=== PATIENT | female | born 1975 | race Caucasian/White ===

== ENCOUNTER → 2017-08-02 15:53 | Outpatient (REF) | payer OTHER, SELFPAY ==
[2017-08-02 17:47] LABS: Amphetamine/Metha Screen,Urine Negative ng/mL (<1000); Barbiturates Screen,Urine Negative ng/mL (<200); Benzodiazepines Screen,Urine Positive ng/mL (200); Cannabinoid Screen,Urine Negative ng/mL (<50); Cocaine Screen,Urine Negative ng/g (<300); Methadone Screen,Urine Negative ng/mL (<300); Opiate Screen,Urine Negative ng/mL (<300); Phencyclidine Screen,Urine Negative ng/mL (<25)
== END ==
LOC: LAB 15:53
PROVIDERS: Visit Provider Emergency Medicine
DX: F41.9 Anxiety disorder, unspecified (principal); R53.83 Other fatigue
CPT/HCPCS: 80305

== ENCOUNTER → 2017-10-27 12:47 | Outpatient (CLI) | payer OTHER, SELFPAY ==
--- NOTE | 2017-10-27 12:50 | MM_ITS ---
MM Dig mamm BI DX w/CAD, US breast RT complete INDICATION: Palpable area right breast ORDERING PHYSICIAN: [facility][1] PATIENT AGE: 42 years COMPARISON: 10/22/2016, 11/13/2016 TECHNIQUE: Standard images performed along with problem solving views of the right breast and right breast ultrasound FINDINGS: There is dense fibroglandular tissue which decreases the sensitivity of mammography. A marker is placed in the area of clinical concern in the upper outer aspect of the right breast. No malignant appearing mass or malignant appearing microcalcifications evident. A loop recorder is present along the medial aspect of the left breast. Areas of asymmetric density are once again noted consistent with asymmetric fibroglandular tissue not significant changed Right breast ultrasound: No suspicious solid or cystic lesion evident. An island of fibroglandular tissue once again noted 9:00 region of the right breast not significant change. IMPRESSION: Negative mammogram and ultrasound. No evidence of malignancy. Scattered areas of asymmetric density consistent with fibroglandular tissue. BI-RADS Category: 2 Benign Finding(s) RECOMMENDED FOLLOW-UP: 1YR - 1 YEAR FOLLOW-UP Negative mammogram and negative ultrasound does not exclude the possibility of malignancy especially in this patient with dense fibroglandular tissue. Any palpable nodule should be managed on a clinical basis. (A letter has been sent to the patient regarding results of the study.)
== END ==
PROVIDERS: Family Provider Emergency Medicine; PCP Emergency Medicine; Visit Provider Nurse Practitioner Obstetrics & Gynecology
DX: R92.8 Other abnormal and inconclusive findings on diagnostic imaging of breast (principal)
CPT/HCPCS: 76641; 77066

== ENCOUNTER → 2017-10-29 14:53 | Outpatient (CLI) | payer OTHER, SELFPAY ==
[2017-10-29 19:37] LABS: Amphetamine/Metha Screen,Urine Negative ng/mL (<1000); Barbiturates Screen,Urine Negative ng/mL (<200); Benzodiazepines Screen,Urine Positive ng/mL (200); Cannabinoid Screen,Urine Negative ng/mL (<50); Cocaine Screen,Urine Negative ng/g (<300); Methadone Screen,Urine Negative ng/mL (<300); Opiate Screen,Urine Negative ng/mL (<300); Phencyclidine Screen,Urine Negative ng/mL (<25)
== END ==
PROVIDERS: Visit Provider Emergency Medicine
DX: Z79.899 Other long term (current) drug therapy (principal)
CPT/HCPCS: 80305

== ENCOUNTER → 2018-02-25 14:10 | Outpatient (REF) | payer OTHER, SELFPAY ==
[2018-02-25 18:33] LABS: Amphetamine/Metha Screen,Urine Negative ng/mL (<1000); Barbiturates Screen,Urine Negative ng/mL (<200); Benzodiazepines Screen,Urine Positive ng/mL (<200); Cannabinoid Screen,Urine Negative ng/mL (<50); Cocaine Screen,Urine Negative ng/mL (<300); Methadone Screen,Urine Negative ng/mL (<300); Opiate Screen,Urine Negative ng/mL (<300); Phencyclidine Screen,Urine Negative ng/mL (<25)
== END ==
LOC: LAB 14:10
PROVIDERS: Visit Provider Emergency Medicine
DX: Z79.899 Other long term (current) drug therapy (principal)
CPT/HCPCS: 80305

== ENCOUNTER → 2018-04-11 08:18 | Outpatient (CLI) | payer OTHER, SELFPAY ==
--- NOTE | 2018-04-11 08:20 | XR_ITS ---
XR foot wt bearing LT 3V, XR foot wt bearing RT 3V Ordering Physician: Farrah Carrillo DPM Patient Age: 43 years: Female HISTORY: ITS.REASON: pain [Left foot- pain at fourth digit.. Right foot-quadrant between third and fourth toe right foot. Pain. TECHNIQUE: Left foot 3 views Weightbearing Right foot 3 views, weightbearing COMPARISON :No previous LEFT FOOT 3 view Osseous structures with no acute findings. No fracture. The fourth metatarsal is relatively short compared to other metatarsals-particularly the adjacent third metatarsal. This yields some foreshortening at the fourth ray & also slight lateral, valgus tilt of the fourth toe on this weightbearing frontal projection view. There is abnormal distance between the first & second metatarsal. Likely Normal variant and seen bilaterally. Bones well mineralized. No erosions. Modest plantar arch bilateral IMPRESSION: -Left foot Relatively foreshortened fourth left metatarsal-yields a relatively short fourth ray , & slight lateral tilt of fourth toe RIGHT FOOT 3 view The right foot appears intact bones well mineralized. No erosions. Joint spaces well-maintained. The fourth ray at the right foot is slightly longer than the left. & Overall normal length.... There is fusion of the IP joint fourth toe & fifth toe. Question minor soft tissue prominence is seen along the lateral aspect fourth toe on the frontal projection.. Modest but adequate plantar arch .: On final review also The note that the proximal phalanx of great toe bilaterally is modest length bilaterally reflecting minor subtle anatomical variation at this level as well. IMPRESSION-right foot Osseous structures right foot intact. Very Minor observations above in text . Fusion of the IP joint of fourth and fifth toe noted.
== END ==
PROVIDERS: PCP Emergency Medicine; Visit Provider Podiatrist
DX: M79.673 Pain in unspecified foot (principal)
CPT/HCPCS: 73630

== ENCOUNTER → 2018-06-10 13:55 | Outpatient (CLI) | payer OTHER, SELFPAY ==
[2018-06-10 14:56] LABS: Amphetamine/Metha Screen,Urine Negative ng/mL (<1000); Barbiturates Screen,Urine Negative ng/mL (<200); Benzodiazepines Screen,Urine Positive ng/mL (<200); Cannabinoid Screen,Urine Negative ng/mL (<50); Cocaine Screen,Urine Negative ng/mL (<300); Methadone Screen,Urine Negative ng/mL (<300); Opiate Screen,Urine Negative ng/mL (<300); Phencyclidine Screen,Urine Negative ng/mL (<25)
[2018-06-17 15:23] LABS: Alprazolam Positive (.); Benzodiazepines Positive ng/mL (Cutoff=100); Clonazepam Negative (Cutoff=100); Flurazepam Negative (Cutoff=100); Lorazepam Negative (Cutoff=100); Midazolam Negative (Cutoff=100); Temazepam Negative (Cutoff=100); Triazolam Negative (Cutoff=100)
== END ==
PROVIDERS: Visit Provider Nurse Practitioner Family
DX: Z79.899 Other long term (current) drug therapy (principal)
CPT/HCPCS: 80305; 80346

== ENCOUNTER → 2018-09-06 17:59 | Outpatient (CLI) | payer SELFPAY ==
[2018-09-06 22:30] LABS: Amphetamine/Metha Screen,Urine Negative ng/mL (<1000); Barbiturates Screen,Urine Negative ng/mL (<200); Benzodiazepines Screen,Urine Positive ng/mL (<200); Cannabinoid Screen,Urine Negative ng/mL (<50); Cocaine Screen,Urine Negative ng/mL (<300); Methadone Screen,Urine Negative ng/mL (<300); Opiate Screen,Urine Negative ng/mL (<300); Phencyclidine Screen,Urine Negative ng/mL (<25)
[2018-09-17 05:10] LABS: Alprazolam Positive (.); Benzodiazepines Positive ng/mL (Cutoff=100); Clonazepam Negative (Cutoff=100); Flurazepam Negative (Cutoff=100); Lorazepam Negative (Cutoff=100); Midazolam Negative (Cutoff=100); Temazepam Negative (Cutoff=100); Triazolam Negative (Cutoff=100)
== END ==
PROVIDERS: Visit Provider Nurse Practitioner Family
DX: Z79.899 Other long term (current) drug therapy (principal)
CPT/HCPCS: 80305; 80346

== ENCOUNTER → 2018-09-08 09:38 | Outpatient (CLI) | payer SELFPAY ==
--- NOTE | 2018-09-08 09:40 | CI_ITS ---
Cerebrovascular Exam Indications: 780.4 Dizziness and giddiness. IMPRESSIONS 1. The bilateral vertebral arteries are patent with normal antegrade flow. 2. Study suggests less than 20% stenosis involving the right internal carotid artery. 3. Study suggests 20-49% stenosis involving the left internal carotid artery, lower end of scale. Carotid duplex study. Complete study and Doppler flow study including spectral analysis, color and coronado scale imaging. Height: Height: 139.7cm. Height: 55in. Weight: Weight: 50.3kg. Weight: 110.8lb. Body mass index: BMI: 25.8kg/m^2. Body surface area: BSA: 1.41m^2. Location: Vascular laboratory. Patient status: Outpatient. Tables: Arterial flow: + +--------+--------+ Location V sys V ed + +--------+--------+ Right CCA - proximal 115cm/s 32.2cm/s + +--------+--------+ Right CCA - distal 101cm/s 36.9cm/s + +--------+--------+ Right ECA 63.6cm/s -------- + +--------+--------+ Right ICA - proximal 81.6cm/s 36.9cm/s + +--------+--------+ Right ICA - mid 95.4cm/s 44.1cm/s + +--------+--------+ Right ICA - distal 84.3cm/s 36.4cm/s + +--------+--------+ Right vertebral 64.4cm/s -------- + +--------+--------+ Left CCA - proximal 110cm/s 34.2cm/s + +--------+--------+ Left CCA - distal 114cm/s 35.3cm/s + +--------+--------+ Left ECA 92.2cm/s -------- + +--------+--------+ Left ICA - proximal 82.3cm/s 39cm/s + +--------+--------+ Left ICA - mid 96.2cm/s 45.3cm/s + +--------+--------+ Left ICA - distal 88.6cm/s 38.3cm/s + +--------+--------+ Left vertebral 57.9cm/s -------- + +--------+--------+ Velocity ratios: + + + + + + Right, V sys Right, V ed Left, V sys Left, V ed + + + + + + Max ICA/dist CCA 0.94 1.2 0.84 1.28 + + + + + + (Report amended ) Electronically signed by: Gabriele aPrikh [id number]
== END ==
PROVIDERS: PCP Emergency Medicine; Visit Provider Urology
DX: I65.23 Occlusion and stenosis of bilateral carotid arteries (principal)
CPT/HCPCS: 93880

== ENCOUNTER → 2018-12-13 13:34 | Outpatient (CLI) | payer SELFPAY ==
[2018-12-13 17:46] LABS: Amphetamine/Metha Screen,Urine Negative ng/mL (<1000); Barbiturates Screen,Urine Negative ng/mL (<200); Benzodiazepines Screen,Urine Positive ng/mL (<200); Cannabinoid Screen,Urine Negative ng/mL (<50); Cocaine Screen,Urine Negative ng/mL (<300); Methadone Screen,Urine Negative ng/mL (<300); Opiate Screen,Urine Negative ng/mL (<300); Phencyclidine Screen,Urine Negative ng/mL (<25)
== END ==
PROVIDERS: Visit Provider Nurse Practitioner Family
DX: Z79.899 Other long term (current) drug therapy (principal)
CPT/HCPCS: 80305

== ENCOUNTER → 2019-03-15 17:05 | Outpatient (CLI) | payer SELFPAY ==
--- NOTE | 2019-03-15 17:08 | MM_ITS ---
PROCEDURE: MM DIG SCREENING MAMM BI W/CAD Patient Age:44Y CLINICAL INDICATION: ROUTINE SCREENING COMPARISON: DMSB DIG MAMM-SCREEN MARTHA W/CAD from 10/22/2016 DMDXUWAR DIG MAMM-DX UNI RT W/AV W/CAD from 11/13/2016 DXBI MM Dig mamm BI DX w/CAD from 10/27/2017 TECHNIQUE: Standard CC and MLO images were obtained. R2 CAD reviewed. Additional axillary CC view bilateral FINDINGS: Mild asymmetry breast tissue most notable at retroareolar region and extending into the upper-outer quadrant bilaterally. Moderately dense breast tissue is most notable right retroareolar region but appears similar to previous studies. The Right breast areas of moderately dense breast tissue right retroareolar region appear unchanged. Overall no new areas of concern right breast Left breast: Stable architecture and appearance. Loop recorder again seen projected over the medial left breast similar to previous study noted 2017 IMPRESSION: Stable bilateral mammogram. No new findings of significant concern Areas of moderately dense breast tissue most notable right retroareolar region appears stable since prior studies. Bilateral follow-up 1 year recommended BI-RAD Category: 2 Benign Finding(s) FOLLOW-UP: 1YR 1 Year Follow-up (A letter has been sent to the patient regarding results of the study.) Dictated by: Manjit Whitehead MD 03/18/2019 10:07 Electronically signed by Manjit Whitehead MD in [place] 03/18/2019 10:07
== END ==
PROVIDERS: PCP Emergency Medicine; Visit Provider Nurse Practitioner Obstetrics & Gynecology
DX: Z12.31 Encounter for screening mammogram for malignant neoplasm of breast (principal)
CPT/HCPCS: 77067

== ENCOUNTER → 2019-10-11 14:58 | Outpatient (CLI) | payer OTHER, SELFPAY ==
--- NOTE | 2019-10-11 15:00 | CA_ITS ---
APPROVED REPORT Medical Editor: CT Laterality: Bilateral Study Quality: Good Indications: stenosis Doppler Spectral Velocity Analysis ECA (R) 81.40/16.30 cm/s ECA (L) 104.00/27.00 cm/s dICA (R) 94.30/43.20 cm/s dICA (L) 105.90/53.00 cm/s Ge (R) 109.70/48.00 cm/s pICA (L) 107.90/44.30 cm/s pICA (R) 108.80/46.30 cm/s dCCA (L) 124.20/47.20 cm/s pCCA (L) 107.90/31.80 cm/s dCCA (R) 111.40/42.00 cm/s pCCA (R) 101.10/32.60 cm/s Vert (L) 65.50/22.20 cm/s Vert (R) 79.70/38.60 cm/s ICA/CCA 0.90 ICA/CCA 1.00 Conclusion Duplex evaluation demonstrates stenosis of the right proximal internal carotid artery <20% with PSV <140 cm/sec, EDV <100 cm/sec, and IC/CC Ratio <4.0. Duplex evaluation demonstrates stenosis of the left proximal internal carotid artery in the range of 20-49% with PSV <140 cm/sec, EDV <100 cm/sec, and IC/CC Ratio <4.0, lower end of the scale. Duplex evaluation demonstrates antegrade flow of the bilateral Vertebral Arteries. Bilateral thyroid cysts noted. Electronically signed by : Gabriele Parikh MD 10/11/2019 17:42:37
== END ==
PROVIDERS: PCP Emergency Medicine; Visit Provider Nurse Practitioner Family
DX: F41.9 Anxiety disorder, unspecified (principal); I65.23 Occlusion and stenosis of bilateral carotid arteries; R55 Syncope and collapse
CPT/HCPCS: 93880

== ENCOUNTER 2019-10-18 06:25 | Day surgery (SDC) | payer OTHER, SELFPAY ==
[2019-10-18] VITALS (7 sets, daily range): BP systolic 92–110; BP diastolic 54–75; PULSE 75–91; RESP 18; TEMP 36.2–36.4; O2SAT 95–100; BMI 61.4; BMI 27.8
[2019-10-18 06:46] LABS: Urine Pregnancy, HCG Qual. Negative (Negative)
[2019-10-18 07:38] LABS: Coronavirus 19 IgG Antibody Negative (Negative); Coronavirus 19 IgM Antibody Negative (Negative)
--- NOTE | 2019-10-18 07:55 | HMH.ANESCL ---
[facility] Anesthesia Checklist - Structural Data Admitted From: Home Planned Operative Procedure/s: colonoscoy Consent for Planned Operative Procedure(s) Verified: Yes - Airway Assessment C-Spine Mobility Assessed: Yes TMJ Mobility Assessed: Yes Dentition: Good Dentition - Neurological Assessment Level of Consciousness: Awake, Alert, Appropriate - Anesthesia Plan Anesthesia Risk discussed: Yes Anesthesia Plan: Verified ASA Class: II Anesthesia Type: MAC [facility] History I have reviewed the patient's past medical history: Yes Medical History: Reports:: Anxiety, Depression Denies:: Cancer, Diabetes Mellitus Type 1, Diabetes Mellitus Type 2, Internal Pacemaker, MRSA, Seizures *Have you ever received a pneumonia vaccine?: No *Have you received a flu vaccine this season?: No Anesthesia experience/problems:: none Other Surgeries: Yes: No Previous Surgery, Cholecystectomy, , Other. No: Pacemaker Amputation: No Fractures: No - *Social History Educational Level: Completed High School Smoking Status: Never smoker Alcohol Intake: never Alcohol Intake Frequency:: other Substance Use Type: denies use *Occupational Status:: employed Housing: house Household Members: family *Travel in the last 8 weeks: None - Psychiatric History Pschychiatric History:: Reports:: Anxiety, Depression Family Hx:: Cancer, Heart Attack, Hypertension
--- NOTE | 2019-10-18 08:50 | HMH.SCOPE ---
- Procedure: Date: 10/18/19 Procedure Performed:: Total colonoscopy to terminal ileum with biopsies of rectal mass Indications:: Patient is a 44-year-old female referred by Dr. Lee's office for colonoscopy for rectal bleeding. She was seen in the office as initial consultation 5 days ago. Patient wonders if the etiology of the bleeding was due to being placed on Depo-Provera. She had started this about 2 years ago. However, she developed a bleeding about 4 months ago. She describes this as dark red blood. It occurs when she is having a bowel movement or even when she is voiding. She has to wear pads. She has no severe pain but does have some minor discomfort. She describes this as being dark and malodorous. She does state that she underwent gynecologic examination and there was no gynecologic etiology. She denies family history of colon cancer. Never had prior colonoscopy. She does request this being done on Wednesday due to her work schedule. Performing Provider:: Sesar Patel MD Referring Provider:: Saul Lee MD Sedation:: Propofol Procedure:: Patient was taken to endoscopy procedure room. She was positioned in a lateral decubitus position. Adequate intravenous sedation was achieved with anesthesia titration of propofol. Variable stiffness Olympus colonoscope was inserted via the anus. In the proximal rectum there was noted to be a friable fungating mass consistent with rectal carcinoma. The colonoscope was able to be advanced beyond this although this was quite large occupying a large portion of the lumen. Colonoscope was advanced to the cecum with some minor difficulty due to floppiness of the sigmoid colon. Ileocecal valve and appendiceal orifice were clearly identified. Colonoscope was advanced a short distance into the terminal ileum which appeared grossly normal. Colonoscope was slowly withdrawn through the colon with careful surveillance. There were no other lesions other than this rectal carcinoma. This was nearly circumferential occupying a large portion of the lumen of the rectum between 8 and 12 cm from the anal verge. Several cold biopsies were obtained. Mass was friable and bled easily. There appeared to be good hemostasis. Colonoscope was withdrawn. Findings:: Proximal/mid rectal carcinoma Specimens:: Biopsies of rectal mass Recommendations:: Will need colorectal surgical referral for definitive management and treatment Complications:: None immediately apparent Estimated blood obtained (mL): 10
== END 2019-10-18 09:25 | disposition home or self-care (01) ==
LOC: OUTP 06:26
PROVIDERS: PCP Emergency Medicine; Visit Provider Surgery
PROC: 0DJD8ZZ Inspection of Lower Intestinal Tract, Via Natural or Artificial Opening Endoscopic (ICD-10-PCS; CPT 45380; principal; 2019-10-18 07:30)
DX: C20 Malignant neoplasm of rectum; K63.89 Other specified diseases of intestine; F41.9 Anxiety disorder, unspecified; F32.9 Major depressive disorder, single episode, unspecified; Z90.49 Acquired absence of other specified parts of digestive tract; Z82.49 Family history of ischemic heart disease and other diseases of the circulatory system; Z79.82 Long term (current) use of aspirin; Z79.899 Other long term (current) drug therapy
CPT/HCPCS: 45380; 36415; 81025; 86328

== ENCOUNTER → 2019-11-30 11:09 | Outpatient (CLI) | payer OTHER, SELFPAY ==
[2019-11-30 12:04] LABS: Basophils # 0.1 K/mm3 (0-0.2); Eosinophils # 0.3 K/mm3 (0.0-0.4); Eosinophils % 3.8 % (0.1-12.0); Hematocrit 34.6 % (37.0-47.0); Hemoglobin 11.4 g/dL (12.2-16.2); Lymphocytes # 1.4 K/mm3 (0.7-4.5); Lymphocytes % 18.6 % (10-50); Mean Corpuscular Hemoglobin 27.5 pg (27.0-31.2); Mean Corpuscular Volume 83.4 fl (81-99); Mean Platelet Volume 7.8 fl (7.4-10.4); Monocytes # 0.3 K/mm3 (0.1-1.0); Monocytes % 4.4 % (1.7-9.3); Neutrophils # 5.3 K/mm3 (1.8-7.8); Neutrophils % 72.1 % (37.0-80.0); Platelet Count 373 K/mm3 (142-424); Red Blood Count 4.15 M/mm3 (4.20-5.40); Red Cell Distribution Width 14.7 % (11.5-17.5); White Blood Count 7.3 K/mm3 (4.8-10.8)
[2019-11-30 12:44] LABS: Chloride 106 mmol/L (98-107)
[2019-11-30 12:45] LABS: Sodium 139 mmol/L (136-145)
[2019-11-30 12:47] LABS: Alanine Aminotransferase 13 U/L (12-78); Aspartate Amino Transferase 21 U/L (14-36); Blood Urea Nitrogen 11 mg/dl (7-17); Estimated Glomerular Filt Rate 79 ml/min (>60); GFR (African American) 95 ML/MIN (>60)
[2019-11-30 12:48] LABS: Albumin Level 3.7 g/dl (3.5-5.0); Albumin/Globulin Ratio 1.4 (1.1-1.8); Alkaline Phosphatase 79 U/L (38-126); Bilirubin,Total 0.3 mg/dl (0.2-1.3); Calcium 8.8 mg/dl (8.4-10.2); Carbon Dioxide 26 mmol/L (22.0-30.0); Globulin 2.7 g/dL (1.3-3.2); Glucose 87 mg/dl (74-100); Iron 22 ug/dL (37-170); Total Protein,Serum 6.4 g/dl (6.3-8.2)
[2019-11-30 12:57] LABS: Total Iron Binding Capacity 396 ug/dL (265-497)
[2019-11-30 13:23] LABS: Ferritin 7.86 ng/ml (6.24-137)
[2019-12-14 14:11] VITALS: BMI 26.2
== END ==
PROVIDERS: Visit Provider Internal Medicine Medical Oncology
DX: C18.9 Malignant neoplasm of colon, unspecified (principal)
CPT/HCPCS: 36415; 80053; 82728; 83540; 83550; 85025

== ENCOUNTER → 2019-12-14 14:22 | Outpatient (CLI) | payer OTHER, SELFPAY ==
[2019-12-14 14:41] LABS: Basophils % 0.3 % (0.1-2.0); Eosinophils # 0.2 K/mm3 (0.0-0.4); Eosinophils % 7.3 % (0.1-12.0); Hematocrit 27.5 % (37.0-47.0); Hemoglobin 9.1 g/dL (12.2-16.2); Lymphocytes # 0.6 K/mm3 (0.7-4.5); Lymphocytes % 18.3 % (10-50); Mean Corpuscular HGB Conc 33.1 g/dL (31.8-35.4); Mean Corpuscular Hemoglobin 27.4 pg (27.0-31.2); Mean Corpuscular Volume 82.8 fl (81-99); Mean Platelet Volume 8.8 fl (7.4-10.4); Monocytes # 0.2 K/mm3 (0.1-1.0); Monocytes % 6.4 % (1.7-9.3); Neutrophils # 2.2 K/mm3 (1.8-7.8); Neutrophils % 67.7 % (37.0-80.0); Platelet Count 280 K/mm3 (142-424); Red Blood Count 3.32 M/mm3 (4.20-5.40); Red Cell Distribution Width 17.3 % (11.5-17.5); White Blood Count 3.2 K/mm3 (4.8-10.8)
[2019-12-14 14:46] LABS: Chloride 103 mmol/L (98-107); Potassium 3.9 mmoL/L (3.5-5.1); Sodium 138 mmol/L (136-145)
[2019-12-14 14:49] LABS: Alanine Aminotransferase 29 U/L (12-78); Albumin Level 3.6 g/dl (3.5-5.0); Albumin/Globulin Ratio 1.4 (1.1-1.8); Alkaline Phosphatase 61 U/L (38-126); Anion Gap 10.9 mEq/L (5-15); Aspartate Amino Transferase 25 U/L (14-36); Bilirubin,Total 0.3 mg/dl (0.2-1.3); Blood Urea Nitrogen 13 mg/dl (7-17); Calcium 8.7 mg/dl (8.4-10.2); Carbon Dioxide 28 mmol/L (22.0-30.0); Estimated Glomerular Filt Rate 92 ml/min (>60); GFR (African American) 111 ML/MIN (>60); Globulin 2.6 g/dL (1.3-3.2); Glucose 119 mg/dl (74-100); Total Protein,Serum 6.2 g/dl (6.3-8.2)
== END ==
PROVIDERS: Visit Provider Internal Medicine Medical Oncology
DX: C20 Malignant neoplasm of rectum (principal)
CPT/HCPCS: 36415; 80053; 85025

== ENCOUNTER → 2019-12-27 11:51 | Outpatient (CLI) | payer OTHER, SELFPAY ==
[2019-12-27 13:58] LABS: Coronavirus 19 IgG Antibody Negative (Negative); Coronavirus 19 IgM Antibody Negative (Negative)
== END ==
PROVIDERS: Visit Provider Surgery
DX: Z01.818 Encounter for other preprocedural examination (principal); Z12.11 Encounter for screening for malignant neoplasm of colon
CPT/HCPCS: 36415; 86328

== ENCOUNTER 2019-12-28 11:10 | Outpatient (CLI) | payer OTHER, SELFPAY ==
[2019-12-28 11:49] VITALS: BMI 25.8
[2019-12-28 11:59] LABS: Basophils % 0.3 % (0.1-2.0); Eosinophils # 0.3 K/mm3 (0.0-0.4); Eosinophils % 8.6 % (0.1-12.0); Hemoglobin 10.4 g/dL (12.2-16.2); Lymphocytes # 0.5 K/mm3 (0.7-4.5); Lymphocytes % 15.3 % (10-50); Mean Corpuscular HGB Conc 30.5 g/dL (31.8-35.4); Mean Corpuscular Hemoglobin 28.8 pg (27.0-31.2); Mean Corpuscular Volume 94.5 fl (81-99); Mean Platelet Volume 9.1 fl (7.4-10.4); Monocytes # 0.3 K/mm3 (0.1-1.0); Monocytes % 9.1 % (1.7-9.3); Neutrophils % 66.7 % (37.0-80.0); Platelet Count 221 K/mm3 (142-424); Red Cell Distribution Width 23.3 % (11.5-17.5)
[2019-12-28 12:00] VITALS: BP 108/63; PULSE 77; RESP 16; TEMP 37.1
[2019-12-28 12:00] LABS: Chloride 107 mmol/L (98-107)
[2019-12-28 12:01] LABS: Sodium 139 mmol/L (136-145)
[2019-12-28 12:03] LABS: Alanine Aminotransferase 13 U/L (12-78); Alkaline Phosphatase 56 U/L (38-126); Aspartate Amino Transferase 22 U/L (14-36); Bilirubin,Total 0.4 mg/dl (0.2-1.3); Blood Urea Nitrogen 15 mg/dl (7-17); Creatinine Clearance Estimated 83 mL/min (50-200); Estimated Glomerular Filt Rate 92 ml/min (>60); GFR (African American) 111 ML/MIN (>60)
[2019-12-28 12:04] LABS: Albumin Level 3.8 g/dl (3.5-5.0); Albumin/Globulin Ratio 1.4 (1.1-1.8); Carbon Dioxide 24 mmol/L (22.0-30.0); Globulin 2.7 g/dL (1.3-3.2); Glucose 102 mg/dl (74-100); Total Protein,Serum 6.5 g/dl (6.3-8.2)
[2019-12-28 12:30] VITALS: BP 113/67; PULSE 76; RESP 18
[2019-12-28 13:00] VITALS: BP 113/66; PULSE 72; RESP 18; TEMP 36.9
== END 2019-12-28 13:05 | disposition home or self-care (01) ==
LOC: INF 11:34
PROVIDERS: PCP Emergency Medicine; Visit Provider Internal Medicine Medical Oncology
DX: C20 Malignant neoplasm of rectum (principal)
CPT/HCPCS: 80053; 85025; 96360; 96375; J2405

== ENCOUNTER 2019-12-29 10:25 | Outpatient (CLI) | payer OTHER, SELFPAY ==
[2019-12-29 10:45] VITALS: BP 94/58; PULSE 72; RESP 20; TEMP 37.1; O2SAT 100
[2019-12-29 11:45] VITALS: BP 102/58; PULSE 68; RESP 20; TEMP 36.9; O2SAT 95
== END 2019-12-29 11:45 | disposition home or self-care (01) ==
LOC: INF 10:27
PROVIDERS: Visit Provider Internal Medicine Medical Oncology
DX: C20 Malignant neoplasm of rectum (principal)
CPT/HCPCS: 96360; 96375; J2405

== ENCOUNTER → 2020-01-10 10:20 | Outpatient (CLI) | payer OTHER, SELFPAY ==
[2020-01-10 10:37] LABS: Basophils % 0.2 % (0.1-2.0); Eosinophils # 0.2 K/mm3 (0.0-0.4); Hematocrit 34.5 % (37.0-47.0); Hemoglobin 11.4 g/dL (12.2-16.2); Lymphocytes # 0.3 K/mm3 (0.7-4.5); Lymphocytes % 6.2 % (10-50); Mean Corpuscular Hemoglobin 30.4 pg (27.0-31.2); Mean Corpuscular Volume 92.1 fl (81-99); Mean Platelet Volume 7.9 fl (7.4-10.4); Monocytes # 0.3 K/mm3 (0.1-1.0); Monocytes % 6.1 % (1.7-9.3); Neutrophils # 4.6 K/mm3 (1.8-7.8); Neutrophils % 83.5 % (37.0-80.0); Platelet Count 211 K/mm3 (142-424); Red Blood Count 3.74 M/mm3 (4.20-5.40); White Blood Count 5.5 K/mm3 (4.8-10.8)
[2020-01-10 11:49] LABS: Chloride 107 mmol/L (98-107); Potassium 4.3 mmoL/L (3.5-5.1); Sodium 140 mmol/L (136-145)
[2020-01-10 11:52] LABS: Alanine Aminotransferase 25 U/L (12-78); Albumin/Globulin Ratio 1.6 (1.1-1.8); Alkaline Phosphatase 62 U/L (38-126); Anion Gap 13.3 mEq/L (5-15); Aspartate Amino Transferase 29 U/L (14-36); Bilirubin,Total 0.5 mg/dl (0.2-1.3); Blood Urea Nitrogen 11 mg/dl (7-17); Carbon Dioxide 24 mmol/L (22.0-30.0); Estimated Glomerular Filt Rate 79 ml/min (>60); GFR (African American) 95 ML/MIN (>60); Globulin 2.5 g/dL (1.3-3.2); Total Protein,Serum 6.5 g/dl (6.3-8.2)
[2020-01-10 11:53] LABS: Calcium 9.2 mg/dl (8.4-10.2); Glucose 95 mg/dl (74-100)
== END ==
PROVIDERS: Visit Provider Internal Medicine Medical Oncology
DX: C20 Malignant neoplasm of rectum (principal)
CPT/HCPCS: 36415; 80053; 85025

== ENCOUNTER → 2020-03-01 09:36 | Outpatient (CLI) | payer OTHER, SELFPAY | PROVIDERS: PCP Emergency Medicine; Visit Provider Surgery | DX: Z03.818 Encounter for observation for suspected exposure to other biological agents ruled out (principal) | CPT/HCPCS: U0003 ==

== ENCOUNTER → 2020-03-21 12:30 | Outpatient (CLI) | payer OTHER, SELFPAY | PROVIDERS: PCP Emergency Medicine; Visit Provider Nurse Practitioner Family | DX: Z03.818 Encounter for observation for suspected exposure to other biological agents ruled out (principal) | CPT/HCPCS: U0003 ==

== ENCOUNTER → 2020-03-29 10:39 | Outpatient (CLI) | payer OTHER, SELFPAY ==
[2020-03-30 16:18] LABS: Covid-19 Nasal PCR Sendout Lex Not Detected
== END ==
PROVIDERS: Visit Provider Surgery
DX: Z03.818 Encounter for observation for suspected exposure to other biological agents ruled out (principal)
CPT/HCPCS: U0004

== ENCOUNTER 2020-05-28 18:16 | Emergency (ER) | payer OTHER, SELFPAY ==
[2020-05-28 18:27] VITALS: BP 120/72; PULSE 86; RESP 18; TEMP 36.6; O2SAT 100; BMI 26.9
[2020-05-28 18:50] VITALS: BP 120/72; PULSE 86; RESP 18; TEMP 36.6; O2SAT 100; BMI 26.8
--- NOTE | 2020-05-28 19:31 | HMH.EDUTC ---
[facility] Disposition Clinical Impression: Tendonitis Disposition: Home, Self-Care Condition on Discharge: Good Instructions: Tendonitis (Alternative Therapy), DI for Tendinitis, How To Perform RICE (Rest, Ice, Compress, Elevate) Additional Instructions: * Rest the extremity, Ice 15-20 minutes 3-4 times daily, , Elevate the extremity when at rest *Elevate when resting *Ibuprofen 600-800mg every 6-8 hours as needed for pain an inflammation. if your doctor has told you that you can take it If need something more can take Tylenol in between doses of Ibuprofen to help Immediately follow up with your family doctor for new or worsening of symptoms, or no noticeable improvement over the next 3-5 days Make sure to follow up with your Family Doctor if no improvement Straight to the ER if any life threatening symptoms, chest pain or trouble breathing Prescriptions: predniSONE [Deltasone 10mg tablet] 10 mg PO BID 5 Days #10 tab Transmission Status[facility] Referrals: Manuel Lee MD [Primary Care Provider] - As needed Time of Disposition: 19:55 Medical Decision Making - Jason Inquiry Pt receiving controlled substance: No Jason was queried for this patient: No Vital Signs: 05/28/20 18:27 05/28/20 18:50 Temperature 97.8 F 97.8 F Temperature Source Skin Oral Pulse Rate [Right Radial] 86 86 Respiratory Rate 18 18 Blood Pressure [Right Arm] 120/72 120/72 Blood Pressure Mean [Right Arm] 88 88 Blood Pressure Source [Right Arm] Automatic Cuff Automatic Cuff Blood Pressure Position [Right Arm] Sitting Sitting 02 Sat by Pulse Oximetry 100 100 Oxygen Delivery Method Room Air Room Air Medical Decision Narrative: Patient denies chest pain or radiation of pain, States that pain started in her left upper arm/shoulder area one month ago after having flu shot and worsens when she lays on it or raises it States that she has used muscle rubs but not helped Patient states that she has taken Prednisone before without complications or reactions [facility] HPI - General Stated complaint: left arm pain Time Seen by Provider: 05/28/20 19:32 Mode of Arrival: Ambulatory Source of Information: Patient Limitations: No Limitations Description of Symptoms (Recalled from Triage Doc. by RN): PATIENT C/O LEFT ARM PAIN SINCE SHE GOT A FLU SHOT 1 MONTH AGO. DENIES INJURY HEENT Symptoms (Recalled from RN notes): No Resp Symptoms (Recalled from RN notes): No Skin Symptoms (Recalled from RN notes): No MS Symptoms (Recalled from RN notes): Yes Functional Status (Recalled from RN notes): WNL - History of Present Illness Provider Complaint: Patient states that she had a flu shot in her left upper arm about a month ago and states that ever since she has been feeling sore in her upper arm and hurts when she lays on it Denies chest pain and denies pain in face or jaw area States that she has taken over the counter Advil for it but it still hurt after she laid on it so she come in - Related Data Home Medications Medication Instructions Recorded Confirmed Aspirin [Low Dose Aspirin EC] 81 mg PO DAILY 10/18/19 04/30/20 atorvastatin 10 mg tablet PO 01/30/20 04/30/20 medroxyprogesterone 150 mg/mL ml IM 04/30/20 04/30/20 intramuscular suspension Previous Rx's Medication Instructions Recorded alprazolam 0.5 mg tablet 0.5 mg PO BID PRN #60 tab 03/08/20 bupropion HCl 150 mg 24 hr tablet, 150 mg PO DAILY #90 tab 03/22/20 extended release predniSONE [Deltasone 10mg tablet] 10 mg PO BID 5 Days #10 tab 05/28/20 Allergies Allergy/AdvReac Type Severity Reaction Status Date / Time No Known Allergies Allergy Verified 04/30/20 15:26 - Worker's Comp Is this a Worker's Comp case?: No [facility] History - Hepatitis A Screen Drug use history?: No High risk sexual behaviors?: No History of sexually transmitted infection?: No Currently employed?: No Childcare worker?: No Do you have indoor plumbing?: Yes Do you have jose
[2020-05-28 19:56] VITALS: BP 120/72; PULSE 86; RESP 18; TEMP 36.6; O2SAT 100
== END 2020-05-28 20:01 | disposition home or self-care (01) ==
PROVIDERS: Emergency Provider Nurse Practitioner; PCP Emergency Medicine
DX: M75.22 Bicipital tendinitis, left shoulder (principal); F41.8 Other specified anxiety disorders; E78.5 Hyperlipidemia, unspecified
CPT/HCPCS: 99202; G0463

== ENCOUNTER → 2020-06-20 12:23 | Outpatient (CLI) | payer OTHER, SELFPAY | LOC: LAB 12:24 → COVID.OUT 12:32 | PROVIDERS: PCP Emergency Medicine; Visit Provider Surgery | DX: Z20.822 Contact with and (suspected) exposure to COVID-19 (principal); Z01.818 Encounter for other preprocedural examination | CPT/HCPCS: U0003 ==

== ENCOUNTER → 2020-07-11 11:42 | Outpatient (CLI) | payer OTHER, SELFPAY | PROVIDERS: PCP Emergency Medicine; Visit Provider Surgery | DX: Z01.818 Encounter for other preprocedural examination (principal); Z20.822 Contact with and (suspected) exposure to COVID-19 | CPT/HCPCS: U0003 ==

== ENCOUNTER → 2020-09-18 12:05 | Outpatient (CLI) | payer OTHER, SELFPAY ==
--- NOTE | 2020-09-18 12:09 | XR_ITS ---
PROCEDURE: XR CERVICAL SPINE 2V CLINICAL INDICATION: bilateral hand numbness COMPARISON: No exams were available for comparison FINDINGS: No fracture or dislocation. No lytic or blastic change. There is normal mineralization. Degenerative disc disease is present at C6-C7. Minimal posterior endplate hypertrophy is present at C4. Other findings:None. IMPRESSION: Mild degenerative changes as described above. Dictated by: Gabriele Parikh MD 09/18/2020 13:35 Gabriele Parikh MD in [place] 09/18/2020 13:35
== END ==
PROVIDERS: PCP Emergency Medicine; Visit Provider Physician Assistant
DX: I65.23 Occlusion and stenosis of bilateral carotid arteries (principal); R07.89 Other chest pain; R20.0 Anesthesia of skin
CPT/HCPCS: 72040

== ENCOUNTER → 2020-09-18 13:44 | Outpatient (CLI) | payer OTHER, SELFPAY ==
[2020-09-18 19:09] LABS: Amphetamine/Metha Screen,Urine Negative ng/ml (<1000)
[2020-09-18 19:10] LABS: Barbiturates Screen,Urine Negative ng/ml (<200)
[2020-09-18 19:11] LABS: Benzodiazepines Screen,Urine Positive ng/ml (<200)
[2020-09-18 19:12] LABS: Cannabinoid Screen,Urine Negative ng/ml (<50); Cocaine Screen,Urine Negative ng/ml (<300)
[2020-09-18 19:13] LABS: Methadone Screen,Urine Negative ng/ml (<300)
[2020-09-18 19:14] LABS: Opiate Screen,Urine Negative ng/ml (<300); Phencyclidine Screen,Urine Negative ng/ml (<25)
== END ==
PROVIDERS: Visit Provider Emergency Medicine
DX: Z79.899 Other long term (current) drug therapy (principal)
CPT/HCPCS: 80305

== ENCOUNTER 2020-09-26 08:01 | Day surgery (SDC) | payer OTHER, SELFPAY ==
[2020-09-26 08:12] VITALS: BMI 27.1
[2020-09-26 08:39] VITALS: BP 105/94; PULSE 85; RESP 16; TEMP 36.9; O2SAT 100
[2020-09-26 08:43] VITALS: PULSE 86
[2020-09-26 09:15] VITALS: BP 113/71; PULSE 88; RESP 17; O2SAT 97
--- NOTE | 2020-09-26 09:25 | HMH.PROC ---
[facility] Procedure Note Procedure Note:: Patient brought to the cardiac Rn Oncology as an outpatient. After informed consent obtained, 1% lidocaine was used to anesthetize the area over the loop recorder and a scalpel was used to dissect down to the loop recorder. Hemostats were used to remove the device without complications. Wound edges were approximated with surgical glue and Steri-Strips applied along with pressure dressing and Tegaderm. Patient tolerated the procedure without complications. She will follow-up in our office in 1 week.
== END 2020-09-26 09:33 | disposition home or self-care (01) ==
LOC: CATHLAB 08:02
PROVIDERS: PCP Emergency Medicine; Visit Provider Internal Medicine
DX: Z45.09 Encounter for adjustment and management of other cardiac device (principal); Z79.899 Other long term (current) drug therapy
CPT/HCPCS: 33286

== ENCOUNTER → 2020-09-30 08:57 | Outpatient (CLI) | payer OTHER, SELFPAY | PROVIDERS: PCP Emergency Medicine; Visit Provider Emergency Medicine | DX: Z12.31 Encounter for screening mammogram for malignant neoplasm of breast (principal) ==

== ENCOUNTER 2020-11-25 14:00 | Outpatient (RCR) | payer OTHER, SELFPAY ==
--- NOTE | 2020-10-23 18:01 | HMH.PTOPEV ---
PT Outpatient Evaluation Rehab PT Outpatient Evaluation Start: 10/23/20 17:08 Freq: Status: Active Protocol: Document 10/23/20 17:40 ELVIS (Rec: 10/23/20 18:00 ELVIS [id number]) Electronically Signed By Tom Snyder, PT 10/23/20 17:40 Outpatient Therapy Subjective History Subjective History Patient is a 45 year old female presenting to outpatient PT with reports of B wrist/hand paresthesia starting approximately 1 year ago of insidious onset. Patient reports that she has previously had a NCS confirming CTS bilaterally. No reports of cervical spine issues. Symptoms worse at night with sleep. Corbidities include hx of anxiety and carotid blockage. Chief Complaint Pain,Paresthesia Symptom Type Ache,Numbness,Tingling Symptoms Relieved By Activity Prior Functional Limitations None Current Functional Limitations Lifting,Housework Symptom Description Intermittent Level of pain today (0-10) 7 Pain scale - at its best (0-10) 0 Pain scale - at its worst (0-10) 8 Wrist/Hand Eval Palpation Tenderness/Visual Exam Wrist pain bilateral Wrist/Hand Palpation Findings Tenderness Flexibility Deficits Wrist Extensors Muscle Length (L) Mild Tightness,(R) Moderate Tightness,(L) Moderate Tightness Wrist Flexors Muscle Length (L) Mild Tightness,(R) Moderate Tightness Wrist Range of Motion Left Wrist Extension Active Range of Motion ( 52 degrees) Wrist Flexion Active Range of Motion ( 75 degrees) Wrist Radial Deviation Active Range of 21 Motion (degrees) Wrist Ulnar Deviation Active Range of 20 Motion (degrees) Right Wrist Extension Active Range of Motion ( 45 degrees) Wrist Flexion Active Range of Motion ( 52 degrees) Wrist Radial Deviation Active Range of 20 Motion (degrees) Wrist Ulnar Deviation Active Range of 17 Motion (degrees) Wrist Manual Muscle Testing Right Wrist Extension Strength Grade 4 Good Wrist Flexion Strength Grade 4 Good Wrist Radial Deviation Strength Grade 4- Good- Wrist Ulnar Deviation Strength Grade 4- Good- Left Wrist Extension Strength Grade 4 Good Wrist Flexion Strength Grade 4 Good Wrist Radial Deviation Strength Grade
== END 2020-11-25 14:05 | disposition home or self-care (01) ==
LOC: PT 14:00
PROVIDERS: PCP Emergency Medicine; Visit Provider Specialist
DX: R20.0 Anesthesia of skin; R20.2 Paresthesia of skin
CPT/HCPCS: 97010; 97018; 97033; 97035; 97110; 97140; 97163

== ENCOUNTER → 2021-02-06 11:45 | Outpatient (CLI) | payer OTHER, SELFPAY | PROVIDERS: Visit Provider Surgery | DX: Z11.52 Encounter for screening for COVID-19 (principal); U07.1 COVID-19 | CPT/HCPCS: C9803; U0003; U0005 ==

== ENCOUNTER → 2021-02-07 10:11 | Outpatient (CLI) | payer OTHER, SELFPAY | PROVIDERS: PCP Surgery; Visit Provider Nurse Practitioner | DX: Z20.822 Contact with and (suspected) exposure to COVID-19 (principal) | CPT/HCPCS: C9803; U0003; U0005 ==

== ENCOUNTER → 2021-02-26 08:00 | Outpatient (CLI) | payer OTHER, SELFPAY ==
[2021-02-27 10:09] LABS: Amphetamine/Metha Screen,Urine Negative ng/ml (<1000); Barbiturates Screen,Urine Negative ng/ml (<200)
[2021-02-27 10:10] LABS: Benzodiazepines Screen,Urine Positive ng/ml (<200)
[2021-02-27 10:11] LABS: Cocaine Screen,Urine Negative ng/ml (<300); Methadone Screen,Urine Negative ng/ml (<300)
[2021-02-27 10:12] LABS: Cannabinoid Screen,Urine Negative ng/ml (<50); Phencyclidine Screen,Urine Negative ng/ml (<25)
[2021-02-27 10:13] LABS: Opiate Screen,Urine Negative ng/ml (<300)
== END ==
PROVIDERS: Visit Provider Emergency Medicine
DX: Z79.899 Other long term (current) drug therapy (principal)
CPT/HCPCS: 80305

== ENCOUNTER 2021-07-24 13:41 | Emergency (ER) | payer OTHER, SELFPAY ==
--- NOTE | 2021-07-24 14:58 | HMH.EDUTC ---
[facility] Disposition Clinical Impression: Viral syndrome Disposition: Home, Self-Care Condition on Discharge: Good Instructions: DI for COVID-19 (Suspected or Confirmed ), Preventing the Spread of Coronavirus Discharge Instructions Additional Instructions: Drink plenty of fluids. Take tylenol or ibuprofen for pain or fever. Follow up with your regular doctor. GO TO THE ER FOR ANY WORSENING SYMPTOMS Quarantine until you know the results of your covid-19 test. Notify your school or workplace of your results and follow their instructions regarding return to work/school. Referrals: Manuel Lee MD [Primary Care Provider] - Forms: Work/School Release Time of Disposition: 15:17 Medical Decision Making - Medical Records Medical records reviewed: No: I reviewed the patient's medical records. - Jason Inquiry Pt receiving controlled substance: No Vital Signs: 07/24/21 15:01 07/24/21 15:30 Temperature 98.2 F 98.2 F Temperature Source Oral Pulse Rate 91 H Pulse Rate [Left] 91 H Respiratory Rate 19 19 Blood Pressure 112/71 Blood Pressure [Right Arm] 112/71 Blood Pressure Mean [Right Arm] 84 02 Sat by Pulse Oximetry 100 - Lab Data Lab results reviewed: Yes: I reviewed the patient's lab results. Lab Results 07/24/21 15:01: Influenza Type A Ag Negative, Influenza Type B Ag Negative 07/24/21 15:01: Strep Scn Rapid Clinic Negative Orders (Tests/Meds): ORDERS Category Date Time Status Covid-19 Nasal PCR ([facility]) Routine Lab 07/24/21 14:56 Received Strep Screen Confirmation Stat Micro 07/24/21 15:01 [facility] - General Stated complaint: covid test Time Seen by Provider: 07/24/21 14:58 - History of Present Illness Provider Complaint: She has been having chillling and body aches for the past 2 days. She has been vaccinated against covid-19. - Related Data Home Medications Medication Instructions Recorded Confirmed Medroxyprogesterone Acetate 150 mg IM [id number] //06/23/21 [Depo-Provera] Previous Rx's Medication Instructions Recorded alprazolam 0.5 mg tablet 0.5 mg PO BID PRN #60 tab 06/23/21 aspirin 81 mg tablet,delayed 81 mg PO DAILY #90 tab 06/23/21 release atorvastatin 10 mg tablet See Rx Instructions .ROUTE 06/23/21 .COMPLEX #90 tab bupropion HCl 150 mg 24 hr tablet, See Rx Instructions .ROUTE 06/23/21 extended release .COMPLEX #90 tab Allergies Allergy/AdvReac Type Severity Reaction Status Date / Time No Known Allergies Allergy Verified 06/23/21 16:27 [facility] History - Hepatitis A Screen Attestation statement:: This patient has been screened for Hepatitis A risk factors. I have reviewed the patient's past medical history: Yes Medical History: Reports:: Anxiety, Cancer, Carotid Stenosis, Depression, Hyperlipidemia Denies:: Diabetes Mellitus Type 1, Diabetes Mellitus Type 2, Internal Pacemaker, MRSA, Seizures Other Medical History: Reports: Chemotherapy, Radiation Therapy Other Surgeries: Yes: No Previous Surgery, Cardiac Catheterization, Cholecystectomy, Colonoscopy, , Other. No: Pacemaker Amputation: No Fractures: No Comment: Loop recorder - Social History Smoking Status: Never smoker Alcohol Intake: never Alcohol Intake Frequency:: other Substance Use Type: denies use Occupational Status: employed Housing: house Household Members: none - Psychiatric History Pschychiatric History:: Reports:: Anxiety, Depression Family Hx:: Cancer, Heart Attack, Hypertension ROS Obtained: Yes All systems reviewed & no additional complaints - Constitutional Constitutional: Reports system reviewed and no additional complaints, except as docu - Eyes Eyes: Reports system reviewed and no additional complaints, except as docu - ENT Ears, Nose, Mouth, and Throat: Reports system reviewed and no additional complaints, except as docu - Cardiovascular Cardiovascular: Reports system reviewed and no additional com
[2021-07-24 15:01] VITALS: BP 112/71; PULSE 91; RESP 19; TEMP 36.8; O2SAT 100; BMI 28.1
[2021-07-24 15:13] LABS: UTC Influenza A Antigen Negative (Negative)
[2021-07-24 15:14] LABS: UTC Influenza B Antigen Negative (Negative); UTC Strep Screen (Rapid) Negative (Negative)
[2021-07-24 15:30] VITALS: BP 112/71; PULSE 91; RESP 19; TEMP 36.8
== END 2021-07-24 15:31 | disposition home or self-care (01) ==
PROVIDERS: Emergency Provider Nurse Practitioner Family; PCP Emergency Medicine
DX: B34.9 Viral infection, unspecified (principal); I65.29 Occlusion and stenosis of unspecified carotid artery; E78.5 Hyperlipidemia, unspecified; F32.A Depression, unspecified; F41.9 Anxiety disorder, unspecified; Z20.822 Contact with and (suspected) exposure to COVID-19; Z86.16 Personal history of COVID-19; Z79.82 Long term (current) use of aspirin; Z79.899 Other long term (current) drug therapy; Z79.3 Long term (current) use of hormonal contraceptives; Z92.21 Personal history of antineoplastic chemotherapy; Z92.3 Personal history of irradiation; Z82.49 Family history of ischemic heart disease and other diseases of the circulatory system; Z80.9 Family history of malignant neoplasm, unspecified
CPT/HCPCS: 87804; 87880; 99213; C9803; G0463; U0003; U0005

== ENCOUNTER 2021-08-15 13:44 | Outpatient (RCR) | payer OTHER, SELFPAY | END 2021-08-15 14:29 | disposition home or self-care (01) | LOC: OT 13:44 | PROVIDERS: Visit Provider Nurse Practitioner Family | DX: M25.532 Pain in left wrist (principal); M25.531 Pain in right wrist | CPT/HCPCS: 97763 ==

== ENCOUNTER 2021-12-23 08:54 | Emergency (ER) | payer OTHER, SELFPAY ==
[2021-12-23 08:55] VITALS: BP 125/89; PULSE 99; RESP 16; TEMP 37.2; O2SAT 98; BMI 28.5
[2021-12-23 09:15] VITALS: BP 125/89; PULSE 99; RESP 16; TEMP 37.2; O2SAT 98; BMI 28.4
--- NOTE | 2021-12-23 09:28 | HMH.EDUTC ---
[facility] [place] Clinical Impression: Shingles Qualifiers: Herpes zoster complications: without complications Qualified Code(s): B02.9 - Zoster without complications Disposition: Home, Self-Care Condition on Discharge: Good Instructions: Shingles, DI for Shingles, Valacyclovir Additional Instructions: Antiviral medicine fights the virus causing your shingles. Start this medicine within 3 days after you notice the first symptoms. This may help prevent nerve pain. A shingles outbreak can cause nerve pain called post-herpetic neuralgia (PHN). PHN can last a long time after you heal from shingle Antihistamines may help decrease itching. Acetaminophen decreases pain and fever. NSAIDs , such as ibuprofen, help decrease swelling, pain, and fever. Self-care: Apply a cool, wet compress or take a cool bath. This may help decrease itching and pain. Keep your rash clean and dry. Cover your rash with a bandage. Do not use bandages with adhesive. Clothes may irritate your skin. Wash your hands often. You will need to be off typically your work place may have a policy but you need to be careful not to spread the rash and return after the lesions are drying and crusting over Prescriptions: Valacyclovir HCl [Valacyclovir] 1,000 mg PO Q8H 7 Days #21 tab Transmission Status: Pending to [facility] Referrals: Manuel Lee MD [Primary Care Provider] - As needed Forms: Work/School Release Medical Decision Making - Jason Inquiry Pt receiving controlled substance: No Jason was queried for this patient: No Vital Signs: 12/23/21 08:55 12/23/21 09:15 Temperature 99 F 99.0 F Temperature Source Oral Oral Pulse Rate [Radial] 99 H 99 H Respiratory Rate 16 16 Blood Pressure [Right Arm] 125/89 125/89 Blood Pressure Mean [Right Arm] 101 101 Blood Pressure Source [Right Arm] Automatic Cuff Blood Pressure Position [Right Arm] Sitting Sitting 02 Sat by Pulse Oximetry 98 98 Oxygen Delivery Method Room Air Room Air [facility] [place] - General Stated complaint: possible shingles Time Seen by Provider: 12/23/21 09:29 Mode of Arrival: Ambulatory Source of Information: Patient Limitations: No Limitations Description of Symptoms (Recalled from Triage Doc. by RN): PATIENT C/O RASH TO RIGHT SIDE THAT SHE BELIEVES IS SHINGLES HEENT Symptoms (Recalled from RN notes): No Resp Symptoms (Recalled from RN notes): No Skin Symptoms (Recalled from RN notes): Yes MS Symptoms (Recalled from RN notes): No Functional Status (Recalled from RN notes): WNL - History of Present Illness Provider Complaint: Patient states that she noticed rash last night on her right side that came around her side and under her breast area States that the rash is itchy and julian States that she was at work and showed it to someone and they told her that she needed to get it looked at so she came in to get it checked out - Related Data Previous Rx's Medication Instructions Recorded alprazolam 0.5 mg tablet 0.5 mg PO BID #60 tab 12/12/21 aspirin 81 mg tablet,delayed 81 mg PO DAILY #90 tab 12/12/21 release atorvastatin 10 mg tablet See Rx Instructions .ROUTE 12/12/21 .COMPLEX #90 tab benzonatate 100 mg capsule 100 mg PO TID PRN #30 cap 12/12/21 bupropion HCl 150 mg 24 hr tablet, See Rx Instructions .ROUTE 12/12/21 extended release .COMPLEX #90 tab Valacyclovir HCl [Valacyclovir] 1,000 mg PO Q8H 7 Days #21 tab 12/23/21 Allergies Allergy/AdvReac Type Severity Reaction Status Date / Time No Known Allergies Allergy Verified 12/12/21 15:39 - Worker's Comp Is this a Worker's Comp case?: No [facility] History - Hepatitis A Screen Attestation statement:: This patient has been screened for Hepatitis A risk factors. I have reviewed the patient's past medical history: Yes Medical History: Reports:: Anxiety, Cancer, Carotid Stenosis, Depression, Hyperlipidemia Denies:: Diabetes Mellitus Type 1, Diabetes Mellitus Type 2, Internal Pacemaker, MRSA
[2021-12-23 09:40] VITALS: BP 125/89; PULSE 99; RESP 16; TEMP 37.2; O2SAT 98
== END 2021-12-23 09:43 | disposition home or self-care (01) ==
PROVIDERS: Emergency Provider Nurse Practitioner; PCP Emergency Medicine
DX: B02.9 Zoster without complications (principal)
CPT/HCPCS: 99212; G0463

== ENCOUNTER 2021-12-25 13:20 | Emergency (ER) | payer OTHER, SELFPAY ==
[2021-12-25 13:38] VITALS: BP 140/81; PULSE 105; RESP 16; TEMP 36.6; O2SAT 98; BMI 28.5
--- NOTE | 2021-12-25 13:44 | HMH.EDUTC ---
[facility] [place] [facility] [place] Clinical Impression: Shingles Qualifiers: Herpes zoster complications: without complications Qualified Code(s): B02.9 - Zoster without complications Disposition: Home, Self-Care Condition on Discharge: Good Instructions: Shingles, DI for Shingles Additional Instructions: Drink plenty of fluids. Take the medications as directed. Follow up with your regular doctor. GO TO THE ER FOR ANY WORSENING SYMPTOMS Finish the medications that were prescribed here at your previous visit. Prescriptions: Ibuprofen [Ibuprofen 600mg Tablet] 600 mg PO Q6HP PRN #30 tab PRN Reason: Mild Pain Transmission Status: Received by [facility] predniSONE [Deltasone 10mg tablet] 10 mg PO DAILY 9 Days #21 tab Transmission Status: Received by [facility] Lidocaine [Lidoderm 5% transdermal patch] 1 each TP DAILYP PRN #5 patch PRN Reason: Moderate Pain Transmission Status: Received by [facility] Referrals: Manuel Lee MD [Primary Care Provider] - Time of Disposition: 13:59 Medical Decision Making - Medical Records Medical records reviewed: No: I reviewed the patient's medical records. - Jason Inquiry Pt receiving controlled substance: No Vital Signs: 12/25/21 13:38 12/25/21 14:00 Temperature 97.9 F 97.9 F Temperature Source Oral Pulse Rate 105 H Pulse Rate [Left] 105 H Respiratory Rate 16 16 Blood Pressure 140/81 Blood Pressure [Right Arm] 140/81 Blood Pressure Mean [Right Arm] 100 02 Sat by Pulse Oximetry 98 [facility] [facility] [place] - General Stated complaint: Possible shingles Time Seen by Provider: 12/25/21 13:44 Mode of Arrival: Ambulatory Source of Information: Patient Limitations: No Limitations Description of Symptoms (Recalled from Triage Doc. by RN): patient comes in with complaints of shingles. patient was seen in [facility] on 12/23 and diagnosed with shingles and given medication. patient is back today due to feeling worse, and now has burning in her stomach HEENT Symptoms (Recalled from RN notes): No Resp Symptoms (Recalled from RN notes): No Skin Symptoms (Recalled from RN notes): Yes MS Symptoms (Recalled from RN notes): No Functional Status (Recalled from RN notes): n/a - History of Present Illness Provider Complaint: She has had a rash beneath her right breast for the past 1 week. She was disagnosed with shingles 2 days ago. She is taking the antiviral medication as prescribed, but she states that she is hurting and feeling worse and needs another medication to help with that. - Related Data Previous Rx's Medication Instructions Recorded alprazolam 0.5 mg tablet 0.5 mg PO BID #60 tab 12/12/21 aspirin 81 mg tablet,delayed 81 mg PO DAILY #90 tab 12/12/21 release atorvastatin 10 mg tablet See Rx Instructions .ROUTE 12/12/21 .COMPLEX #90 tab benzonatate 100 mg capsule 100 mg PO TID PRN #30 cap 12/12/21 bupropion HCl 150 mg 24 hr tablet, See Rx Instructions .ROUTE 12/12/21 extended release .COMPLEX #90 tab Valacyclovir HCl [Valacyclovir] 1,000 mg PO Q8H 7 Days #21 tab 12/23/21 Ibuprofen [Ibuprofen 600mg 600 mg PO Q6HP PRN #30 tab 12/25/21 Tablet] Lidocaine [Lidoderm 5% transdermal 1 each TP DAILYP PRN #5 patch 12/25/21 patch] predniSONE [Deltasone 10mg tablet] 10 mg PO DAILY 9 Days #21 tab 12/25/21 Allergies Allergy/AdvReac Type Severity Reaction Status Date / Time No Known Allergies Allergy Verified 12/12/21 15:39 - Worker's Comp Is this a Worker's Comp case?: No [facility] History - Hepatitis A Screen Attestation statement:: This patient has been screened for Hepatitis A risk factors. I have reviewed the patient's past medical history: Yes Medical History: Reports:: Anxiety, Cancer, Carotid Stenosis, Depression, Hyperlipidemia Denies:: Diabetes Mellitus Type 1, Diabetes Mellitus Type 2, Internal Pacemaker, MRSA, Seizures Other Medical History: Reports: Chemotherapy, Radiation Therapy Other Surg
[2021-12-25 14:00] VITALS: BP 140/81; PULSE 105; RESP 16; TEMP 36.6
== END 2021-12-25 14:01 | disposition home or self-care (01) ==
PROVIDERS: Emergency Provider Nurse Practitioner Family; PCP Emergency Medicine
DX: B02.9 Zoster without complications (principal)
CPT/HCPCS: 99212; G0463

== ENCOUNTER 2022-01-16 17:16 | Emergency (ER) | payer OTHER, SELFPAY ==
--- NOTE | 2022-01-16 18:41 | EXP.UTC ---
Discharge Plan Disposition Patient Disposition: Home, Self-Care Condition: Good Prescriptions Prescriptions: New lidocaine [Lidoderm] 5 % adhesive patch,medicated 1 patch topical Q24H Qty: 15 0RF Rx Instructions: leave on most painful area for up to 12 hrs No Action aspirin 81 mg tablet,delayed release (DR/EC) 81 mg PO DAILY Qty: 90 3RF atorvastatin 10 mg tablet See Rx Instructions .Route .COMPLEX Qty: 90 3RF Rx Instructions: TAKE ONE TABLET BY MOUTH ONCE A DAY benzonatate 100 mg capsule 100 mg PO TID PRN (Reason: cough) Qty: 30 0RF bupropion HCl 150 mg tablet extended release 24 hr See Rx Instructions .ROUTE .COMPLEX Qty: 90 3RF Dose Instruction: TAKE ONE TABLET BY MOUTH ONCE A DAY FOR DEPRESSION Rx Instructions: TAKE ONE TABLET BY MOUTH ONCE A DAY FOR DEPRESSION alprazolam 0.5 mg tablet 0.5 mg PO BID Qty: 60 2RF valacyclovir 1,000 MG tablet 1,000 mg PO Q8H 7 Days Qty: 21 0RF prednisone 10 MG tablet 10 mg PO DAILY 9 Days Qty: 21 0RF Rx Instructions: Take 40 mg for 3 days, then take 20 mg for 3 days, then take 10 mg for 3 days, then stop. ibuprofen 600 MG tablet 600 mg PO Q6HP PRN (Reason: Mild Pain) Qty: 30 0RF lidocaine 1 EACH adhesive patch,medicated 1 each TP DAILYP PRN (Reason: Moderate Pain) Qty: 5 0RF Referrals Referrals: Manuel Lee MD [Primary Care Provider] - Enter time for follow up Clinical Impressions Clinical Impression: Shingles Discharge ED Provider: David Augustine [facility] General Stated complaint: itchy rash under right breast Time Seen by Provider: 01/16/22 18:41 History of Present Illness Provider Complaint: She is having pain and itching of shingles that she was diagnosed with 3 weeks ago. She states that they are getting better, but the itching is about to drive her crazy. Her bra rubs the area and causes worse symptoms. She is still taking oral steroids from when she was diagnosed before. Related Data Previous Rx's Medication Instructions Recorded alprazolam 0.5 mg tablet 0.5 mg PO BID anxiety #60 tabs 12/12/21 aspirin 81 mg tablet,delayed 81 mg PO DAILY [facility] #90 12/12/21 release tabs atorvastatin 10 mg tablet See Rx Instructions .Route 12/12/21 .COMPLEX Cholesterol #90 tabs benzonatate 100 mg capsule 100 mg PO TID PRN cough #30 caps 12/12/21 bupropion HCl 150 mg 24 hr tablet, See Rx Instructions .Route 12/12/21 extended release .COMPLEX #90 tabs valacyclovir 1 gram tablet 1,000 mg PO Q8H 7 days #21 tabs 12/23/21 ibuprofen 600 mg tablet 600 mg PO Q6HP PRN Mild Pain #30 12/25/21 tabs lidocaine 5 % topical patch 1 each topical DAILYP PRN Moderate 12/25/21 Pain #5 patches prednisone 10 mg tablet 10 mg PO DAILY 9 days #21 tabs 12/25/21 lidocaine 5 % topical patch 1 patch topical Q24H #15 ea 01/16/22 (Lidoderm) Allergies Allergy/AdvReac Type Severity Reaction Status Date / Time No Known Allergies Allergy Verified 01/12/22 13:12 PFSH PFSH Medical History TAM (dyspnea on exertion) HLD (hyperlipidemia) Social History Smoking Status: Never smoker second hand exposure: No alcohol intake: never counseling provided: none substance use type: denies use current occupational status: other household members: none housing: house current occupation: [employer] current occupational exposures/hazards: No caffeine: No ROS Obtained: Yes All systems reviewed & no additional complaints except as documented Constitutional Constitutional: Reports system reviewed and no additional complaints, except as documented Eyes Eyes: Reports system reviewed and no additional complaints, except as documented Cardiovascular Cardiovascular: Reports system reviewed and no additional complaints, except as documented Respiratory Respiratory: Reports system reviewed
[2022-01-16 18:54] VITALS: BP 133/81; PULSE 87; RESP 16; TEMP 36.8; O2SAT 100; BMI 28.8
[2022-01-16 19:10] VITALS: BP 133/81; PULSE 87; RESP 16; TEMP 36.8
== END 2022-01-16 19:10 | disposition home or self-care (01) ==
PROVIDERS: Emergency Provider Nurse Practitioner Family; PCP Emergency Medicine
DX: R21 Rash and other nonspecific skin eruption; R06.00 Dyspnea, unspecified; Z79.1 Long term (current) use of non-steroidal anti-inflammatories (NSAID); Z79.52 Long term (current) use of systemic steroids; Z79.82 Long term (current) use of aspirin; Z79.899 Other long term (current) drug therapy
CPT/HCPCS: 99213; G0463

== ENCOUNTER → 2022-01-28 12:15 | Outpatient (CLI) | payer OTHER, SELFPAY | PROVIDERS: PCP Emergency Medicine; Visit Provider Surgery | DX: Z01.812 Encounter for preprocedural laboratory examination (principal); Z20.822 Contact with and (suspected) exposure to COVID-19; Z12.11 Encounter for screening for malignant neoplasm of colon | CPT/HCPCS: C9803; U0003; U0005 ==

== ENCOUNTER 2022-04-03 17:28 | Emergency (ER) | payer OTHER, SELFPAY ==
[2022-04-03 18:25] VITALS: BP 129/81; PULSE 90; RESP 20; TEMP 36.9; O2SAT 100; BMI 28.5
[2022-04-03 18:56] LABS: UTC Strep Screen (Rapid) Negative (Negative)
[2022-04-03 18:57] LABS: UTC Influenza A Antigen Negative (Negative); UTC Influenza B Antigen Negative (Negative)
[2022-04-03 19:01] VITALS: BP 129/81; PULSE 90; RESP 20; TEMP 36.9; O2SAT 100
--- NOTE | 2022-04-03 19:19 | EXP.UTC ---
Discharge Plan Disposition Patient Disposition: Home, Self-Care Condition: Good Prescriptions Prescriptions: No Action aspirin 81 mg tablet,delayed release (DR/EC) 81 mg PO DAILY Qty: 90 3RF atorvastatin 10 mg tablet See Rx Instructions .Route .COMPLEX Qty: 90 3RF Rx Instructions: TAKE ONE TABLET BY MOUTH ONCE A DAY benzonatate 100 mg capsule 100 mg PO TID PRN (Reason: cough) Qty: 30 0RF bupropion HCl 150 mg tablet extended release 24 hr See Rx Instructions .ROUTE .COMPLEX Qty: 90 3RF Dose Instruction: TAKE ONE TABLET BY MOUTH ONCE A DAY FOR DEPRESSION Rx Instructions: TAKE ONE TABLET BY MOUTH ONCE A DAY FOR DEPRESSION alprazolam 0.5 mg tablet 0.5 mg PO BID Qty: 60 2RF Paxlovid (EUA) 300 mg (150 mg x 2)-100 mg tablets,dose pack See Rx Instructions PO .COMPLEX Qty: 30 0RF Rx Instructions: take TWO 150 mg tablets of nirmatrelvir with ONE 100 mg tablet of ritonavir twice daily for 5 days PO valacyclovir 1,000 MG tablet 1,000 mg PO Q8H 7 Days Qty: 21 0RF prednisone 10 MG tablet 10 mg PO DAILY 9 Days Qty: 21 0RF Rx Instructions: Take 40 mg for 3 days, then take 20 mg for 3 days, then take 10 mg for 3 days, then stop. ibuprofen 600 MG tablet 600 mg PO Q6HP PRN (Reason: Mild Pain) Qty: 30 0RF lidocaine 1 EACH adhesive patch,medicated 1 each TP DAILYP PRN (Reason: Moderate Pain) Qty: 5 0RF lidocaine [Lidoderm] 5 % adhesive patch,medicated 1 patch topical Q24H Qty: 15 0RF Rx Instructions: leave on most painful area for up to 12 hrs Referrals Follow up/Referrals: Manuel Lee MD [Primary Care Provider] - See instructions Activity Restrictions/Add. Instructions Additional Instructions/Restrictions: *Monitor Temp, Over the counter Motrin or Tylenol as directed/as needed Tylenol every 4 hours and Motrin every 6 hours (as long as your family doctor has told you that you can take it) for fever or pain. and straight to ER if unable to lower temp less than 101.0 after medication given *Warm salt water gargles may help to soothe the throat *Throat Lozenges? *Warm fluids like tea with honey may help to soothe the throat? *Sleep elevated *Humidifier/Vaporizer Your throat swab was sent for culture. Those results are typically sent to your primary care. Be sure to follow up in 2-3 days with your family doctor/primary care physician if no improvement so they can review those result and treat if necessary. If you don?t have a primary care doctor, I recommend you get one but in the mean time, you will have to return to a walk in clinic Follow up IMMEDIATELY for new or worsening symptoms or no Noticeable improvement over the next 48-72 hours. 911 for difficulty breathing or swallowing You were tested for today for COVID19 your test result should be back in the next 24-48 hours, you may check your results on the [facility] [employer] [facility] Portal Clinical Impressions Clinical Impression: Viral upper respiratory infection Instructions Patient Instructions: DI for Viral Upper Respiratory Infection -- Adult, Common Cold, DI for Fever (Symptom) -- Adult Discharge ED Provider: Emmanuelle Riggs [facility] [place] HPI General Stated complaint: sore throat cough THOMASON Mode of Arrival: Ambulatory Source of Information: Patient Limitations: No Limitations Time Seen by Provider: 04/03/22 19:19 Description of Symptoms (Recalled from Triage Doc. by RN): PATIENT C/O SORE THROAT, COUGH AND CONGESTION SINCE LAST NIGHT HEENT Symptoms (Recalled from RN notes): Yes Resp Symptoms (Recalled from RN notes): Yes Skin Symptoms (Recalled from RN notes): No MS Symptoms (Recalled from RN notes): No Functional Status (Recalled from RN notes): WNL History of Present Illness Provider Complaint: Patient states that she started feeling bad last night States she has been having nasal congestion sore scratchy throat and cough State that she feels like she may have the flu
[2022-04-03 19:41] LABS: Adenovirus,PCR Not Detected (NotDetected); Bordetella Pertussis Not Detected (NotDetected); Chlamydophila Pneumoniae, PCR Not Detected (NotDetected); Coronavirus 19, PCR Not Detected (NotDetected); Coronavirus 229E Not Detected (NotDetected); Coronavirus NL63 Not Detected (NotDetected); Coronavirus OC43 Not Detected (NotDetected); Coronovirus HKU1,PCR Not Detected (NotDetected); Human Metapneumovirus Not Detected (NotDetected); Influenza A, PCR Not Detected (NotDetected); Influenza AH1, 2009 Not Detected (NotDetected); Influenza AH1, PCR Not Detected (NotDetected); Influenza AH3,PCR Not Detected (NotDetected); Influenza B, PCR Not Detected (NotDetected); Mycoplasma Pneumoniae, PCR Not Detected (NotDetected); Parainfluenza 1, PCR Not Detected (NotDetected); Parainfluenza 2, PCR Not Detected (NotDetected); Parainfluenza 3, PCR Not Detected (NotDetected); Parainfluenza 4, PCR Not Detected (NotDetected); Respiratory Syncytial Virus Not Detected (NotDetected); Rhinovirus/Enterovirus Not Detected (NotDetected)
== END 2022-04-03 19:37 | disposition home or self-care (01) ==
PROVIDERS: Emergency Provider Nurse Practitioner; PCP Emergency Medicine
DX: J06.9 Acute upper respiratory infection, unspecified (principal)
CPT/HCPCS: 87581; 87632; 87798; 87804; 87880; 99212; C9803; G0463; U0003; U0005

== ENCOUNTER → 2022-04-27 06:57 | Outpatient (CLI) | payer OTHER, SELFPAY ==
--- NOTE | 2022-04-27 06:58 | CA_ITS ---
FINAL REPORT TECHNIQUE: Color Doppler, duplex Doppler and coronado scale sonography of the bilateral neck arterial vasculature was performed. Velocities were measured in the carotid arteries. Stenosis evaluation based on the validated velocity criteria. CLINICAL HISTORY: QUE FINDINGS: The peak systolic velocity of the right common carotid artery is 78 cm/s. The peak systolic velocity of the right internal carotid artery is 105 cm/s and end diastolic velocity 39 cm/s. The ICA/CCA ratio is 1.2. A small amount of plaque is present. The right external carotid artery is patent. The right vertebral artery is patent with antegrade flow. The peak systolic velocity of the left common carotid artery is 92 cm/s. The peak systolic velocity of the left internal carotid artery is 103 cm/s and end diastolic velocity 37 cm/s. The ICA/CCA ratio is 1.2. A small amount of plaque is present. The left external carotid artery is patent.The left vertebral artery is patent with antegrade flow. IMPRESSION: Less than 50% bilateral carotid stenoses. Bilateral patent vertebral arteries with antegrade flow. If indicated, CTA or MRA could further evaluate. Reviewed, Interpreted and Dictated by Sesar Sloan III, MD Transcribed by Karen Sanabria Authenticated and [facility]
--- NOTE | 2022-04-27 09:07 | HMH.ITSHM ---
Current Home Medications as stated by this patient Lizbeth Delarosa or small business representative. []BUPROPION ATORVASTATIN ALPRAZOLAM
== END ==
PROVIDERS: PCP Emergency Medicine; Visit Provider Nurse Practitioner
DX: R07.89 Other chest pain (principal); I65.23 Occlusion and stenosis of bilateral carotid arteries; E78.2 Mixed hyperlipidemia
CPT/HCPCS: 78452; 93017; 93880; A9502; J2785

== ENCOUNTER → 2022-05-11 14:19 | Outpatient (CLI) | payer OTHER, SELFPAY ==
[2022-05-11 16:50] LABS: Alanine Aminotransferase 27 U/L (12-78); Albumin Level 4.7 g/dl (3.5-5.0); Alkaline Phosphatase 85 U/L (38-126); Aspartate Amino Transferase 29 U/L (14-36); Bilirubin,Indirect 0.5 mg/dL (0.0-0.9); Bilirubin,Total 0.5 mg/dl (0.2-1.3); Bilirubin,Unconjugated 0.5 mg/dL (0.0-1.1); Total Protein,Serum 7.4 g/dl (6.3-8.2)
== END ==
PROVIDERS: PCP Emergency Medicine; Visit Provider Nurse Practitioner
DX: R07.89 Other chest pain (principal); E78.2 Mixed hyperlipidemia; I65.23 Occlusion and stenosis of bilateral carotid arteries
CPT/HCPCS: 36415; 80076

== ENCOUNTER → 2022-06-02 14:50 | Outpatient (CLI) | payer OTHER, SELFPAY ==
[2022-06-02 18:02] LABS: Coronavirus 19, PCR Not Detected (NotDetected); Influenza A, PCR Not Detected (NotDetected); Influenza B, PCR Not Detected (NotDetected)
== END ==
PROVIDERS: PCP Emergency Medicine; Visit Provider Emergency Medicine
DX: R69 Illness, unspecified (principal)
CPT/HCPCS: C9803; U0003; U0005

== ENCOUNTER → 2022-09-30 16:35 | Outpatient (CLI) | payer OTHER, SELFPAY ==
[2022-09-30 17:48] LABS: Coronavirus 19, PCR Not Detected (NotDetected); Influenza A, PCR Not Detected (NotDetected); Influenza B, PCR Not Detected (NotDetected)
== END ==
PROVIDERS: PCP Emergency Medicine; Visit Provider Emergency Medicine
DX: R05.9 Cough, unspecified (principal)
CPT/HCPCS: C9803; U0003; U0005

== ENCOUNTER 2022-10-20 09:56 | Emergency (ER) | payer OTHER, SELFPAY ==
[2022-10-20 09:56] VITALS: BP 179/88; PULSE 108; RESP 17; TEMP 36.8; O2SAT 100; BMI 19.3
--- NOTE | 2022-10-20 09:58 | PC.NURSE ---
DR LEAL AT BEDSIDE
--- NOTE | 2022-10-20 09:59 | PC.NURSE ---
Dr. Palacios at bedside assessing pt. took off pt C-Collar at this time.
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
[2022-10-20 10:20] VITALS: BMI 28.5
[2022-10-20 10:29] VITALS: BP 140/88; PULSE 107; O2SAT 98
[2022-10-20 10:38] LABS: Urine Pregnancy, HCG Qual. Negative (Negative)
--- NOTE | 2022-10-20 10:43 | PC.NURSE ---
pt to ct
--- NOTE | 2022-10-20 10:48 | PC.NURSE ---
Checked in nothing needed at this time
--- NOTE | 2022-10-20 10:57 | PC.WOUNDNOTE ---
Pt back from CT
--- NOTE | 2022-10-20 10:57 | PC.NURSE ---
patient back from CT
[2022-10-20 11:00] VITALS: BP 128/105; PULSE 94; O2SAT 99
--- NOTE | 2022-10-20 11:05 | PC.NURSE ---
XR AT BEDSIDE
--- NOTE | 2022-10-20 11:06 | PC.NURSE ---
patient given pillow for lower back for comfort, brar within reach
[2022-10-20 13:17] VITALS: BP 136/89; PULSE 88; RESP 18; TEMP 36.6; O2SAT 98
== END 2022-10-20 13:20 | disposition home or self-care (01) ==
PROVIDERS: Emergency Provider Emergency Medicine
DX: S32.020A Wedge compression fracture of second lumbar vertebra, initial encounter for closed fracture (principal); S00.93XA Contusion of unspecified part of head, initial encounter; V43.52XA Car driver injured in collision with other type car in traffic accident, initial encounter
CPT/HCPCS: 70450; 71260; 72125; 74177; 81025; 96374; 96375; 99285; J2405; Q9967

== ENCOUNTER → 2022-11-03 09:41 | Outpatient (CLI) | payer OTHER, SELFPAY ==
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
== END ==
PROVIDERS: PCP Emergency Medicine; Visit Provider Nurse Practitioner Family
DX: M54.9 Dorsalgia, unspecified (principal); S32.020A Wedge compression fracture of second lumbar vertebra, initial encounter for closed fracture; V89.2XXA Person injured in unspecified motor-vehicle accident, traffic, initial encounter
CPT/HCPCS: 72158; 76376; A9576

== ENCOUNTER → 2022-11-05 11:24 | Outpatient (POV) | payer OTHER, SELFPAY ==
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
[2022-11-05 12:01] VITALS: BP 128/81; PULSE 95; RESP 17; TEMP 36.6; O2SAT 99; BMI 28.1
== END | disposition home or self-care (01) ==
PROVIDERS: PCP Emergency Medicine; Visit Provider Nurse Practitioner Family
DX: S32.020A Wedge compression fracture of second lumbar vertebra, initial encounter for closed fracture (principal); M54.9 Dorsalgia, unspecified; M51.36 Other intervertebral disc degeneration, lumbar region; M47.816 Spondylosis without myelopathy or radiculopathy, lumbar region
CPT/HCPCS: 99202; G0463

== ENCOUNTER → 2022-11-06 13:27 | Outpatient (CLI) | payer OTHER, SELFPAY ==
--- NOTE | 2022-11-06 13:50 | XR_ITS ---
FINAL REPORT TECHNIQUE: Bone mineral density was calculated of the lumbar spine and hip. CLINICAL HISTORY: compression fx l2 FINDINGS: Using L1-4, the bone mineral density of the spine is 0.829 g/cm2, corresponding to T-score of -2.0. Using the left hip, the bone mineral density of the femoral neck is 0.658 g/cm2, corresponding to a T-score of -1.7. Using the right hip, the bone mineral density of the femoral neck is 0.681 g/cm2, corresponding to a T-score of -1.5. NOTE: T-score: Standard deviation compared with peak bone mass of young adult mean. *Following the recommendations of the International Society of Bone densitometry, classification of hip BMD is based on the lower of two T-scores; total hip or femoral neck. IMPRESSION: Diminished bone mineral density consistent with low bone density. FRAX data shows major osteoporotic fracture of 3.5% and hip fracture of 0.4%. Reviewed, Interpreted and Dictated by Sesar Sloan III, MD Transcribed by Nemo Lozano Authenticated and [facility]
== END ==
PROVIDERS: PCP Emergency Medicine; Visit Provider Anesthesiology
DX: S32.020A Wedge compression fracture of second lumbar vertebra, initial encounter for closed fracture (principal)
CPT/HCPCS: 77080

== ENCOUNTER → 2022-12-09 13:45 | Outpatient (CLI) | payer OTHER, SELFPAY ==
[2022-12-09 14:48] LABS: Basophils % 0.4 % (0.1-2.0); Eosinophils # 0.1 K/mm3 (0.0-0.4); Hematocrit 41.1 % (37.0-47.0); Hemoglobin 13.5 g/dL (12.2-16.2); Lymphocytes # 1.3 K/mm3 (0.7-4.5); Lymphocytes % 24.1 % (10-50); Mean Corpuscular HGB Conc 32.8 g/dL (31.8-35.4); Mean Corpuscular Hemoglobin 31.7 pg (27.0-31.2); Mean Corpuscular Volume 96.6 fl (81-99); Mean Platelet Volume 7.2 fl (7.4-10.4); Monocytes # 0.3 K/mm3 (0.1-1.0); Neutrophils # 3.7 K/mm3 (1.8-7.8); Neutrophils % 67.4 % (37.0-80.0); Platelet Count 268 K/mm3 (142-424); Red Blood Count 4.26 M/mm3 (4.20-5.40); Red Cell Distribution Width 12.7 % (11.5-17.5); White Blood Count 5.5 K/mm3 (4.8-10.8)
[2022-12-09 15:10] LABS: Anion Gap 12.1 mEq/L (5-15); Blood Urea Nitrogen 12 mg/dl (7-17); Calcium 9.5 mg/dl (8.4-10.2); Carbon Dioxide 28 mmol/L (22.0-30.0); Chloride 106 mmol/L (98-107); Estimated Glomerular Filt Rate 78 ml/min (>60); GFR (African American) 94 ML/MIN (>60); Glucose 99 mg/dl (74-100); Potassium 4.1 mmoL/L (3.5-5.1); Sodium 142 mmol/L (136-145)
== END ==
PROVIDERS: PCP Emergency Medicine; Visit Provider Anesthesiology
DX: Z01.812 Encounter for preprocedural laboratory examination (principal); S32.020A Wedge compression fracture of second lumbar vertebra, initial encounter for closed fracture
CPT/HCPCS: 36415; 80048; 85025

== ENCOUNTER 2022-12-11 06:46 | Day surgery (SDC) | payer OTHER, SELFPAY ==
[2022-12-09 10:12] VITALS: BMI 28.5
[2022-12-11] VITALS (17 sets, daily range): BP systolic 103–132; BP diastolic 58–80; PULSE 83–118; RESP 14–18; TEMP 36.4–37.2; O2SAT 97–100
[2022-12-11 07:33] LABS: Urine Pregnancy, HCG Qual. Negative (Negative)
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
--- NOTE | 2022-12-11 09:48 | SUR.PHASEII ---
0945 - Anesthesia made aware of pt's tachycardia, otherwise vitals are stable and pt is asymptomatic. No new orders at this time, will continue to monitor pt.
--- NOTE | 2022-12-11 10:33 | SUR.PHASEII ---
1000 - MD notified of pt c/o pain 11/30 in lower back. Orders received for 4 mg Morphine IV x 1. RB+V. Med given per JUL. 1024 -Reassessed pt's pain, stating it to be a 8 w/ no improvement. MD notified of this, awaiting call back at this time. 1039 - Telephone order received to given 0.5 mg Dilaudid IV x1 now. RB+V. Med given per JUL. 1048 -Pt resting at this time w/ family at bedside. Repositioned pt to aid w/ pain. 1056 - MD at bedside speaking to pt and family.
== END 2022-12-11 12:20 | disposition home or self-care (01) ==
PROVIDERS: PCP Emergency Medicine; Visit Provider Anesthesiology
PROC: (CPT 22514; principal; 2022-12-11 07:30)
DX: S32.029A Unspecified fracture of second lumbar vertebra, initial encounter for closed fracture (principal)
CPT/HCPCS: 22514; 81025; 96374; J2405; J3370

== ENCOUNTER → 2022-12-24 10:26 | Outpatient (POV) | payer OTHER, SELFPAY ==
--- NOTE | 2022-12-24 11:06 | EXP.PAIN.SOA ---
[facility] Pain Management SOAP Note Subjective:: Patient is a pleasant 47-year-old female who presents today for follow-up of kyphoplasty at L2 on 12/11/2022. We are currently treating the patient for degenerative disc disease of lumbar spine with lumbar radiculopathy symptoms, status post L2 kyphoplasty. Today she rates her pain a 4 out of 10. Patient states that she has had improvement following this procedure of her low back pain. She does states she still continues to have some at her low back and on her sides however it is tolerable. Patient is asking if she can return to work now. Patient was previously prescribed Argyle 5 mg twice a day. Patient states that medication did help some of her pain symptoms. She does state that she will occasionally have some muscle spasms. Her Jason is [id number]. It has been reviewed and appropriate. Review of Systems: General: No recent weight changes, no fever, no sleep disturbances Respiratory: No cough, no shortness of air, no recurring pulmonary infections Cardiovascular/peripheral vascular: No chest pain, no palpitations, no edema, no shortness of breath Gastrointestinal: No new onset incontinence, normal bowel movements reported Genitourinary: No new onset incontinence Musculoskeletal: Low back pain Psychiatric: [Normal mood/affect] Neurological: [Denies weakness in extremities], [denies balance issues] Objective:: Physical Exam: General: Alert and oriented x3, no acute distress, pleasant and cooperative Lungs: Respirations even and unlabored, symmetrical chest expansion Eyes: PERRL Musculoskeletal: Flexion and extension of lumbar [spine] somewhat guarded secondary to pain, [antalgic gait noted] Neurological: Speech clear, no gross sensory deficit Assessment:: Degenerative disc disease of lumbar spine with lumbar radiculopathy symptoms, status post L2 kyphoplasty Plan:: I have counseled the patient that she can return to work. I will order the patient methocarbamol 500 mg twice daily and provide a 2-week supply of this medication. Patient's 2 trocar sites are doing well with no erythema noted and skin glue still in place. I have counseled her to start this medication at night to see how she denies and to contact our office if she would like additional refills. Patient will return to clinic in 1 month for reevaluation of symptoms and plan of care. Patient has been instructed to contact the clinic with any concerns before the next appointment. Dr. Flood has reviewed this note and agrees with this plan of care. This note was dictated using voice recognition software and make contain errors or omissions. [facility] Disclaimer: The information contained in this section may have been updated after the patient was seen, as this information can be updated by other users. Medical History Anxiety Cancer Colon cancer TAM (dyspnea on exertion) HLD (hyperlipidemia) Surgical History History of section History of cholecystectomy Family History Other No significant family history Social History Smoking Status: Never smoker second hand exposure: No alcohol intake: never counseling provided: none substance use type: denies use current occupational status: employed Travel in the last 8 weeks: None household members: none housing: house current occupation: [employer] current occupational exposures/hazards: No caffeine: No
[2022-12-24 13:28] VITALS: BP 120/82; PULSE 112; RESP 20; O2SAT 97; BMI 28.5
== END | disposition home or self-care (01) ==
PROVIDERS: Visit Provider Nurse Practitioner Family
DX: M51.16 Intervertebral disc disorders with radiculopathy, lumbar region (principal); Z98.1 Arthrodesis status
CPT/HCPCS: 99212; G0463

== ENCOUNTER 2023-01-25 15:14 | Emergency (ER) | payer OTHER, SELFPAY ==
[2023-01-25 15:47] VITALS: BP 131/83; PULSE 102; RESP 16; TEMP 36.7; O2SAT 99; BMI 25.7
--- NOTE | 2023-01-25 15:49 | EXP.UTC ---
Discharge Plan Disposition Patient Disposition: Home, Self-Care Condition: Good Prescriptions Prescriptions: New benzonatate 200 mg capsule 200 mg PO BID PRN (Reason: cough) Qty: 30 0RF prednisone 10 mg tablet 10 mg PO BID 5 Days Qty: 10 0RF azithromycin [Zithromax] 250 mg tablet 250 mg PO UD DOSE PK Qty: 6 0RF Rx Instructions: Take two (2) tablets today, then one (1) tablet days #2 thru #5 No Action alprazolam 0.5 mg tablet 0.5 mg PO BID Qty: 60 2RF atorvastatin 10 mg tablet See Rx Instructions .Route .COMPLEX Qty: 90 3RF Rx Instructions: TAKE ONE TABLET BY MOUTH ONCE A DAY bupropion HCl 150 mg tablet extended release 24 hr See Rx Instructions .ROUTE .COMPLEX Qty: 90 0RF Rx Instructions: TAKE ONE TABLET BY MOUTH ONCE A DAY FOR DEPRESSION medroxyprogesterone 150 mg/mL suspension See Rx Instructions .ROUTE .COMPLEX Rx Instructions: INJECT 1ML INTRAMUSCULARLY ONCE EVERY 3 MONTHS DIRECTED methocarbamol 500 mg tablet 500 mg PO BID Qty: 28 0RF Referrals Follow up/Referrals: Manuel Lee MD [Primary Care Provider] - See instructions Activity Restrictions/Add. Instructions Additional Instructions/Restrictions: Drink plenty of fluids. Take tylenol or ibuprofen for pain or fever. Take the medications as directed. Follow up with your regular doctor. GO TO THE ER FOR ANY WORSENING SYMPTOMS Clinical Impressions Clinical Impression: Pharyngitis, Acute viral syndrome Stand Alone Forms Stand Alone Forms: Work/School Release Instructions Patient Instructions: Sore Throat, DI for Pharyngitis/Tonsillopharyngitis -- Adult Discharge ED Provider: David Augustine [facility] General Stated complaint: sore throat,cough Time Seen by Provider: 01/25/23 15:49 History of Present Illness Provider Complaint: She states that for the past 4 days she has had a sore throat, chills, and malaise. Related Data Home Medications Medication Instructions Recorded Confirmed medroxyprogesterone 150 mg/mL See Rx Instructions .Route 11/05/22 12/25/22 intramuscular suspension .COMPLEX BC Previous Rx's Medication Instructions Recorded atorvastatin 10 mg tablet See Rx Instructions .Route 11/10/22 .COMPLEX Cholesterol #90 tabs bupropion HCl 150 mg 24 hr tablet, See Rx Instructions .Route 12/14/22 extended release .COMPLEX MOOD #90 tabs methocarbamol 500 mg tablet 500 mg PO BID #28 tabs 12/24/22 alprazolam 0.5 mg tablet 0.5 mg PO BID anxiety #60 tabs 12/25/22 azithromycin 250 mg tablet 250 mg PO UD DOSE PK #6 tabs 01/25/23 (Zithromax) benzonatate 200 mg capsule 200 mg PO BID PRN cough #30 caps 01/25/23 prednisone 10 mg tablet 10 mg PO BID 5 days #10 tabs 01/25/23 Allergies Allergy/AdvReac Type Severity Reaction Status Date / Time No Known Allergies Allergy Verified 01/25/23 15:46 [facility] Disclaimer: The information contained in this section may have been updated after the patient was seen, as this information can be updated by other users. Medical History Anxiety Cancer Colon cancer TAM (dyspnea on exertion) HLD (hyperlipidemia) Surgical History History of section History of cholecystectomy Family History Other No significant family history Social History Smoking Status: Never smoker second hand exposure: No alcohol intake: never counseling provided: none substance use type: denies use current occupational status: other Travel in the last 8 weeks: None household members: none housing: house current occupation: [employer] current occupational exposures/hazards: No caffeine: No ROS Obtained: Yes All systems reviewed & no additional complaints exc
[2023-01-25 16:12] VITALS: BP 131/83; PULSE 102; RESP 16; TEMP 36.7; O2SAT 99
== END 2023-01-25 16:13 | disposition home or self-care (01) ==
PROVIDERS: Emergency Provider Nurse Practitioner Family; PCP Emergency Medicine
DX: J02.9 Acute pharyngitis, unspecified (principal); R53.81 Other malaise; B34.9 Viral infection, unspecified; E78.5 Hyperlipidemia, unspecified; F41.9 Anxiety disorder, unspecified
CPT/HCPCS: 99212; 99214; G0463

== ENCOUNTER → 2023-01-29 14:12 | Outpatient (POV) | payer OTHER, SELFPAY ==
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
[2023-01-29 15:37] VITALS: BP 123/81; PULSE 95; RESP 18; O2SAT 97; BMI 28.5
== END ==
PROVIDERS: PCP Emergency Medicine; Visit Provider Nurse Practitioner Family
DX: M51.16 Intervertebral disc disorders with radiculopathy, lumbar region (principal); M47.26 Other spondylosis with radiculopathy, lumbar region; Z98.890 Other specified postprocedural states
CPT/HCPCS: 99212; G0463

== ENCOUNTER 2023-02-09 13:57 | Day surgery (SDC) | payer OTHER, SELFPAY ==
[2023-02-09 14:01] VITALS: BP 128/71; PULSE 102; RESP 16; TEMP 36.8; O2SAT 93; BMI 27.8
[2023-02-09 14:09] VITALS: BP 103/70; PULSE 100; RESP 18; O2SAT 98
[2023-02-09 14:11] VITALS: BP 103/70; PULSE 100; RESP 18; O2SAT 97
[2023-02-09 14:14] VITALS: BP 117/77; PULSE 98; RESP 16; O2SAT 94
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
== END 2023-02-09 14:14 | disposition home or self-care (01) ==
PROVIDERS: PCP Emergency Medicine; Visit Provider Nurse Anesthetist, Certified Registered
DX: M47.896 Other spondylosis, lumbar region (principal); M51.16 Intervertebral disc disorders with radiculopathy, lumbar region
CPT/HCPCS: 64493; 64494; J1030

== ENCOUNTER → 2023-03-01 14:07 | Outpatient (POV) | payer OTHER, SELFPAY ==
[2023-03-01 14:32] VITALS: BP 123/73; PULSE 97; RESP 20; O2SAT 99; BMI 28.1
--- NOTE | 2023-03-01 14:47 | EXP.PAIN.SOA ---
[facility] [place] Pain Management SOAP Note Subjective:: This patient is a very pleasant 48-year-old female returns our clinic today for follow-up visit after receiving lumbar L4-5, L5-S1 bilateral medial branch block on 02/09/2023. Patient reports 50 to 75% improvement terms of her overall low back pain as well as bilateral hip radicular symptoms. Patient continues taking NSAIDs as well as Tyleno for any residual pain in this area. She describes her low back on the left side is intermittent, dull, aching. Minimal to no pain on the right side. The patient was prescribed Xanax 0.5 mg 1 p.o. 3 times daily from her PCP. Patient states this gives her a headache with nausea and vomiting. She reports discontinuing this medication. Patient's Jason #[id number] has been reviewed and appropriate. Objective:: Patient is awake alert [place] x3. In no acute distress. Flexion-extension lumbar spine somewhat guarded secondary to pain. Deep tendon reflexes upper and lower extremities normal. Motor strength upper and lower extremities normal. There is no gross sensory deficit. Gait is normal. Assessment:: Degenerative disc lumbar spine multilevels. Lumbar radiculopathy. Lumbar spondylosis. Multilevel lumbar facet arthropathy. Plan:: Patient will be rescheduled for a second round of medial branch block bilaterally L4-5, L5-S1 in March. [facility] Disclaimer: The information contained in this section may have been updated after the patient was seen, as this information can be updated by other users. Medical History Anxiety Cancer Colon cancer TAM (dyspnea on exertion) HLD (hyperlipidemia) Surgical History History of section History of cholecystectomy Family History Other No significant family history Social History Smoking Status: Never smoker second hand exposure: No alcohol intake: never counseling provided: none substance use type: denies use current occupational status: other Travel in the last 8 weeks: None household members: none housing: house current occupation: [employer] current occupational exposures/hazards: No caffeine: No
== END ==
PROVIDERS: PCP Emergency Medicine; Visit Provider Nurse Anesthetist, Certified Registered
DX: M51.16 Intervertebral disc disorders with radiculopathy, lumbar region (principal); M47.26 Other spondylosis with radiculopathy, lumbar region
CPT/HCPCS: 99212; G0463

== ENCOUNTER → 2023-04-29 14:58 | Outpatient (POV) | payer OTHER, SELFPAY ==
--- NOTE | 2023-04-29 15:10 | EXP.PAIN.SOA ---
[facility] Pain Management SOAP Note Subjective:: Patient is a pleasant 47-year-old female who presents today for follow-up of insurance denial of lumbar medial branch block #2. We are currently treating the patient for degenerative disc disease of lumbar spine with lumbar radiculopathy symptoms, status post L2 kyphoplasty. Today she rates her pain a 6 out of 10. She was denied the second lumbar medial branch block due to not having at least 80% improvement. Patient states that she did have around 75 on 1 side more than the other. She does state today her pain is in her low back with radiating symptoms down into her legs. She does describe this as an aching, dull sensation that is worse with increased activity or ambulation. She states when she has been on her feet for long periods or working that the symptoms radiate down her legs and make it difficult. She does state the pain interferes with her ability perform activities of daily living. She states in the past where she did have the compression fracture that Dr. Lee's office did prescribe her a osteoporosis medication however she was unable to continue it due to her work schedule. She is requesting if we are able to prescribe anything for that. She also states she frequently experiences muscle spasms. Patient denies any previous muscle relaxers. Her Jason has been reviewed and appropriate. Review of Systems: General: No recent weight changes, no fever, no sleep disturbances Respiratory: No cough, no shortness of air, no recurring pulmonary infections Cardiovascular/peripheral vascular: No chest pain, no palpitations, no edema, no shortness of breath Gastrointestinal: No new onset incontinence, normal bowel movements reported Genitourinary: No new onset incontinence Musculoskeletal: Low back pain, bilateral leg pain Psychiatric: [Normal mood/affect] Neurological: [Denies weakness in extremities], [denies balance issues] Objective:: Physical Exam: General: Alert and oriented x3, no acute distress, pleasant and cooperative Lungs: Respirations even and unlabored, symmetrical chest expansion Eyes: PERRL Musculoskeletal: Flexion and extension of lumbar [spine] somewhat guarded secondary to pain, [antalgic gait noted] Neurological: Speech clear, no gross sensory deficit Assessment:: degenerative disc disease of lumbar spine with lumbar radiculopathy symptoms, status post L2 kyphoplasty Plan:: Patient is experiencing significant pain in her low back and legs with limited range of motion. I have discussed with patient that she may benefit from a lumbar epidural steroid injection. Risk and benefits were discussed with the patient and she would like to proceed forward with this plan of care. Patient is not on any blood thinners. We will schedule her for an LESI L3-L4. I will also send in methocarbamol 500 mg twice daily and provide a 2-week supply of this medication. I have recommended that the patient talk to her primary care provider regarding starting her on a different osteoporosis medication as our office is not as experienced with the different type medications and taking into consideration her overall health history. Patient has been instructed to contact the clinic with any concerns before the next appointment. Dr. Flood has reviewed this note and agrees with this plan of care. This note was dictated using voice recognition software and make contain errors or omissions. [facility] Disclaimer: The information contained in this section may have been updated after the patient was seen, as this information can be updated by other users. Medical History Anxiety Cancer Colon cancer TAM (dyspnea on exertion) HLD (hyperlipidemia) Surgical History History of section History of cholecystectomy Family History Other No si
[2023-04-29 15:15] VITALS: BP 120/78; PULSE 99; RESP 18; O2SAT 98; BMI 28.5
== END | disposition home or self-care (01) ==
PROVIDERS: PCP Nurse Practitioner Family; Visit Provider Nurse Practitioner Family
DX: M51.16 Intervertebral disc disorders with radiculopathy, lumbar region (principal)
CPT/HCPCS: 99212; G0463

== ENCOUNTER → 2023-05-21 11:32 | Day surgery (SDC) | payer OTHER, SELFPAY ==
[2023-05-21 11:43] VITALS: BP 116/80; PULSE 93; RESP 16; TEMP 36.4; O2SAT 100; BMI 28.5
[2023-05-21 12:18] VITALS: BP 129/77; PULSE 99; RESP 18; O2SAT 100
[2023-05-21] MEDS: methylPREDNISolone ACETATE 80MG/ML VIAL 80 MG (12:18)
[2023-05-21 12:19] VITALS: BP 129/77; PULSE 100; RESP 18; O2SAT 100
[2023-05-21 12:20] VITALS: BP 130/75; PULSE 89; RESP 16; O2SAT 100
--- NOTE | 2023-05-21 12:24 | EXP.PAIN.PRO ---
Procedure Date: 05/21/23 Time: 12:10 Anesthesiologist:: Bryan Borrego CRNA Complications:: None Pre-procedure Diagnosis:: Degenerative disc lumbar spine multilevels. Lumbar radiculopathy. Post-procedure Diagnosis:: Same. Indications for Procedure:: Patient is a very pleasant 48-year-old female comes our clinic today for lumbar epidural steroid injection at L3-4 level. Patient complains of low back pain as well as bilateral hip and leg radicular symptoms. She rates her pain 7/10. Procedure Details:: Procedure: Lumbar epidural steroid injection under fluoroscopy Informed consent was obtained and the risks and benefits of the procedure were explained to the patient. The patient was taken to the procedure room and noninvasive monitors placed, including noninvasive blood pressure cuff and pulse oximeter. The back was viewed using C-arm Fluoroscopy and prepped using Chloraprep as a cleansing solution and the L4-L5 interspace was palpated. Skin and subcutaneous tissues were anesthetized using lidocaine 1.5% and a 25-gauge needle. After this, an 18-gauge Touhy epidural needle was placed into the L4-L5 interspace and advanced using fluoroscopic guidance and loss of resistance to air until the epidural space was encountered. After confirmation of needle placement in the epidural space, with dye, a solution containing normal saline, 3 mL and Depo-Medrol 80 mg were incrementally injected into the lumbar epidural space. The patient tolerated the procedure well with no complications. The patient was observed in the Pain Clinic and then discharged home neurologically intact. Plan and Disposition:: Patient was discharged without incident.
== END | disposition home or self-care (01) ==
PROVIDERS: PCP Nurse Practitioner Family; Visit Provider Nurse Anesthetist, Certified Registered
DX: M51.16 Intervertebral disc disorders with radiculopathy, lumbar region (principal)
CPT/HCPCS: 62323; J1040

== ENCOUNTER → 2023-06-02 14:41 | Outpatient (POV) | payer OTHER, SELFPAY ==
--- NOTE | 2023-06-02 15:06 | A.OFFVIS_ITS ---
[facility] Pain Management SOAP Note Subjective:: Patient is a pleasant 48-year-old female who presents today for follow-up of lumbar epidural steroid injection L4-L5 on 05/21/2023. We are currently treating the patient for degenerative disc disease of lumbar spine with lumbar radiculopathy symptoms, status post L2 kyphoplasty. Today she rates her pain a 6 out of 10. Patient denies any new trauma or injury. She denies any change to location or type of pain she experiences. Patient does state that she has had approximately 90% improvement following this injection and feels like it is still continuing to provide additional relief. Patient does state that when she works long hours she does have an occasional flareup however when she sits and rest she does have improvement. Patient does state that she feels like she has been able to increase her activity with decreased pain symptoms following this injection. Patient was previously started on Alendronate 70 mg weekly from her primary care provider who is Dr. Lee however she states she could not tolerate this medication due to having to remember to take it at the same time every week. Patient states from our last visit where we did recommend that she make a follow-up appointment with her PCP and try a different osteoporosis medication however she states she has not made this appointment and that Dr. Lee is no longer there. Patient is requesting if we can prescribe something for her osteoporosis. Her Jason has been reviewed and is appropriate. Review of Systems: General: No recent weight changes, no fever, no sleep disturbances Respiratory: No cough, no shortness of air, no recurring pulmonary infections Cardiovascular/peripheral vascular: No chest pain, no palpitations, no edema, no shortness of breath Gastrointestinal: No new onset incontinence, normal bowel movements reported Genitourinary: No new onset incontinence Musculoskeletal: Low back pain Psychiatric: [Normal mood/affect] Neurological: [Denies weakness in extremities], [denies balance issues] Objective:: Physical Exam: General: Alert and oriented x3, no acute distress, pleasant and cooperative Lungs: Respirations even and unlabored, symmetrical chest expansion Eyes: PERRL Musculoskeletal: Flexion and extension of lumbar [spine] somewhat guarded secondary to pain, [antalgic gait noted] Neurological: Speech clear, no gross sensory deficit Assessment:: Degenerative disc disease of lumbar spine with lumbar radiculopathy symptoms, status post L2 kyphoplasty Plan:: Patient has had significant improvement in her low back and leg symptoms following her lumbar epidural and does not require any additional injection therapy. I have discussed with the patient that I still do recommend she talk to her primary care provider regarding osteoporosis medication however I will send in a 1 month supply of Raloxifene 60 mg daily for osteoporosis. We will follow-up with the patient in 1 month regarding plan of care and how she is doing with the new medication. Patient has been instructed to contact the clinic with any concerns before the next appointment. Dr. Flood has reviewed this note and agrees with this plan of care. This note was dictated using voice recognition software and make contain errors or omissions. [facility] Disclaimer: The information contained in this section may have been updated after the patient was seen, as this information can be updated by other users. Medical History Anxiety Cancer Colon cancer TAM (dyspnea on exertion) HLD (hyperlipidemia) Surgical History History of section History of cholecystectomy Family History Other No significant family history Social History Smoking Status: Never smoker second hand exposure: No alcohol intake: never counseling provided: none substance use type: denies use current occupational status: other Travel in the last 8 weeks: Inside the [place] household members: none housing: house current occupation: [employer] current occupational exposures/hazards: No caffeine: No
[2023-06-02 15:12] VITALS: BP 120/76; PULSE 92; RESP 18; O2SAT 97; BMI 28.5
== END | disposition home or self-care (01) ==
PROVIDERS: PCP Nurse Practitioner Family; Visit Provider Nurse Practitioner Family
DX: M51.16 Intervertebral disc disorders with radiculopathy, lumbar region (principal); M81.0 Age-related osteoporosis without current pathological fracture
CPT/HCPCS: 99212; G0463

== ENCOUNTER 2023-06-04 13:38 | Outpatient (CLI) | payer OTHER, SELFPAY ==
--- NOTE | 2023-06-04 13:42 | MM_ITS ---
PROCEDURE INFORMATION: Exam: MG Bilateral Screening 3D Mammography Exam date and time: 06/04/2023 1:29 PM Age: 48 years old Clinical indication: Screening examination TECHNIQUE: Imaging protocol: Bilateral Screening tomosynthesis and 2D mammography including computer-aided detection (CAD) when performed. COMPARISON: 1. MG MM DIG SCREENING MAMM BI W/CAD 03/15/2019 5:14 PM 2. MG DXBI MM Dig mamm BI DX w/CAD 10/27/2017 1:18 PM FINDINGS: MAMMOGRAPHY: Breast composition: There are scattered areas of fibroglandular density. Mass: None. Architectural distortion: None. Calcifications: No suspicious calcifications. Asymmetric density: None. Skin thickening: None. Axillary adenopathy: None. IMPRESSION: No mammographic evidence of malignancy. Annual screening is recommended unless otherwise clinically indicated. ASSESSMENT: BI-RADS Category 1: Negative
== END 2023-06-04 23:59 ==
LOC: RAD 13:38
PROVIDERS: PCP Nurse Practitioner Family; Visit Provider Nurse Practitioner Obstetrics & Gynecology
DX: Z12.31 Encounter for screening mammogram for malignant neoplasm of breast (principal)
CPT/HCPCS: 77063; 77067

== ENCOUNTER 2023-07-14 14:59 | Outpatient (POV) | payer OTHER, SELFPAY ==
[2023-07-14 15:50] VITALS: BP 107/70; PULSE 96; RESP 18; O2SAT 100; BMI 28.8
--- NOTE | 2023-07-14 16:09 | EXP.PAIN.SOA ---
[facility] Pain Management SOAP Note Subjective:: Patient is a pleasant 48-year-old female who presents today for follow-up. We are currently treating the patient for degenerative disc disease of lumbar spine with lumbar radiculopathy symptoms, L2 kyphoplasty status post. Today she rates her pain a 4 out of 10. Patient states she still continues to get good relief from her previous lumbar epidural that was done in April. Patient states she continues to be able to move around easier with decreased overall pain. Patient is currently prescribed raloxifene 60 mg daily for her osteoporosis. Patient states that this has worked well and does not need refills at this time. Her Jason has been reviewed and is appropriate. Review of Systems: General: No recent weight changes, no fever, no sleep disturbances Respiratory: No cough, no shortness of air, no recurring pulmonary infections Cardiovascular/peripheral vascular: No chest pain, no palpitations, no edema, no shortness of breath Gastrointestinal: No new onset incontinence, normal bowel movements reported Genitourinary: No new onset incontinence Musculoskeletal: Low back pain Psychiatric: [Normal mood/affect] Neurological: [Denies weakness in extremities], [denies balance issues] Objective:: Physical Exam: General: Alert and oriented x3, no acute distress, pleasant and cooperative Lungs: Respirations even and unlabored, symmetrical chest expansion Eyes: PERRL Musculoskeletal: Flexion and extension of lumbar [spine] somewhat guarded secondary to pain, [antalgic gait noted] Neurological: Speech clear, no gross sensory deficit Assessment:: Degenerative disc disease of lumbar spine with lumbar radiculopathy symptoms, L2 kyphoplasty, osteoporosis Plan:: Patient is doing well currently and does not need any additional refills or injections. Patient will return to clinic in 3 months for reevaluation of symptoms and plan of care. Patient has been instructed to contact the clinic with any concerns before the next appointment. Dr. Flood has reviewed this note and agrees with this plan of care. This note was dictated using voice recognition software and make contain errors or omissions. [facility] Disclaimer: The information contained in this section may have been updated after the patient was seen, as this information can be updated by other users. Medical History Anxiety Cancer Colon cancer TAM (dyspnea on exertion) HLD (hyperlipidemia) Surgical History History of section History of cholecystectomy Family History Other No significant family history Social History Smoking Status: Never smoker second hand exposure: No alcohol intake: never counseling provided: none substance use type: denies use current occupational status: employed Travel in the last 8 weeks: None household members: none housing: house current occupation: [employer] current occupational exposures/hazards: No caffeine: No
== END 2023-07-14 23:59 ==
LOC: SC.PAIN 15:00
PROVIDERS: Visit Provider Nurse Practitioner Family
DX: M51.16 Intervertebral disc disorders with radiculopathy, lumbar region (principal); M81.0 Age-related osteoporosis without current pathological fracture
CPT/HCPCS: 99212; G0463

== ENCOUNTER 2023-08-05 20:58 | Emergency (ER) | payer OTHER, SELFPAY ==
--- NOTE | 2023-08-05 21:06 | ED_ITS ---
<Statement entered by Sean Cunningham MD - 08/05/23 23:00> I was consulted by the NORMAN, and we discussed the complexity of the problems being addressed. I approved the treatment and management plan for this patient's care in the emergency department, thus performing a substantive portion of the medical decision making. Sean Cunningham MD, JOSE, FACEP Discharge Plan Disposition Patient Disposition: Home, Self-Care Condition: Good Chief Complaint: Abdominal Pain Prescriptions Prescriptions: No Action alendronate [Fosamax] 70 mg tablet 70 mg PO WEEKLY Qty: 13 3RF alprazolam 0.5 mg tablet 0.5 mg PO BID Qty: 60 2RF atorvastatin 10 mg tablet See Rx Instructions .Route .COMPLEX Qty: 90 3RF Rx Instructions: TAKE ONE TABLET BY MOUTH ONCE A DAY bupropion HCl 150 mg tablet extended release 24 hr See Rx Instructions .ROUTE .COMPLEX Qty: 90 0RF Dose Instruction: TAKE ONE TABLET BY MOUTH ONCE A DAY FOR DEPRESSION Rx Instructions: TAKE ONE TABLET BY MOUTH ONCE A DAY FOR DEPRESSION methocarbamol 500 mg tablet 500 mg PO BID Qty: 28 0RF medroxyprogesterone 150 mg/mL suspension See Rx Instructions .ROUTE .COMPLEX Rx Instructions: INJECT 1ML INTRAMUSCULARLY ONCE EVERY 3 MONTHS DIRECTED raloxifene 60 mg tablet 60 mg PO DAILY Qty: 30 3RF Referrals Follow up/Referrals: Iban Hawk DO [Primary Care Provider] - See instructions Activity Restrictions/Add. Instructions Additional Instructions/Restrictions: Follow-up with PCP for any return or persistence of current symptoms or any change in condition or return to ER as needed Clinical Impressions Clinical Impression: Abdominal pain, epigastric Instructions Patient Instructions: DI for Acute Abdominal Pain Discharge ED Provider: Sean Cunningham General Adult HPI <VALDEMAR Goode - Last Filed: 08/05/23 22:24> General Chief complaint: Abdominal Pain Stated complaint: nausea, body aches , THOMASON chills, Time Seen by Provider: 08/05/23 21:01 History of Present Illness HPI narrative: Patient presents for epigastric abdominal pain with nausea body aches headache chills. Patient gives kind of a nebulous history of onset but reports that today she began having epigastric abdominal discomfort that did not radiate initially but states it is moved around. Patient states has been present all day with waxing and waning intensity. Patient denies fever chills hemoptysis hematochezia melena vomiting or diarrhea. Related Data Home Medications Medication Instructions Recorded Confirmed medroxyprogesterone 150 mg/mL See Rx Instructions .Route 11/05/22 07/14/23 intramuscular suspension .COMPLEX BC Previous Rx's Medication Instructions Recorded atorvastatin 10 mg tablet See Rx Instructions .Route 11/10/22 .COMPLEX Cholesterol #90 tabs alendronate 70 mg tablet (Fosamax) 70 mg PO WEEKLY osteoperosis #13 02/01/23 tabs alprazolam 0.5 mg tablet 0.5 mg PO BID anxiety #60 tabs 02/01/23 methocarbamol 500 mg tablet 500 mg PO BID #28 tabs 04/29/23 bupropion HCl 150 mg 24 hr tablet, See Rx Instructions .Route 06/28/23 extended release .COMPLEX #90 tabs raloxifene 60 mg tablet 60 mg PO DAILY #30 tabs 07/08/23 Allergies Allergy/AdvReac Type Severity Reaction Status Date / Time No Known Allergies Allergy Verified 06/08/23 14:23 PFS <VALDEMAR Goode - Last Filed: 08/05/23 22:24> [facility] Disclaimer: The information contained in this section may have been updated after the patient was seen, as this information can be updated by other users. Medical History Anxiety Cancer Colon cancer TAM (dyspnea on exertion) HLD (hyperlipidemia) Surgical History History of section History of cholecystectomy Family History Other No significant family history Social History Smoking Status: Never smoker second hand exposure: No alcohol intake: never counseling provided: none substance use type: denies use current occupational status: employed Travel in the last 8 weeks: None household members: none housing: house current occupation: [employer] current occupational exposures/hazards: No caffeine: No <VALDEMAR Goode - Last Filed: 08/05/23 22:24> ROS Obtained: Yes Systems reviewed as appropriate & no additional complaints except as documented Physical Exam <VALDEMAR Goode - Last Filed: 08/05/23 22:24> General General appearance: alert and in no apparent distress Head Head exam: atraumatic and normal inspection Eye Eye exam: Present normal appearance, PERRL and EOMI ENT ENT exam: Present normal exam, normal oropharynx and mucous membranes moist Neck Neck exam: Present normal inspection, full ROM and trachea midline; Absent lymphadenopathy Chest Chest inspection: Present normal inspection and symmetric chest wall rise Respiratory Respiratory exam: Present normal lung sounds bilaterally; Absent accessory muscle use Cardiovascular Cardiovascular exam: Present regular rate, normal rhythm, normal heart sounds, +S1 and +S2 Abdominal Exam Abdominal exam: Present soft, tenderness and normal bowel sounds Extremities Exam Extremities exam: Present normal inspection and full ROM Neurological Exam Neurological exam: Present alert and oriented X3 Psychiatric Psychiatric exam: Present normal affect and normal mood Skin Skin exam: Present warm, dry and normal color Medical Decision Making <VALDEMAR Goode - Last Filed: 08/05/23 22:24> Medical Records Medical records reviewed: Yes I reviewed the patient's medical records. Jason Inquiry Pt receiving controlled substance: No Vital Signs: 08/05/23 21:14 Temperature 98.2 F Temperature Source Oral Pulse Rate [Right Brachial] 93 H Respiratory Rate 18 Blood Pressure [Right Arm] 140/89 Blood Pressure Mean [Right Arm] 106 Blood Pressure Source [Right Arm] Automatic Cuff Blood Pressure Position [Right Arm] Supine 02 Sat by Pulse Oximetry 99 Oxygen Delivery Method Room Air Lab Data Lab results reviewed: Yes I reviewed the patient's lab results. Lab Results 08/05/23 21:30: WBC 8.8, RBC 4.69, Hgb 15.6, Hct 47.3 H, MCV 100.8 H, MCH 33.2 H , MCHC 32.9, RDW 12.9, Plt Count 242, MPV 7.7, Neut % (Auto) 87.1 H, Lymph % (Auto) 7.2 L, Henry % (Auto) 3.3, Eos % (Auto) 2.0, Baso % (Auto) 0.4, Neut # (Auto) 7.6, Lymph # (Auto) 0.6 L, Henry # (Auto) 0.3, Eos # (Auto) 0.2, Baso # (Auto) 0.0, Total Counted 100, Neutrophils % (Manual) 88 H, Lymphocytes % (Manual) 5 L, Monocytes % (Manual) 3, Eosinophils % (Manual) 4 H, Platelet Estimate Normal, Macrocytosis 2+, PT 10.4, INR 0.96, D-Dimer 0.29, Sodium 138, Potassium 3.6, Chloride 107, Carbon Dioxide 24, Anion Gap 10.6, BUN 16, Creatinine 0.80, Estimated Creat Clear 94, Estimated GFR 77, Est GFR ( Amer) 93, Glucose 107 H, Calcium 8.8, Magnesium 1.9, Total Bilirubin 0.8, AST 38 H, ALT 32, Alkaline Phosphatase 93, Troponin I < 0.01, Total Protein 7.2, Albumin 4.3, Globulin 2.9, Albumin/Globulin Ratio 1.5, Lipase 46 08/05/23 21:30 08/05/23 21:30 Orders (Tests/Meds): ED MEDICATIONS Discontinued Medications Generic Name Dose Route Start Last Admin Trade Name Freq PRN Reason Stop Dose Admin Acetaminophen 1,000 mg 08/05/23 21:22 08/05/23 21:36 Acetaminophen 1,000mg/100ml Vial IV 08/05/23 21:23 1,000 mg ONCE ONE Administration Belladonna Alkaloids 60 ml 08/05/23 21:22 08/05/23 21:36 Belladonna Alkaloids 60 Ml Ml PO 08/05/23 21:23 60 ml ONCE ONE Administration Ketorolac Tromethamine 15 mg 08/05/23 21:22 08/05/23 21:36 Ketorolac 30mg/Ml Vial IV 08/05/23 21:23 15 mg ONCE ONE Administration ORDERS Category Date Time Status CBC w/Auto Diff [Complete Blood Count Auto Diff] Stat Lab 08/05/23 21:30 Completed CMP [Comprehensive Metabolic Panel] Stat Lab 08/05/23 21:30 Completed D-Dimer Stat Lab 08/05/23 21:30 Completed INR [Prothrombin Time INR] Stat Lab 08/05/23 21:30 Completed Lactic Acid Stat Lab 08/05/23 22:08 Received Lipase Stat Lab 08/05/23 21:30 Completed Magnesium Stat Lab 08/05/23 21:30 Completed Trop I [Troponin I] Stat Lab 08/05/23 21:30 Completed Troponin I Q3H Lab 08/06/23 00:30 Ordered Troponin I Q3H Lab 08/06/23 03:30 Ordered Medical Decision Narrative: In summary patient is a 48-year-old female who presents to the emergency department for evaluation of multiple complaints. Ultimately is epigastric abdominal pain. Patient is hemodynamically stable upon arrival, afebrile. Physical exam is remarkable for epigastric abdominal pain that is moderate in intensity with no radiation. Bowel sounds are normal. Remainder of her exam is nonfocal and unremarkable including no neurologic infectious findings. Differential diagnosis includes GERD versus ulcer versus gastroenteritis versus ACS versus PE versus viral bacterial infection etc. Initial workup will be conducted with hematologic labs. Initial interventions include Tylenol Toradol GI cocktail. Initial workup reviewed by me shows that her hematologic labs are nonactionable including undetectable troponin and normal D-dimer no white count no shift. Upon repeat evaluation she reports improvement in her epigastric abdominal pain after administration of GI cocktail. Given this appropriate discharge with instructions to follow-up with PCP for any change or worsening persistence of symptoms. Patient verbalized understanding and agreement. <Sean Cunningham MD - Last Filed: 08/05/23 22:23> Vital Signs: 08/05/23 21:14 Temperature 98.2 F Temperature Source Oral Pulse Rate [Right Brachial] 93 H Respiratory Rate 18 Blood Pressure [Right Arm] 140/89 Blood Pressure Mean [Right Arm] 106 Blood Pressure Source [Right Arm] Automatic Cuff Blood Pressure Position [Right Arm] Supine 02 Sat by Pulse Oximetry 99 Oxygen Delivery Method Room Air Lab Data Lab Results 08/05/23 21:30: WBC 8.8, RBC 4.69, Hgb 15.6, Hct 47.3 H, MCV 100.8 H, MCH 33.2 H , MCHC 32.9, RDW 12.9, Plt Count 242, MPV 7.7, Neut % (Auto) 87.1 H, Lymph % (Auto) 7.2 L, Henry % (Auto) 3.3, Eos % (Auto) 2.0, Baso % (Auto) 0.4, Neut # (Auto) 7.6, Lymph # (Auto) 0.6 L, Henry # (Auto) 0.3, Eos # (Auto) 0.2, Baso # (Auto) 0.0, Total Counted 100, Neutrophils % (Manual) 88 H, Lymphocytes % (Manual) 5 L, Monocytes % (Manual) 3, Eosinophils % (Manual) 4 H, Platelet Estimate Normal, Macrocytosis 2+, PT 10.4, INR 0.96, D-Dimer 0.29, Sodium 138, Potassium 3.6, Chloride 107, Carbon Dioxide 24, Anion Gap 10.6, BUN 16, Creatinine 0.80, Estimated Creat Clear 94, Estimated GFR 77, Est GFR ( Amer) 93, Glucose 107 H, Calcium 8.8, Magnesium 1.9, Total Bilirubin 0.8, AST 38 H, ALT 32, Alkaline Phosphatase 93, Troponin I < 0.01, Total Protein 7.2, Albumin 4.3, Globulin 2.9, Albumin/Globulin Ratio 1.5, Lipase 46 Orders (Tests/Meds): ED MEDICATIONS Discontinued Medications Generic Name Dose Route Start Last Admin Trade Name Freq PRN Reason Stop Dose Admin Acetaminophen 1,000 mg 08/05/23 21:22 08/05/23 21:36 Acetaminophen 1,000mg/100ml Vial IV 08/05/23 21:23 1,000 mg ONCE ONE Administration Belladonna Alkaloids 60 ml 08/05/23 21:22 08/05/23 21:36 Belladonna Alkaloids 60 Ml Ml PO 08/05/23 21:23 60 ml ONCE ONE Administration Ketorolac Tromethamine 15 mg 08/05/23 21:22 08/05/23 21:36 Ketorolac 30mg/Ml Vial IV 08/05/23 21:23 15 mg ONCE ONE Administration ORDERS Category Date Time Status CBC w/Auto Diff [Complete Blood Count Auto Diff] Stat Lab 08/05/23 21:30 Completed CMP [Comprehensive Metabolic Panel] Stat Lab 08/05/23 21:30 Completed D-Dimer Stat Lab 08/05/23 21:30 Completed INR [Prothrombin Time INR] Stat Lab 08/05/23 21:30 Completed Lactic Acid Stat Lab 08/05/23 22:08 Received Lipase Stat Lab 08/05/23 21:30 Completed Magnesium Stat Lab 08/05/23 21:30 Completed Trop I [Troponin I] Stat Lab 08/05/23 21:30 Completed Troponin I Q3H Lab 08/06/23 00:30 Ordered Troponin I Q3H Lab 08/06/23 03:30 Ordered ECG Data Tracing #1: I reviewed this ECG and interpreted as documented below: Ventricular rate 96 normal sinus rhythm no acute ischemic changes noted normal axis no conduction abnormalities. Critical Care <VALDEMAR Goode - Last Filed: 08/05/23 22:24> Critical Care Time Critical Care Time: No
[2023-08-05 21:14] VITALS: BP 140/89; PULSE 93; RESP 18; TEMP 36.8; O2SAT 99; BMI 25.7
--- NOTE | 2023-08-05 21:24 | PC.NURSE ---
rounded on pt, provided call light. pt didnt express any concerns.
[2023-08-05] MEDS: ACETAMINOPHEN 1,000MG/100ML VIAL 1000 MG IV (21:36)
[2023-08-05] MEDS: KETOROLAC 30MG/ML VIAL 15 MG IV (21:36)
[2023-08-05] MEDS: BELLADONNA ALKALOIDS 60 ML ML PO (21:36)
--- NOTE | 2023-08-05 21:42 | ECG_ITS ---
APPROVED REPORT Exam: Resting ECG HR:96 bpm ECG Measurements Heart Rate 96 AXES UT 147 P 59 QRSd 73 QRS 42 QT 336 T 53 QTc 389 Conclusion SINUS RHYTHM NORMAL ECG Electronically signed by : BALDEMAR RENEE, 08/06/2023 03:23:37
[2023-08-05 21:46] LABS: Basophils % 0.4 % (0.1-2.0); Chloride 107 mmol/L (98-107); Eosinophils # 0.2 K/mm3 (0.0-0.4); Hematocrit 47.3 % (37.0-47.0); Hemoglobin 15.6 g/dL (12.2-16.2); Lymphocytes # 0.6 K/mm3 (0.7-4.5); Lymphocytes % 7.2 % (10-50); Mean Corpuscular HGB Conc 32.9 g/dL (31.8-35.4); Mean Corpuscular Hemoglobin 33.2 pg (27.0-31.2); Mean Corpuscular Volume 100.8 fl (81-99); Mean Platelet Volume 7.7 fl (7.4-10.4); Monocytes # 0.3 K/mm3 (0.1-1.0); Monocytes % 3.3 % (1.7-9.3); Neutrophils # 7.6 K/mm3 (1.8-7.8); Neutrophils % 87.1 % (37.0-80.0); Platelet Count 242 K/mm3 (142-424); Red Blood Count 4.69 M/mm3 (4.20-5.40); Red Cell Distribution Width 12.9 % (11.5-17.5); Sodium 138 mmol/L (136-145); White Blood Count 8.8 K/mm3 (4.8-10.8)
[2023-08-05 21:47] LABS: Potassium 3.6 mmoL/L (3.5-5.1)
[2023-08-05 21:48] LABS: MANUAL DIFFERENTIAL MANUAL DIFFERENTIAL (MANUAL DIFF)
[2023-08-05 21:49] LABS: Alanine Aminotransferase 32 U/L (12-78); Albumin Level 4.3 g/dl (3.5-5.0); Alkaline Phosphatase 93 U/L (38-126); Anion Gap 10.6 mEq/L (5-15); Aspartate Amino Transferase 38 U/L (14-36); Bilirubin,Total 0.8 mg/dl (0.2-1.3); Blood Urea Nitrogen 16 mg/dl (7-17); Carbon Dioxide 24 mmol/L (22.0-30.0); Creatinine Clearance Estimated 94 mL/min (50-200); Estimated Glomerular Filt Rate 77 ml/min (>60); GFR (African American) 93 ML/MIN (>60)
[2023-08-05 21:50] LABS: Albumin/Globulin Ratio 1.5 (1.1-1.8); Calcium 8.8 mg/dl (8.4-10.2); Globulin 2.9 g/dL (1.3-3.2); Glucose 107 mg/dl (74-100); INR 0.96 (0.9-1.1); Lipase 46 U/L (23-300); Magnesium 1.9 mg/dl (1.6-2.3); Prothrombin Time 10.4 seconds (10.1-12.5); Total Protein,Serum 7.2 g/dl (6.3-8.2)
[2023-08-05 21:56] LABS: D-Dimer 0.29 ug/mL (0.0-0.5)
[2023-08-05 22:00] LABS: Eosinophils % 4 % (0-3); Lymphocytes % 5 % (10-50); Macrocytosis 2+; Monocytes % 3 % (2-9); Neutrophils % 88 % (42-76); Platelet Estimate Normal; Total Cells Counted 100
[2023-08-05 22:02] LABS: Troponin I < 0.01 ng/ml (0.00-0.034)
[2023-08-05 22:28] LABS: Lactic Acid 1.5 mmol/L (0.7-2.1)
[2023-08-05 22:34] VITALS: BP 125/80; PULSE 99; RESP 18; TEMP 37.1; O2SAT 99
== END 2023-08-05 22:36 | disposition home or self-care (01) ==
PROVIDERS: Physician Assistant; Emergency Provider Student in an Organized Health Care Education/Training Program; PCP Internal Medicine
DX: R10.13 Epigastric pain (principal); R11.0 Nausea; R51.9 Headache, unspecified; R68.83 Chills (without fever); Z85.038 Personal history of other malignant neoplasm of large intestine; E78.5 Hyperlipidemia, unspecified
CPT/HCPCS: 80053; 83605; 83690; 83735; 84484; 85007; 85025; 85378; 85610; 93005; 96374; 96375; 99285; J0131

== ENCOUNTER 2023-10-11 15:07 | Outpatient (POV) | payer OTHER, SELFPAY ==
[2023-10-11 15:14] VITALS: BP 116/72; PULSE 91; RESP 16; O2SAT 97; BMI 29.0
--- NOTE | 2023-10-11 15:24 | EXP.PAIN.SOA ---
[facility] Pain Management SOAP Note Subjective:: Patient is a pleasant 48-year-old female who presents today for medication refill and follow-up. Today she rates her pain a 5 out of 10. Patient denies any new trauma or injury. She does state her pain is all throughout her low back with radiating symptoms into her legs. Patient does describe it as a aching, throbbing sensation with numbness and tingling and does state it interferes with her ability to perform activities of daily living. Patient did previously have her last lumbar epidural in April that did provide 90% relief lasting several months. Patient does state that she feels like this has officially worn off and is requesting if we can get her scheduled for another injection. During the time that this injection worked she does feel much more functional and able to do more with decreased pain symptoms. Patient is prescribed raloxifene 60 mg daily for her osteoporosis from our office. Patient states this is working well and denies any side effects. She is requesting refills. Her Jason has been reviewed and is appropriate. Review of Systems: General: No recent weight changes, no fever, no sleep disturbances Respiratory: No cough, no shortness of air, no recurring pulmonary infections Cardiovascular/peripheral vascular: No chest pain, no palpitations, no edema, no shortness of breath Gastrointestinal: No new onset incontinence, normal bowel movements reported Genitourinary: No new onset incontinence Musculoskeletal: Low back pain, bilateral leg pain Psychiatric: [Normal mood/affect] Neurological: [Denies weakness in extremities], [denies balance issues] Objective:: Physical Exam: General: Alert and oriented x3, no acute distress, pleasant and cooperative Lungs: Respirations even and unlabored, symmetrical chest expansion Eyes: PERRL Musculoskeletal: Flexion and extension of lumbar [spine] somewhat guarded secondary to pain, [antalgic gait noted] bilateral leg raise positive Neurological: Speech clear, no gross sensory deficit Assessment:: Degenerative disc disease of lumbar spine with lumbar radiculopathy symptoms, L2 kyphoplasty, osteoporosis Plan:: I will refill the patient's raloxifene and provide a 4-month supply of this medication. I have also discussed due to the patient's limited range of motion of her lumbar spine and positive bilateral leg raise that she may benefit from a repeat lumbar epidural steroid injections. Risk and benefits were discussed with the patient and she would like to proceed forward with this plan of care. Patient is not on any blood thinners. Patient has continued conservative treatment with at home exercising and stretching between injections with no additional relief. We will schedule the patient for her repeat LESI L3-L4 under fluoroscopy. Patient has previously had 90% relief lasting more than 3 months with overall improvement in function. Patient has been instructed to contact the clinic with any concerns before the next appointment. Dr. Flood has reviewed this note and agrees with this plan of care. This note was dictated using voice recognition software and make contain errors or omissions. [facility] Disclaimer: The information contained in this section may have been updated after the patient was seen, as this information can be updated by other users. Medical History Anxiety Cancer Colon cancer TAM (dyspnea on exertion) HLD (hyperlipidemia) Surgical History History of section History of cholecystectomy Family History Other No significant family history Social History (Updated 10/08/23 @ 10:31 by Bianca Lozoya APRN) Smoking Status: Never smoker second hand exposure: No alcohol intake: never counseling provided: none substance use type: denies use current occupational status: other Travel in the last 8 weeks: None household members: none housing: apartment lives independently: Yes marital status: single number of children: 1 number of grandchildren: 0 education level: high school current occupation: [employer] current occupational exposures/hazards: No caffeine: No working smoke detector in home: Yes fire extinguisher in home: No carbon monox detector in home: No firearms in home: No do you feel safe at home: Yes victim of physical abuse: No victim of emotional abuse: No victim of sexual abuse: No would you like helpful sources: No
== END 2023-10-11 23:59 | disposition home or self-care (01) ==
PROVIDERS: PCP Nurse Practitioner Family; Visit Provider Nurse Practitioner Family
DX: M51.16 Intervertebral disc disorders with radiculopathy, lumbar region (principal); M81.0 Age-related osteoporosis without current pathological fracture; Z87.310 Personal history of (healed) osteoporosis fracture
CPT/HCPCS: 99212; G0463

== ENCOUNTER 2023-11-02 13:50 | Day surgery (SDC) | payer OTHER, SELFPAY ==
[2023-11-02 14:02] VITALS: BP 133/70; PULSE 69; RESP 18; TEMP 36.4; O2SAT 100; BMI 30.4
[2023-11-02] MEDS: methylPREDNISolone ACETATE 80MG/ML VIAL 80 MG (14:14)
[2023-11-02 14:15] VITALS: BP 126/77; PULSE 99; RESP 18; O2SAT 100
--- NOTE | 2023-11-02 14:16 | EXP.PAIN.PRO ---
Procedure Date: 11/02/23 Time: 14:12 Anesthesiologist:: Bryan Borrego CRNA Complications:: None Pre-procedure Diagnosis:: Degenerative disc lumbar spine multilevels. Lumbar radiculopathy. Status post kyphoplasty lumbar spine. Post-procedure Diagnosis:: Same. Indications for Procedure:: Patient is a very pleasant 48-year-old female comes our clinic today for repeat lumbar epidural steroid injection at L3-4 level. She reports significant improvement terms of her overall low back pain as well as bilateral hip and leg radicular symptoms with previous injection same level. Today she rates her pain 6/10. She describes low back pain as well as bilateral hip and leg radicular symptoms. Procedure Details:: Procedure: Lumbar epidural steroid injection under fluoroscopy Informed consent was obtained and the risks and benefits of the procedure were explained to the patient. The patient was taken to the procedure room and noninvasive monitors placed, including noninvasive blood pressure cuff and pulse oximeter. The back was viewed using C-arm Fluoroscopy and prepped using Chloraprep as a cleansing solution and the L3-4 interspace was palpated. Skin and subcutaneous tissues were anesthetized using lidocaine 1.5% and a 25-gauge needle. After this, an 18-gauge Touhy epidural needle was placed into the L3-4 interspace and advanced using fluoroscopic guidance and loss of resistance to air until the epidural space was encountered. After confirmation of needle placement in the epidural space, with dye, a solution containing normal saline, 3 mL and Depo-Medrol 80 mg were incrementally injected into the lumbar epidural space. The patient tolerated the procedure well with no complications. The patient was observed in the Pain Clinic and then discharged home neurologically intact. Plan and Disposition:: Patient was discharged without incident.
[2023-11-02 14:17] VITALS: BP 126/77; PULSE 99; RESP 18; O2SAT 100
[2023-11-02 14:20] VITALS: BP 121/76; PULSE 91; RESP 16; O2SAT 100
== END 2023-11-02 14:21 | disposition home or self-care (01) ==
PROVIDERS: PCP Nurse Practitioner Family; Visit Provider Nurse Anesthetist, Certified Registered
DX: M51.16 Intervertebral disc disorders with radiculopathy, lumbar region (principal)
CPT/HCPCS: 62323; J1010

== ENCOUNTER 2023-11-18 14:45 | Outpatient (POV) | payer OTHER, SELFPAY ==
[2023-11-18 14:51] VITALS: BP 123/83; PULSE 94; RESP 16; O2SAT 97; BMI 30.2
--- NOTE | 2023-11-18 15:04 | EXP.PAIN.SOA ---
[facility] Disclaimer: The information contained in this section may have been updated after the patient was seen, as this information can be updated by other users. Medical History (Updated 11/18/23 @ 15:07 by Kamla Pillai APRN) Recurrent major depression resistant to treatment Colon cancer Anxiety Cancer HLD (hyperlipidemia) TAM (dyspnea on exertion) Surgical History History of section History of cholecystectomy Family History Other No significant family history Social History Smoking Status: Never smoker second hand exposure: No alcohol intake: never counseling provided: none substance use type: denies use current occupational status: employed Travel in the last 8 weeks: None household members: none housing: apartment lives independently: Yes marital status: single number of children: 1 number of grandchildren: 0 education level: high school current occupation: [employer] current occupational exposures/hazards: No caffeine: No working smoke detector in home: Yes fire extinguisher in home: No carbon monox detector in home: No firearms in home: No do you feel safe at home: Yes victim of physical abuse: No victim of emotional abuse: No victim of sexual abuse: No would you like helpful sources: No PM Subjective & Objective Subjective Subjective:: Patient is a pleasant 48-year-old female who presents today for follow-up of her lumbar epidural steroid injection L3-L4 on 11/02/2023. She states her pain today is a 3 out of 10 and she had at least 70% improvement following this injection and feels like it still helping. Patient does however state that she feels like she has more pain in and around her right hip and describes it as an aching, throbbing sensation and denies radiating symptoms into her legs. She does state that that pain will go up to a 5 out of 10. Patient does state the pain interferes with her ability perform activities of daily living. She does state that she is interested in injection therapy. Patient does typically get significant relief and overall improvement to her daily function with these injections. Patient is managed with raloxifene 60 mg daily for her osteoporosis from our office. She denies any side effects from this medication. At her last visit she was given a 4-month supply of this medication and does not need this till around January. Her Jason has been reviewed and is appropriate. Review of Systems: General: No recent weight changes, no fever, no sleep disturbances Respiratory: No cough, no shortness of air, no recurring pulmonary infections Cardiovascular/peripheral vascular: No chest pain, no palpitations, no edema, no shortness of breath Gastrointestinal: No new onset incontinence, normal bowel movements reported Genitourinary: No new onset incontinence Musculoskeletal: Low back pain, right hip pain Psychiatric: [Normal mood/affect] Neurological: [Denies weakness in extremities], [denies balance issues] Pain at rest (0-10 scale): 5 Objective Objective:: Physical Exam: General: Alert and oriented x3, no acute distress, pleasant and cooperative Lungs: Respirations even and unlabored, symmetrical chest expansion Eyes: PERRL Musculoskeletal: Flexion and extension of lumbar [spine] somewhat guarded secondary to pain, [antalgic gait noted] point tenderness along right SI with positive right Shailesh's, Zachary's, Gaenslen's, compression and distraction exam Neurological: Speech clear, no gross sensory deficit Has patient had previous pain injection?: Yes Percent improvement in pain since last injection: 70 Conservative treatment options previously tried: Home exercise plan Length of treatment: Longer than 6 weeks Meds Home Medications and Allergies Home Medications Medication Instructions Recorded Confirmed Type atorvastatin 10 mg tablet See Rx Instructions .Route 11/10/22 11/18/23 Rx .COMPLEX Cholesterol #90 tabs alendronate 70 mg tablet (Fosamax) 70 mg PO WEEKLY osteoperosis #13 02/01/23 11/18/23 Rx tabs medroxyprogesterone 150 mg/mL 150 mg IM [id number] #1 mL 08/13/23 11/18/23 Rx intramuscular suspension bupropion HCl 150 mg 24 hr tablet, See Rx Instructions .Route 09/23/23 11/18/23 Rx extended release .COMPLEX #90 tabs raloxifene 60 mg tablet 60 mg PO DAILY #30 tabs 10/11/23 11/18/23 Rx alprazolam 0.5 mg tablet 0.5 mg PO DAILY anxiety #30 tabs 10/19/23 11/18/23 Rx cariprazine 1.5 mg capsule 1.5 mg PO DAILY #30 caps 10/19/23 11/18/23 Rx (Vraylar) New Prescriptions to Start Prescriptions: Allergies Allergy/AdvReac Type Severity Reaction Status Date / Time No Known Allergies Allergy Verified 11/12/23 14:19 Assessment and Plan *Assessment and plan (1) Sacroiliitis: Status: Acute Category: Medical Code(s): M46.1 - Sacroiliitis, not elsewhere classified Plan Patient is experiencing worsening pain in her right hip with limited range of motion of her lumbar spine and point tenderness along her right SI with a positive right Shailesh's, Zachary's, Gaenslen's, compression and distraction exam. I have discussed with the patient that she may benefit from a right SI injection. Risk and benefits were discussed with the patient and she would like to proceed forward with this plan of care. Patient has continued at home stretching exercise between injections with minimal relief. We will schedule the patient for a right SI injection under fluoroscopy. Patient has been instructed to contact the clinic with any concerns before the next appointment. Dr. Flood has reviewed this note and agrees with this plan of care. This note was dictated using voice recognition software and make contain errors or omissions.
== END 2023-11-18 23:59 | disposition home or self-care (01) ==
LOC: SC.PAIN 14:45
PROVIDERS: PCP Nurse Practitioner Family; Visit Provider Nurse Practitioner Family
DX: M46.1 Sacroiliitis, not elsewhere classified (principal)
CPT/HCPCS: 99212; G0463

== ENCOUNTER 2023-12-07 12:45 | Day surgery (SDC) | payer OTHER, SELFPAY ==
[2023-12-07 13:10] VITALS: BP 118/79; PULSE 84; RESP 18; TEMP 36.7; O2SAT 100; BMI 30.2
[2023-12-07 13:20] VITALS: BP 131/83; PULSE 78; RESP 18; O2SAT 100
[2023-12-07] MEDS: methylPREDNISolone ACETATE 80MG/ML VIAL 80 MG (13:21)
[2023-12-07] MEDS: LIDOCAINE 1% 5ML PF VIAL 5 ML (13:23)
--- NOTE | 2023-12-07 13:23 | P.PCN_ITS ---
Procedure Date: 12/07/23 Time: 13:10 Anesthesiologist:: Bryan Borrego CRNA Complications:: None Pre-procedure Diagnosis:: Right sacroiliitis Post-procedure Diagnosis:: Same Indications for Procedure:: Patient is a pleasant 48-year-old female comes our clinic today for right sacroiliac joint injection of cortisone. Patient reports significant improvement terms of her overall right posterior hip pain as well as right low lumbar back pain with previous sacroiliac joint injection of cortisone. She rates her pain today 7/10. She describes the right posterior hip pain as constant, dull, aching. Pain intensifies with sitting and or ambulation. Procedure Details:: Procedure: Right sacroliliac joint injection under fluoroscopy Informed consent was obtained and the risk and benefits of the procedure were explained to the patient.~ The patient was taken to the procedure room and noninvasive monitors were placed including noninvasive blood pressure cuff and pulse oximeter.~ The patient was placed prone on the procedure table.~ The~ r ight hip was cleansed using Betadine as a cleansing solution.~ C-arm fluorosocpy was used to view the right SI joint.~ The skin and subcutaneous tissues were anesthetized using Lidocaine 1.5% and a 25-gauge needle.~ After this, a 22-gauge spinal needle was inserted under fluoroscopic guidance into the inferior aspect of the right SI joint.~ Omnipaque dye was injected and a good spread was seen throughout the joint.~ After this, approximately 5 mL of bupivacaine 0.25% and Depo-Medrol 40 mg was incrementally injected into the sacroiliac joint.~ The patient tolerated the procedure well with no complications.~ The patient was observed in the Pain Clinic, then discharged home neurologically intact.~ Plan and Disposition:: Patient was discharged without incident.
[2023-12-07 13:26] VITALS: BP 113/71; PULSE 91; RESP 18; O2SAT 100
[2023-12-07] MEDS: BUPIVACAINE 0.25% 10ML INJ 25 MG IJ (13:26)
[2023-12-07 13:31] VITALS: BP 113/71; PULSE 91; RESP 18; O2SAT 100
== END 2023-12-07 13:23 | disposition home or self-care (01) ==
PROVIDERS: PCP Nurse Practitioner Family; Visit Provider Nurse Anesthetist, Certified Registered
DX: M46.1 Sacroiliitis, not elsewhere classified (principal)
CPT/HCPCS: 27096; G0260; J1010

== ENCOUNTER 2023-12-23 14:21 | Outpatient (POV) | payer OTHER, SELFPAY ==
[2023-12-23 14:29] VITALS: BP 118/75; PULSE 89; RESP 18; O2SAT 98; BMI 30.7
--- NOTE | 2023-12-23 14:39 | EXP.PAIN.SOA ---
[facility] Disclaimer: The information contained in this section may have been updated after the patient was seen, as this information can be updated by other users. Medical History Recurrent major depression resistant to treatment Colon cancer Anxiety Cancer HLD (hyperlipidemia) TAM (dyspnea on exertion) Surgical History History of section History of cholecystectomy Family History Other No significant family history Social History Smoking Status: Never smoker second hand exposure: No alcohol intake: never counseling provided: none substance use type: denies use current occupational status: employed Travel in the last 8 weeks: None household members: none housing: apartment lives independently: Yes marital status: single number of children: 1 number of grandchildren: 0 education level: high school current occupation: [employer] current occupational exposures/hazards: No caffeine: No working smoke detector in home: Yes fire extinguisher in home: No carbon monox detector in home: No firearms in home: No do you feel safe at home: Yes victim of physical abuse: No victim of emotional abuse: No victim of sexual abuse: No would you like helpful sources: No PM Subjective & Objective Subjective Subjective:: Patient is a pleasant 48-year-old female who presents today for follow-up right SI injection on 12/07/2023. Today she rates her pain a 2 out of 10. She states she has had at least 80% improvement in this area following this procedure and feels like it is still working. She states that she is able to move around easier with overall decreased pain and feels more functional. Patient is currently managed with raloxifene 60 mg daily from our office for her osteoporosis and does not need refills until January. Patient denies any side effects from this medication. Her Jason has been reviewed and is appropriate. Review of Systems: General: No recent weight changes, no fever, no sleep disturbances Respiratory: No cough, no shortness of air, no recurring pulmonary infections Cardiovascular/peripheral vascular: No chest pain, no palpitations, no edema, no shortness of breath Gastrointestinal: No new onset incontinence, normal bowel movements reported Genitourinary: No new onset incontinence Musculoskeletal: Low back pain Psychiatric: [Normal mood/affect] Neurological: [Denies weakness in extremities], [denies balance issues] Pain at rest (0-10 scale): 2 Objective Objective:: Physical Exam: General: Alert and oriented x3, no acute distress, pleasant and cooperative Lungs: Respirations even and unlabored, symmetrical chest expansion Eyes: PERRL Musculoskeletal: Flexion and extension of lumbar [spine] somewhat guarded secondary to pain, [antalgic gait noted] Neurological: Speech clear, no gross sensory deficit Has patient had previous pain injection?: Yes Percent improvement in pain since last injection: 80% Conservative treatment options previously tried: Home exercise plan Length of treatment: Longer than 6 weeks Meds Home Medications and Allergies Home Medications ?Medication ?Instructions ?Recorded ?Confirmed ?Type atorvastatin 10 mg tablet See Rx Instructions .Route 11/10/22 12/23/23 Rx .COMPLEX Cholesterol #90 tabs medroxyprogesterone 150 mg/mL 150 mg IM [id number] #1 mL 08/13/23 12/23/23 Rx intramuscular suspension bupropion HCl 150 mg 24 hr tablet, See Rx Instructions .Route 09/23/23 12/23/23 Rx extended release .COMPLEX #90 tabs raloxifene 60 mg tablet 60 mg PO DAILY #30 tabs 10/11/23 12/23/23 Rx alprazolam 0.5 mg tablet 0.5 mg PO DAILY anxiety #30 tabs 12/14/23 12/23/23 Rx New Prescriptions to Start Prescriptions: Allergies Allergy/AdvReac Type Severity Reaction Status Date / Time No Known Allergies Allergy Verified 12/14/23 15:49 Assessment and Plan *Assessment and plan (1) Degenerative disc disease, lumbar: Status: Acute Category: Medical Code(s): M51.36 - Other intervertebral disc degeneration, lumbar region Plan Patient has had significant improvement following her right SI injection and does not require any additional injection therapy at this time. Patient did previously have a lumbar epidural of L3-L4 back in October that did provide 70% relief and states that that injection still seems to be working as well. We will follow-up with patient in 1 month for reevaluation of symptoms and plan of care. Patient has been instructed to contact the clinic with any concerns before the next appointment. Dr. Flood has reviewed this note and agrees with this plan of care. This note was dictated using voice recognition software and make contain errors or omissions. All injections are used with Lidocaine or Bupivacaine and Depo Medrol.
== END 2023-12-23 23:59 | disposition home or self-care (01) ==
LOC: SC.PAIN 14:22
PROVIDERS: PCP Nurse Practitioner Family; Visit Provider Nurse Practitioner Family
DX: M51.36 Other intervertebral disc degeneration, lumbar region (principal)
CPT/HCPCS: 99212; G0463

== ENCOUNTER 2024-01-10 14:03 | Emergency (ER) | payer OTHER, SELFPAY ==
[2024-01-10 14:05] VITALS: BP 151/90; PULSE 110; RESP 16; TEMP 36.6; O2SAT 100; BMI 30.2
--- NOTE | 2024-01-10 14:28 | ED_ITS ---
<Statement entered by Sean Cunningham MD - 01/13/24 22:14> I was consulted by the NORMAN, and we discussed the complexity of the problems being addressed. I approved the treatment and management plan for this patient's care in the emergency department, thus performing a substantive portion of the medical decision making. Sean Cunningham MD, JOSE, FACEP Discharge Plan Disposition Patient Disposition: Home, Self-Care Condition: Good Prescriptions Prescriptions: No Action atorvastatin 10 mg tablet See Rx Instructions .Route .COMPLEX Qty: 90 3RF Rx Instructions: TAKE ONE TABLET BY MOUTH ONCE A DAY alprazolam 0.5 mg tablet 0.5 mg PO DAILY Qty: 30 2RF medroxyprogesterone 150 mg/mL suspension 150 mg IM [id number] Qty: 1 3RF bupropion HCl 150 mg tablet extended release 24 hr See Rx Instructions .ROUTE .COMPLEX Qty: 90 2RF Dose Instruction: TAKE ONE TABLET BY MOUTH ONCE A DAY FOR DEPRESSION Rx Instructions: TAKE ONE TABLET BY MOUTH ONCE A DAY FOR DEPRESSION raloxifene 60 mg tablet 60 mg PO DAILY Qty: 30 3RF Referrals Follow up/Referrals: Amaya Ybarra APRN [Primary Care Provider] - See instructions Tristen Pillai DO [Staff Physician] - See instructions Clinical Impressions Clinical Impression: Arthralgia Qualifiers: Joint pain location: shoulder Laterality: left Qualified Code(s): M25.512 - Pain in left shoulder Stand Alone Forms Stand Alone Forms: Work/School Release Instructions Patient Instructions: DI for Shoulder Pain Print Language Print Language: Slovak Discharge ED Provider: Sean Cunningham General Adult HPI General Chief complaint: Extremity Injury, Upper Stated complaint: left arm pain Time Seen by Provider: 01/10/24 14:28 Mode of Arrival: Ambulatory Source of Information: Patient Limitations: No Limitations Description of Symptoms (Recalled from ER Triage Doc. by RN): Patient reports left bicep pain since she got her flu shot in Jun. States it has hurt on and off since then but then thinks that maybe she could have aggrevated it while moping. History of Present Illness HPI narrative: Patient presents for evaluation of left upper arm pain. Patient works in housekeeping and reports that she has had progressive proximal left upper extremity/shoulder pain. She denies any trauma or known injury. She is neurovascularly intact distally with full range of motion. Related Data Previous Rx's ?Medication ?Instructions ?Recorded atorvastatin 10 mg tablet See Rx Instructions .Route 11/10/22 .COMPLEX Cholesterol #90 tabs medroxyprogesterone 150 mg/mL 150 mg IM [id number] #1 mL 08/13/23 intramuscular suspension bupropion HCl 150 mg 24 hr tablet, See Rx Instructions .Route 09/23/23 extended release .COMPLEX #90 tabs raloxifene 60 mg tablet 60 mg PO DAILY #30 tabs 10/11/23 alprazolam 0.5 mg tablet 0.5 mg PO DAILY anxiety #30 tabs 12/14/23 Allergies Allergy/AdvReac Type Severity Reaction Status Date / Time No Known Allergies Allergy Verified 12/27/23 10:42 [facility] Disclaimer: The information contained in this section may have been updated after the patient was seen, as this information can be updated by other users. Medical History (Updated 01/10/24 @ 16:17 by VALDEMAR Goode) assisted use of drug Recurrent major depression resistant to treatment Colon cancer Anxiety Cancer HLD (hyperlipidemia) TAM (dyspnea on exertion) Surgical History History of section History of cholecystectomy Family History Other No significant family history Social History Smoking Status: Never smoker second hand exposure: No alcohol intake: never counseling provided: none substance use type: denies use current occupational status: employed Travel in the last 8 weeks: None household members: none housing: apartment lives independently: Yes marital status: single number of children: 1 number of grandchildren: 0 education level: high school current occupation: [employer] current occupational exposures/hazards: No caffeine: No working smoke detector in home: Yes fire extinguisher in home: No carbon monox detector in home: No firearms in home: No do you feel safe at home: Yes victim of physical abuse: No victim of emotional abuse: No victim of sexual abuse: No would you like helpful sources: No ROS Obtained: Yes Systems reviewed as appropriate & no additional complaints except as documented Physical Exam General General appearance: alert and in no apparent distress Respiratory Respiratory exam: Present normal lung sounds bilaterally Cardiovascular Cardiovascular exam: Present regular rate and normal rhythm Extremities Exam Extremities exam: Present full ROM Expanded Upper Extremity Exam Left: L/R Arms Top View: 2 1. Tenderness to palpation in the bicipital groove but no obvious bony deformity ecchymosis edema noted. Patient is neurovascular intact distally. Neurological Exam Neurological exam: Present alert and oriented X3 Medical Decision Making Jason Inquiry Pt receiving controlled substance: No Vital Signs: 01/10/24 14:05 01/10/24 14:30 01/10/24 15:00 Temperature 97.8 F Temperature Source Oral Pulse Rate 104 H 104 H Pulse Rate [Radial] 110 H Respiratory Rate 16 Blood Pressure 127/74 139/76 Blood Pressure [Right Arm] 151/90 H Blood Pressure Mean 102 Blood Pressure Mean [Right Arm] 110 Blood Pressure Source [Right Arm] Automatic Cuff Blood Pressure Position [Right Arm] Sitting 02 Sat by Pulse Oximetry 100 97 99 Oxygen Delivery Method Room Air Room Air Room Air Orders (Tests/Meds): ED MEDICATIONS Discontinued Medications Generic Name Dose Route Start Last Admin Trade Name Freq PRN Reason Stop Dose Admin Acetaminophen 1,000 mg 01/10/24 14:35 01/10/24 14:39 Acetaminophen 500mg Tab PO 01/10/24 14:36 1,000 mg ONCE ONE Administration Ibuprofen 800 mg 01/10/24 14:35 01/10/24 14:39 Ibuprofen 400 Mg Tablet PO 01/10/24 14:36 800 mg ONCE ONE Administration ORDERS Category Date Time Status Humerus XR left [XR humerus LT] Stat Exams 01/10/24 14:35 Completed Shoulder XR left minimum 2 views [XR shoulder LT min 2V Exams 01/10/24 14:34 Taken ] Stat Medical Decision Narrative: In summary patient is a 48-year-old female who presents to the emergency department for evaluation of proximal left upper extremity pain. Patient is hemodynamically stable upon arrival, afebrile. Physical exam is remarkable for tenderness to palpation in the soft tissue of the left upper extremity and tenderness in the bicipital groove but no ecchymosis edema erythema noted. Patient has full range of motion although abduction and internal/external rotation are tender under palpation. She has no tenderness at the AC joint. She is neurovascular intact distally.. Differential diagnosis includes arthritis versus bursitis versus tendinitis etc. Initial workup will be conducted with plain film x-rays. Initial interventions include Tylenol and ibuprofen. Initial workup reviewed by me and my informal interpretation of her plain film x-ray shows no acute processes. Upon repeat evaluation reported some improvement after initial intervention in her discomfort. Given this patient is appropriate for discharge with referral to orthopedics for further evaluation and care. Critical Care Critical Care Time Critical Care Time: No
[2024-01-10 14:30] VITALS: BP 127/74; PULSE 104; O2SAT 97
--- NOTE | 2024-01-10 14:34 | XR_ITS ---
FINAL REPORT CLINICAL HISTORY: Left arm pain COMPARISON: None FINDINGS: LEFT SHOULDER For views of the left shoulder were obtained. There is no acute fracture or dislocation. Old healed fracture deformity is noted of the distal clavicle with inferior bowing of the clavicle. There are moderate hypertrophic changes of the glenohumeral joint. There is small osteophytes seen along the inferior margin of the humeral head. Soft tissues are unremarkable. IMPRESSION: Hypertrophic/chronic changes without acute bony abnormality. Reviewed, Interpreted and Dictated by Campos Barrett MD Transcribed by Lo Aggarwal Authenticated and [facility]
--- NOTE | 2024-01-10 14:35 | XR_ITS ---
FINAL REPORT CLINICAL HISTORY: Left arm pain COMPARISON: None FINDINGS: Two views of the left humerus were obtained. There is no acute fracture or dislocation. There are hypertrophic changes of osteoarthritis of the glenohumeral joint. There is no acute soft tissue abnormality. IMPRESSION: Hypertrophic changes without acute abnormality identified. Reviewed, Interpreted and Dictated by Campos Barrett MD Transcribed by Lo Aggarwal Authenticated and [facility]
[2024-01-10] MEDS: ACETAMINOPHEN 500MG TAB 1000 MG PO (14:39)
[2024-01-10] MEDS: IBUPROFEN 400 MG TABLET 800 MG PO (14:39)
[2024-01-10 15:00] VITALS: BP 139/76; PULSE 104; O2SAT 99
[2024-01-10 16:18] VITALS: BP 135/88; PULSE 87; O2SAT 100
--- NOTE | 2024-01-10 16:21 | PC.NURSE ---
Rounded on pt. She advised her arm was feeling better at this time. Call light remains within reach.
[2024-01-10 16:43] VITALS: BP 144/89; PULSE 89; RESP 16; TEMP 36.4; O2SAT 100
== END 2024-01-10 16:47 | disposition home or self-care (01) ==
PROVIDERS: Emergency Provider Student in an Organized Health Care Education/Training Program; PCP Family Medicine
DX: M25.512 Pain in left shoulder (principal)
CPT/HCPCS: 73030; 73060; 99283

== ENCOUNTER 2024-03-07 13:56 | Day surgery (SDC) | payer OTHER, SELFPAY ==
[2024-03-07 14:12] VITALS: BP 115/77; PULSE 97; RESP 16; TEMP 36.7; O2SAT 98; BMI 30.2
[2024-03-07] MEDS: LIDOCAINE 1% 5ML PF VIAL 5 ML (14:33)
[2024-03-07] MEDS: methylPREDNISolone ACETATE 80MG/ML VIAL 80 MG (14:33)
[2024-03-07] MEDS: BUPIVACAINE 0.25% 10ML INJ 25 MG IJ (14:33)
[2024-03-07 14:39] VITALS: BP 117/73; PULSE 95; RESP 16; O2SAT 99
--- NOTE | 2024-03-07 14:52 | P.PCN_ITS ---
Procedure Date: 03/07/24 Time: 14:14 Anesthesiologist:: Bryan Borrego CRNA Complications:: None Pre-procedure Diagnosis:: Right sacroiliitis Post-procedure Diagnosis:: Same Indications for Procedure:: Patient is a very pleasant 49-year-old female comes our clinic today for right sacroiliac joint injection of cortisone and local anesthetic. Patient describes right low lumbar back pain off the midline as constant, dull, aching. Patient reports difficulty with ambulation. Difficulty transitioning from sitting to standing. She rates her pain 8/10. Patient reports having responded very well to right sacroiliac joint injections in the past. Procedure Details:: Procedure: Right sacroliliac joint injection under fluoroscopy Informed consent was obtained and the risk and benefits of the procedure were explained to the patient.~ The patient was taken to the procedure room and noninvasive monitors were placed including noninvasive blood pressure cuff and pulse oximeter.~ The patient was placed prone on the procedure table.~ The~ [facility] hip was cleansed using Betadine as a cleansing solution.~ C-arm fluorosocpy was used to view the right SI joint.~ The skin and subcutaneous tissues were anesthetized using Lidocaine 1.5% and a 25-gauge needle.~ After this, a 22-gauge spinal needle was inserted under fluoroscopic guidance into the inferior aspect of the right SI joint.~ Omnipaque dye was injected and a good spread was seen throughout the joint.~ After this, approximately 5 mL of bupivacaine 0.25% and Depo-Medrol 40 mg was incrementally injected into the sacroiliac joint.~ The patient tolerated the procedure well with no complications.~ The patient was observed in the Pain Clinic, then discharged home neurologically intact.~ Plan and Disposition:: Patient was discharged without incident.
== END 2024-03-07 14:39 | disposition home or self-care (01) ==
LOC: SC.PAINP 13:57
PROVIDERS: PCP Nurse Practitioner Family; Visit Provider Nurse Anesthetist, Certified Registered
DX: M46.1 Sacroiliitis, not elsewhere classified (principal)
CPT/HCPCS: 27096; G0260; J1010

== ENCOUNTER 2024-03-15 10:44 | Emergency (ER) | payer OTHER, SELFPAY ==
[2024-03-15 11:05] VITALS: BP 145/88; PULSE 81; RESP 20; TEMP 36.9; O2SAT 100; BMI 30.4
[2024-03-15 11:13] LABS: Microscopic, Urine URINE MICROSCOPIC (MICROSCOPIC)
--- NOTE | 2024-03-15 11:25 | ED_ITS ---
Discharge Plan Disposition Patient Disposition: Home, Self-Care Condition: Good Prescriptions Prescriptions: New cephalexin 500 mg tablet 500 mg PO BID 7 Days Qty: 14 0RF No Action medroxyprogesterone 150 mg/mL suspension 150 mg IM [id number] Qty: 1 3RF atorvastatin 10 mg tablet See Rx Instructions .ROUTE .COMPLEX Qty: 90 3RF Dose Instruction: TAKE ONE TABLET BY MOUTH ONCE A DAY Rx Instructions: TAKE ONE TABLET BY MOUTH ONCE A DAY cyclobenzaprine 5 mg tablet 5 mg PO HS PRN (Reason: muscle spasm) Qty: 30 0RF raloxifene 60 mg tablet 60 mg PO DAILY Qty: 30 5RF alprazolam 0.5 mg tablet 0.5 mg PO DAILY bupropion HCl 150 mg tablet extended release 24 hr 150 mg PO DAILY Referrals Follow up/Referrals: Reynaldo Saldivar APRN [Primary Care Provider] - See instructions Activity Restrictions/Add. Instructions Additional Instructions/Restrictions: Increase fluids, water and not soda or tea. Can drink cranberry juice or cranberry extract. Wipe front to back Wear cotton underwear Empty bladder after intercourse Start antibiotics immediately and make sure you take the full course although you may start to see improvement over the next 48 hours. You can eat yogurt or take probiotics to decrease diarrhea or yeast infection caused by the antibiotic Be sure to follow-up anytime for new or worsening symptoms in 48 hours for wound urine culture results be sure to let you PCP no recent urine for culture so they can request records and ensure that you have appropriate antibiotic if you are not getting better or getting worse. If symptoms worsen or do not improve return or be seen in the ER. Follow-up with primary care this week. Clinical Impressions Clinical Impression: UTI (urinary tract infection) Stand Alone Forms Stand Alone Forms: Work/School Release Instructions Patient Instructions: DI for Urinary Tract Infection (UTI) Print Language Print Language: Indian Discharge ED Provider: Dar ([facility])Alejandro [facility] [place] HPI General Stated complaint: R back side pain Mode of Arrival: Ambulatory Source of Information: Patient Limitations: No Limitations Time Seen by Provider: 03/15/24 11:18 Description of Symptoms (Recalled from Triage Doc. by RN): PATIENT C/O PAIN TO LOWER ABDOMEN AND RIGHT LOWER BACK/FLANK AREA THAT STARTED THIS MORNING, NO KNOWN INJURY HEENT Symptoms (Recalled from RN notes): No Resp Symptoms (Recalled from RN notes): No Skin Symptoms (Recalled from RN notes): No MS Symptoms (Recalled from RN notes): Yes Functional Status (Recalled from RN notes): WNL History of Present Illness Provider Complaint: 49-year-old female presents for complaints of right flank pain, right lower abdomen pain that started this morning. Patient states she does have some urinary frequency and urgency. Related Data Home Medications ?Medication ?Instructions ?Recorded ?Confirmed alprazolam 0.5 mg tablet 0.5 mg PO DAILY 01/22/24 03/07/24 bupropion HCl 150 mg 24 hr tablet, 150 mg PO DAILY 01/22/24 03/07/24 extended release Previous Rx's ?Medication ?Instructions ?Recorded medroxyprogesterone 150 mg/mL 150 mg IM [id number] #1 mL 08/13/23 intramuscular suspension cyclobenzaprine 5 mg tablet 5 mg PO HS PRN muscle spasm #30 02/02/24 tabs raloxifene 60 mg tablet 60 mg PO DAILY #30 tabs 03/06/24 atorvastatin 10 mg tablet See Rx Instructions .Route 03/07/24 .COMPLEX #90 tabs cephalexin 500 mg tablet 500 mg PO BID 7 days #14 tabs 03/15/24 Allergies Allergy/AdvReac Type Severity Reaction Status Date / Time No Known Allergies Allergy Verified 02/16/24 14:38 Worker's Comp Is this a Worker's Comp case?: [facility] Disclaimer: The information contained in this section may have been updated after the patient was seen, as this information can be updated by other users. Medical History (Reviewed 03/15/24 @ 11:26 by Alejandro Dodge ([facility]), ENERGY EFFICIENT SITE MANAGER) intermediate use of drug Recurrent major depression resistant to treatment Colon cancer Anxiety Cancer HLD (hyperlipidemia) TAM (dyspnea on exertion) Surgical History History of section History of cholecystectomy Family History (Reviewed 03/15/24 @ 11:26 by Alejandro Dodge ([facility]), ENERGY EFFICIENT SITE MANAGER) No significant family history Social History (Reviewed 03/15/24 @ 11:26 by Alejandro [facility] ENERGY EFFICIENT SITE MANAGER) Smoking Status: Never smoker second hand exposure: No alcohol intake: never counseling provided: none substance use type: denies use current occupational status: employed Travel in the last 8 weeks: None household members: none housing: apartment lives independently: Yes marital status: single number of children: 1 number of grandchildren: 0 education level: high school current occupation: [employer] current occupational exposures/hazards: No caffeine: No working smoke detector in home: Yes fire extinguisher in home: No carbon monox detector in home: No firearms in home: No do you feel safe at home: Yes victim of physical abuse: No victim of emotional abuse: No victim of sexual abuse: No would you like helpful sources: No ROS Obtained: Yes Systems reviewed as appropriate & no additional complaints except as documented Genitourinary Female Genitourinary: Reports system reviewed and no additional complaints, except as documented, Reports as per HPI, Reports flank pain, Reports urinary hesitancy and Reports urinary urgency Physical Exam General General appearance: alert and in no apparent distress Eye Eye exam: Present normal appearance and PERRL ENT ENT exam: Present normal exam Respiratory Respiratory exam: Present normal lung sounds bilaterally Cardiovascular Cardiovascular exam: Present regular rate and normal rhythm Abdominal Exam Abdominal exam: Present soft, tenderness and normal bowel sounds; Absent distention Back Exam Back exam: Present CVA tenderness (R) Back 1 view image: 2 1. Tender Neurological Exam Neurological exam: Present alert and oriented X3 Skin Skin exam: Present warm and intact Medical Decision Making Medical Records Medical records reviewed: Yes I reviewed the patient's medical records. Screening: Per USPSTF and CDC recommendations, given the prevalence of disease in our region, it is our hospital?s policy to screen for HIV and viral Hepatitis for all patients aged 18 and over and those with ongoing risk factors. Jason Inquiry Pt receiving controlled substance: No Jason was queried for this patient: No Vital Signs: 03/15/24 11:05 Temperature 98.4 F Temperature Source Oral Pulse Rate [Right Brachial] 81 Respiratory Rate 20 Blood Pressure [Right Arm] 145/88 H Blood Pressure Mean [Right Arm] 107 Blood Pressure Source [Right Arm] Automatic Cuff Blood Pressure Position [Right Arm] Sitting 02 Sat by Pulse Oximetry 100 Oxygen Delivery Method Room Air Lab Data Lab results reviewed: Yes I reviewed the patient's lab results. Orders (Tests/Meds): ORDERS Category Date Time Status UA [Urinalysis and Microscopic] Stat Lab 03/15/24 10:55 Received
[2024-03-15 11:45] LABS: Appearance,Urine CLEAR (Clear); Bilirubin,Urine Negative (Negative); Blood, Urine 1+ (Negative); Color,Urine YELLOW (Yellow); Glucose,Urine (UA) Negative (Negative); Ketones,Urine Negative (Negative); Leukocyte Esterase,Urine TRACE (Negative); Nitrate,Urine Negative (Negative); Protein,Urine Negative (Negative); Specific Gravity, Urine >= 1.030 (1.005-1.030); Urobilinogen,Urine 0.2 EU/dl (0.2)
[2024-03-15 12:00] VITALS: BP 145/88; PULSE 81; RESP 20; TEMP 36.9; O2SAT 100
[2024-03-15 12:05] LABS: Bacteria,Urine Trace /lpf; Mucus,Urine Trace /lpf
== END 2024-03-15 12:03 | disposition home or self-care (01) ==
PROVIDERS: Emergency Provider Nurse Practitioner Family; PCP Nurse Practitioner Family
DX: N39.0 Urinary tract infection, site not specified (principal)
CPT/HCPCS: 81001; 87086; 87088; 87186; 99213; G0381

== ENCOUNTER 2024-03-27 15:36 | Outpatient (POV) | payer OTHER, SELFPAY ==
[2024-03-27 15:48] VITALS: BP 106/72; PULSE 95; RESP 18; O2SAT 98; BMI 30.4
--- NOTE | 2024-03-27 15:51 | EXP.PAIN.SOA ---
[facility] Disclaimer: The information contained in this section may have been updated after the patient was seen, as this information can be updated by other users. 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 Recurrent major depression resistant to treatment Colon cancer Anxiety Cancer HLD (hyperlipidemia) TAM (dyspnea on exertion) Surgical History History of section History of cholecystectomy Family History Other No significant family history Social History Smoking Status: Never smoker second hand exposure: No alcohol intake: never counseling provided: none substance use type: denies use current occupational status: employed Travel in the last 8 weeks: None household members: none housing: apartment lives independently: Yes marital status: single number of children: 1 number of grandchildren: 0 education level: high school current occupation: [employer] current occupational exposures/hazards: No caffeine: No working smoke detector in home: Yes fire extinguisher in home: No carbon monox detector in home: No firearms in home: No do you feel safe at home: Yes victim of physical abuse: No victim of emotional abuse: No victim of sexual abuse: No would you like helpful sources: No PM Subjective & Objective Subjective Subjective:: Patient is a pleasant 49-year-old female who presents today for follow-up of right SI injection on 03/07/2024. Today she rates her pain at 3 out of 10. She states she has had at least 80% improvement and feels like it is still helping. Patient does state that she has been recently under the weather with a UTI and is on antibiotics currently. Patient denies any other changes. She does state today that she has noticed a little bit of worsening sensations along her left hip however right now it is still very manageable. At our last visit we did send in a 30-day supply of the Flexeril 5 mg at bedtime. She denies any side effects from this medication and states it does help. She does not need any refills at this time. Patient is also prescribed her osteoporosis medicine from us and does not need refills on this at that time. Her Jason has been reviewed and is appropriate Review of Systems: General: No recent weight changes, no fever, no sleep disturbances Respiratory: No cough, no shortness of air, no recurring pulmonary infections Cardiovascular/peripheral vascular: No chest pain, no palpitations, no edema, no shortness of breath Gastrointestinal: No new onset incontinence, normal bowel movements reported Genitourinary: No new onset incontinence Musculoskeletal: Left hip pain Psychiatric: [Normal mood/affect] Neurological: [Denies weakness in extremities], [denies balance issues] Pain at rest (0-10 scale): 3 Objective Objective:: Physical Exam: General: Alert and oriented x3, no acute distress, pleasant and cooperative Lungs: Respirations even and unlabored, symmetrical chest expansion Eyes: PERRL Musculoskeletal: Flexion and extension of lumbar spine within normal limits Neurological: Speech clear, no gross sensory deficit Has patient had previous pain injection?: Yes Percent improvement in pain since last injection: 80% Conservative treatment options previously tried: Home exercise plan Length of treatment: Longer than 12 weeks Meds Home Medications and Allergies Home Medications ?Medication ?Instructions ?Recorded ?Confirmed ?Type medroxyprogesterone 150 mg/mL 150 mg IM [id number] #1 mL 08/13/23 03/15/24 Rx intramuscular suspension bupropion HCl 150 mg 24 hr tablet, 150 mg PO DAILY 01/22/24 03/15/24 History extended release cyclobenzaprine 5 mg tablet 5 mg PO HS PRN muscle spasm #30 02/02/24 03/15/24 Rx tabs raloxifene 60 mg tablet 60 mg PO DAILY #30 tabs 03/06/24 03/15/24 Rx atorvastatin 10 mg tablet See Rx Instructions .Route 03/07/24 03/15/24 Rx .COMPLEX #90 tabs alprazolam 0.5 mg tablet 0.5 mg PO DAILY #30 tabs 03/15/24 03/15/24 Rx cephalexin 500 mg tablet 500 mg PO BID 7 days #14 tabs 03/15/24 03/15/24 Rx New Prescriptions to Start Prescriptions: Allergies Allergy/AdvReac Type Severity Reaction Status Date / Time No Known Allergies Allergy Verified 03/15/24 13:44 Assessment and Plan *Assessment and plan (1) Sacroiliitis: Status: Acute Category: Medical Code(s): M46.1 - Sacroiliitis, not elsewhere classified Plan Patient has had significant improvement following her SI injections and does not require any additional injection therapy at this time. Patient will return to clinic in 6 weeks for reevaluation of symptoms and plan of care. Patient has been instructed to contact the clinic with any concerns before the next appointment. Dr. Flood has reviewed this note and agrees with this plan of care. This note was dictated using voice recognition software and make contain errors or omissions. All injections are used with Lidocaine or Bupivacaine and Depo Medrol.
== END 2024-03-27 23:59 | disposition home or self-care (01) ==
LOC: SC.PAIN 15:36
PROVIDERS: PCP Nurse Practitioner Family; Visit Provider Nurse Practitioner Family
DX: M46.1 Sacroiliitis, not elsewhere classified (principal)
CPT/HCPCS: 99212; G0463

== ENCOUNTER 2024-05-06 11:36 | Emergency (ER) | payer OTHER, SELFPAY ==
[2024-05-06 12:53] VITALS: BP 168/99; PULSE 85; RESP 18; TEMP 36.7; O2SAT 100; BMI 30.2
[2024-05-06 12:56] LABS: Apearance,Urine Clear (Clear); Color,Urine Yellow (Yellow)
[2024-05-06 12:57] LABS: Bilirubin,Urine Negative (Negative); Blood, Urine Trace (Negative); Glucose,Urine (UA) Negative (Negative); Ketones,Urine Negative (Negative); Protein,Urine Negative (Negative); UTC Leukocyte Esterase,Urine Trace (Negative); Urobilinogen,Urine 0.2 EU/dl (0.2)
[2024-05-06 12:58] LABS: UTC Nitrate,Urine Negative (Negative)
--- NOTE | 2024-05-06 13:00 | EXP.UTC ---
Discharge Plan Disposition Patient Disposition: Home, Self-Care Condition: Good Prescriptions Prescriptions: New cefdinir 300 mg capsule 300 mg PO BID Qty: 20 0RF No Action alprazolam 0.5 mg tablet 0.5 mg PO DAILY Qty: 30 3RF medroxyprogesterone 150 mg/mL suspension 150 mg IM [id number] Qty: 1 3RF atorvastatin 10 mg tablet See Rx Instructions .ROUTE .COMPLEX Qty: 90 3RF Dose Instruction: TAKE ONE TABLET BY MOUTH ONCE A DAY Rx Instructions: TAKE ONE TABLET BY MOUTH ONCE A DAY cyclobenzaprine 5 mg tablet 5 mg PO HS PRN (Reason: muscle spasm) Qty: 30 0RF raloxifene 60 mg tablet 60 mg PO DAILY Qty: 30 5RF bupropion HCl 150 mg tablet extended release 24 hr 150 mg PO DAILY Referrals Follow up/Referrals: Reynaldo Saldivar APRN [Primary Care Provider] - See instructions Activity Restrictions/Add. Instructions Additional Instructions/Restrictions: Drink plenty of fluids. Take tylenol or ibuprofen for pain or fever. Take the medications as directed. Follow up with your regular doctor. GO TO THE ER FOR ANY WORSENING SYMPTOMS We will culture the urine. That will tell what bacteria is causing your infection and which antibiotics will treat it best.This test takes 3 days to complete. Clinical Impressions Clinical Impression: UTI (urinary tract infection) Stand Alone Forms Stand Alone Forms: Work/School Release Instructions Patient Instructions: Urinary Tract Infection, Urine Culture, DI for Urinary Tract Infection (UTI), Cefdinir Print Language Print Language: Spanish Discharge ED Provider: David Augustine [facility] General Stated complaint: check covid test, past UTI Mode of Arrival: Ambulatory Source of Information: Patient Time Seen by Provider: 05/06/24 13:00 Description of Symptoms (Recalled from Triage Doc. by RN): UTI S/S, THOMASON HEENT Symptoms (Recalled from RN notes): No Resp Symptoms (Recalled from RN notes): No Skin Symptoms (Recalled from RN notes): No MS Symptoms (Recalled from RN notes): No Functional Status (Recalled from RN notes): WNL Related Data Home Medications ?Medication ?Instructions ?Recorded ?Confirmed bupropion HCl 150 mg 24 hr tablet, 150 mg PO DAILY 01/22/24 05/06/24 extended release Previous Rx's ?Medication ?Instructions ?Recorded medroxyprogesterone 150 mg/mL 150 mg IM [id number] #1 mL 08/13/23 intramuscular suspension cyclobenzaprine 5 mg tablet 5 mg PO HS PRN muscle spasm #30 02/02/24 tabs raloxifene 60 mg tablet 60 mg PO DAILY #30 tabs 03/06/24 atorvastatin 10 mg tablet See Rx Instructions .Route 03/07/24 .COMPLEX #90 tabs alprazolam 0.5 mg tablet 0.5 mg PO DAILY #30 tabs 03/15/24 cefdinir 300 mg capsule 300 mg PO BID #20 caps 05/06/24 Allergies Allergy/AdvReac Type Severity Reaction Status Date / Time No Known Allergies Allergy Verified 05/05/24 11:25 Worker's Comp Is this a Worker's Comp case?: No [facility] Disclaimer: The information contained in this section may have been updated after the patient was seen, as this information can be updated by other users. 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 Recurrent major depression resistant to treatment Colon cancer Anxiety Cancer HLD (hyperlipidemia) TAM (dyspnea on exertion) Surgical History History of section History of cholecystectomy Family History Other No significant family history Social History Smoking Status: Never smoker second hand exposure: No alcohol intake: never counseling provided: none substance use type: denies use current occupational status: employed Travel in the last 8 weeks: Inside the [place] household members: none housing: apartment lives independently: Yes marital status: single number of children: 1 number of grandchildren: 0 education level: high school current occupation: [employer] current occupational exposures/hazards: No caffeine: No working smoke detector in home: Yes fire extinguisher in home: No carbon monox detector in home: No firearms in home: No do you feel safe at home: Yes victim of physical abuse: No victim of emotional abuse: No victim of sexual abuse: No would you like helpful sources: No Have you lived/traveled outside [place] in past 30 days?: No Contact w/someone who lives/traveled outside [place] past 30 days?: No Exposure to someone with infectious disease in past 14 days?: No Do you have a fever (greater than 100.4 F or 38 C)?: No Have you tested positive for COVID-19: No Exposed to someone with COVID-19 in past 14 days?: No Do you have a sore throat?: No Do you have a cough?: No Do you have any weakness?: No Do you have any diarrhea?: No Are you experiencing any unusual bleeding?: No Do you have any muscle aches/pain?: No Do you have any abdominal pain?: No Are you experiencing loss of taste or smell?: No ROS Obtained: Yes All systems reviewed & no additional complaints except as documented Constitutional Constitutional: Reports system reviewed and no additional complaints, except as documented, Denies chills and Denies fever(s) Eyes Eyes: Denies eye discharge ENT Ears, Nose, Mouth, and Throat: Denies dysphagia, Denies sore throat and Denies throat swelling Cardiovascular Cardiovascular: Denies chest pain and Denies dyspnea Respiratory Respiratory: Denies chest congestion, Denies cough and Denies dyspnea Gastrointestinal Gastrointestingal: Denies abdominal pain, constipation, diarrhea, dysphagia, nausea or vomiting Genitourinary Female Genitourinary: Reports as per HPI, Reports dysuria, Reports urinary frequency, Denies urinary incontinence, Reports urinary hesitancy and Reports urinary urgency Musculoskeletal Musculoskeletal: Denies arthralgias and Reports back pain Integumentary/Breasts Skin/Breast: Denies rash Neurologic Neurologic: Denies paresthesias Allergic/Immunologic Allergic/Immunologic: Denies throat swelling Physical Exam General General appearance: alert and in no apparent distress Head Head exam: atraumatic and normocephalic Eye Eye exam: Present normal appearance, PERRL and EOMI ENT ENT exam: Present normal exam, mucous membranes moist, TM's normal bilaterally and normal external ear exam Neck Neck exam: Present normal inspection, full ROM and trachea midline; Absent tenderness, meningismus or lymphadenopathy Chest Chest inspection: Present normal inspection and symmetric chest wall rise; Absent tenderness Respiratory Respiratory exam: Present normal lung sounds bilaterally; Absent respiratory distress, wheezes or stridor Cardiovascular Cardiovascular exam: Present regular rate, normal rhythm and normal heart sounds Abdominal Exam Abdominal exam: Present soft and normal bowel sounds; Absent distention, tenderness, guarding, rebound, rigidity, incision, psoas sign, obturator sign, heel tap sign, Lazaro's sign, Rovsing's sign or tenderness at McBurney's Point Extremities Exam Extremities exam: Present normal inspection, full ROM and normal capillary refill; Absent tenderness, edema, joint swelling, calf tenderness or cyanosis Back Exam Back exam: Present normal inspection and full ROM; Absent tenderness, CVA tenderness (R) or CVA tenderness (L) Neurological Exam Neurological exam: Present alert, oriented X3 and normal gait Psychiatric Psychiatric exam: Present normal affect and normal mood Skin Skin exam: Present warm, dry, intact and normal color Lymphatic Lymphatic Findings: no adenopathy Medical Decision Making Medical Records Medical records reviewed: No I reviewed the patient's medical records. Screening: Per USPSTF and CDC recommendations, given the prevalence of disease in our region, it is our hospital?s policy to screen for HIV and viral Hepatitis for all patients aged 18 and over and those with ongoing risk factors. Jason Inquiry Pt receiving controlled substance: No Vital Signs: 05/06/24 12:53 Temperature 98.0 F Temperature Source Oral Pulse Rate [Left Radial] 85 Respiratory Rate 18 Blood Pressure [Left Arm] 168/99 H Blood Pressure Mean [Left Arm] 122 02 Sat by Pulse Oximetry 100 Lab Data Lab results reviewed: Yes I reviewed the patient's lab results. Lab Results 05/06/24 12:56: Urine Color Yellow, Urine Appearance Clear, Urine pH 6.0, Ur Specific [place] 1.030, Urine Protein Negative, Urine Glucose (UA) Negative, Urine Ketones Negative, Urine Blood Trace, Urine Nitrate Negative, Urine Bilirubin Negative, Urine Urobilinogen 0.2, Ur Leukocyte Esterase Trace
[2024-05-06 13:29] VITALS: BP 168/99; PULSE 85; RESP 18; TEMP 36.7
--- NOTE | 2024-05-09 11:29 | PC.NURSE ---
REVIEWED URINE CULTURE WITH Carie WELSH APRN, NO CHANGES NEEDED AT THIS TIME
== END 2024-05-06 13:30 | disposition home or self-care (01) ==
PROVIDERS: Emergency Provider Nurse Practitioner Family; PCP Nurse Practitioner Family
DX: N39.0 Urinary tract infection, site not specified (principal)
CPT/HCPCS: 81003; 87086; 87088; 87186; 99213; G0381

== ENCOUNTER 2024-05-08 08:46 | Outpatient (POV) | payer OTHER, SELFPAY ==
--- NOTE | 2024-05-08 09:02 | A.OFFVIS_ITS ---
[facility] Disclaimer: The information contained in this section may have been updated after the patient was seen, as this information can be updated by other users. 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 Recurrent major depression resistant to treatment Colon cancer Anxiety Cancer HLD (hyperlipidemia) TAM (dyspnea on exertion) Surgical History History of section History of cholecystectomy Family History Other No significant family history Social History Smoking Status: Never smoker second hand exposure: No alcohol intake: never counseling provided: none substance use type: denies use current occupational status: employed Travel in the last 8 weeks: Inside the [place] household members: none housing: apartment lives independently: Yes marital status: single number of children: 1 number of grandchildren: 0 education level: high school current occupation: [employer] current occupational exposures/hazards: No caffeine: No working smoke detector in home: Yes fire extinguisher in home: No carbon monox detector in home: No firearms in home: No do you feel safe at home: Yes victim of physical abuse: No victim of emotional abuse: No victim of sexual abuse: No would you like helpful sources: No PM Subjective & Objective Subjective Subjective:: Patient is a pleasant 49-year-old female who presents today for follow-up.she her pain currently 0 however states that she has not gotten up and started moving around. Patient denies any new injury or trauma. She states that her right hip has still done wonderful from her right SI injection on 03/07/2024. She does however state that the pain she is currently experiencing is only on the left side. Patient does describe it as an aching, throbbing sensation that is worse with prolonged positioning such as sitting standing or walking. Patient states that it is just around the left hip and that it does really interfere with her ability to perform activities of daily living such as cooking and cleaning. Patient states when she gets up and moving and he is even at work the pain goes to at least a 7 out of 10 or more. Patient does state that she would like to see about having an injection on this side since the right did several great with more than 80% relief and has maintained over the last 2 months so far. Patient does state that she still been having some issues with UTIs. She is prescribed Flexeril 5 mg at bedtime and raloxifene 60 mg daily for her osteoporosis from our office. She denies any side effects from these medications and does not need refills.Her Jason has been reviewed and is appropriate Review of Systems: General: No recent weight changes, no fever, no sleep disturbances Respiratory: No cough, no shortness of air, no recurring pulmonary infections Cardiovascular/peripheral vascular: No chest pain, no palpitations, no edema, no shortness of breath Gastrointestinal: No new onset incontinence, normal bowel movements reported Genitourinary: No new onset incontinence Musculoskeletal: Left hip pain Psychiatric: [Normal mood/affect] Neurological: [Denies weakness in extremities], [denies balance issues] Pain at rest (0-10 scale): 7 Objective Objective:: Physical Exam: General: Alert and oriented x3, no acute distress, pleasant and cooperative Lungs: Respirations even and unlabored, symmetrical chest expansion Eyes: PERRL Musculoskeletal: Flexion and extension of lumbar [spine] somewhat guarded secondary to pain, [antalgic gait noted] point tenderness along left SI with positive left Shailesh's, Zachary's, Gaenslen's, compression and distraction exam Neurological: Speech clear, no gross sensory deficit Has patient had previous pain injection?: No Conservative treatment options previously tried: Home exercise plan Length of treatment: Longer than 12 weeks Meds Home Medications and Allergies Home Medications ?Medication ?Instructions ?Recorded ?Confirmed ?Type medroxyprogesterone 150 mg/mL 150 mg IM [id number] #1 mL 08/13/23 05/05/24 Rx intramuscular suspension bupropion HCl 150 mg 24 hr tablet, 150 mg PO DAILY 01/22/24 05/06/24 History extended release cyclobenzaprine 5 mg tablet 5 mg PO HS PRN muscle spasm #30 02/02/24 05/05/24 Rx tabs raloxifene 60 mg tablet 60 mg PO DAILY #30 tabs 03/06/24 05/06/24 Rx atorvastatin 10 mg tablet See Rx Instructions .Route 03/07/24 05/05/24 Rx .COMPLEX #90 tabs alprazolam 0.5 mg tablet 0.5 mg PO DAILY #30 tabs 03/15/24 05/06/24 Rx cefdinir 300 mg capsule 300 mg PO BID #20 caps 05/06/24 Rx New Prescriptions to Start Prescriptions: Allergies Allergy/AdvReac Type Severity Reaction Status Date / Time No Known Allergies Allergy Verified 05/05/24 11:25 Assessment and Plan *Assessment and plan (1) Sacroiliitis: Status: Acute Category: Medical Code(s): M46.1 - Sacroiliitis, not elsewhere classified Plan Patient does have a longstanding history of sacroiliitis that has been going on for more than 6 months however has frequent flareups from time to time. Patient did previously have a right SI injection back in February that did provide 80% relief and has continued to help with improved function over the last 2 months. Today she is experiencing worsening pain along her left hip with limited range of motion and point tenderness along her left SI with a positive left Shailesh's, Zachary's, Gaenslen's, compression and distraction exam. I did discuss with the patient that I do believe she would benefit from a left SI injection. Risk and benefits were discussed with the patient and she would like to proceed forward with this plan of care. Patient has continued conservative treatment including oral medication, heat and ice, topicals, at home stretching exercise for longer than 12 weeks between injections. We will schedule her for a left SI injection under fluoroscopy. Patient has been instructed to contact the clinic with any concerns before the next appointment. Dr. Flood has reviewed this note and agrees with this plan of care. This note was dictated using voice recognition software and make contain errors or omissions. All injections are used with Lidocaine, Bupivacaine and Depo Medrol. Occasionally urine drug screen is needed to verify patient's compliance with our office pain contract. This is ordered based off specific treatments related to chronic pain with the potential to abuse certain medications.
[2024-05-08 10:20] VITALS: BP 121/63; PULSE 89; RESP 14; O2SAT 99; BMI 30.2
== END 2024-05-08 23:59 | disposition home or self-care (01) ==
LOC: SC.PAIN 08:47
PROVIDERS: PCP Nurse Practitioner Family; Visit Provider Nurse Practitioner Family
DX: M46.1 Sacroiliitis, not elsewhere classified (principal); Z73.89 Other problems related to life management difficulty
CPT/HCPCS: 99212; G0463

== ENCOUNTER 2024-05-09 14:03 | Emergency (ER) | payer OTHER, SELFPAY ==
[2024-05-09 14:07] VITALS: BP 120/82; PULSE 116; O2SAT 99
[2024-05-09 14:10] VITALS: BP 120/82; PULSE 114; RESP 18; TEMP 36.6; O2SAT 99; BMI 30.2
[2024-05-09 14:30] VITALS: BP 111/72; PULSE 100; O2SAT 98
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
[2024-05-09] MEDS: METHOCARBAMOL 500MG TABLET 500 MG PO (14:58)
[2024-05-09] MEDS: DEXAMETHASONE 4MG/ML 5ML MDV 10 MG IM (14:59)
[2024-05-09] MEDS: LIDOCAINE 5% TRANSDERMAL PATCH 1 EACH TP (14:59)
[2024-05-09] MEDS: ACETAMINOPHEN 500MG TAB 1000 MG PO (14:59)
[2024-05-09 15:00] VITALS: BP 115/75; PULSE 95; O2SAT 98
[2024-05-09 15:30] VITALS: BP 122/79; PULSE 95; O2SAT 100
[2024-05-09 16:03] VITALS: BP 114/71; PULSE 88; RESP 18; TEMP 37.3
== END 2024-05-09 16:07 | disposition home or self-care (01) ==
PROVIDERS: Emergency Provider Emergency Medicine; PCP Nurse Practitioner Family
DX: M25.512 Pain in left shoulder (principal); M54.50 Low back pain, unspecified
CPT/HCPCS: 96372; 99283; J1100

== ENCOUNTER 2024-06-13 13:01 | Day surgery (SDC) | payer OTHER, SELFPAY ==
[2024-06-13 13:20] VITALS: BP 118/69; PULSE 94; RESP 18; TEMP 36.8; O2SAT 100; BMI 30.2
[2024-06-13 13:26] VITALS: BP 119/80; PULSE 98; RESP 18; O2SAT 100
[2024-06-13] MEDS: LIDOCAINE 1% 5ML PF VIAL 5 ML (13:27)
--- NOTE | 2024-06-13 13:29 | EXP.PAIN.PRO ---
Procedure Date: 06/13/24 Time: 13:15 Anesthesiologist:: Bryan Borrego CRNA Complications:: None Pre-procedure Diagnosis:: Left sacroiliitis Post-procedure Diagnosis:: Same Indications for Procedure:: Patient is a pleasant 49-year-old female comes our clinic today for left sacroiliac joint injection of cortisone and local anesthetic. Patient describes low lumbar back pain off the midline to the left. Left posterior hip pain. Difficulty transitioning from sitting to standing. Difficulty with standing and/or ambulating due to intense left posterior hip pain. She rates her pain 8/10. Procedure Details:: Procedure: Left sacroiliac injection under fluoroscopy Informed consent was obtained and the risk and benefits of the procedure were explained to the patient.~ The patient was taken to the procedure room and noninvasive monitors were placed including noninvasive blood pressure cuff and pulse oximeter.~ The patient was placed prone on the procedure table.~ The~ left hip was cleansed using Betadine as a cleansing solution.~ C-arm fluorosocpy was used to view the left SI joint.~ The skin and subcutaneous tissues were anesthetized using Lidocaine 1.5% and a 25-gauge needle.~ After this, a 22-gauge spinal needle was inserted under fluoroscopic guidance into the inferior aspect of the left SI joint.~ Omnipaque dye was injected and a good spread was seen throughout the joint.~ After this, approximately 5 mL of bupivacaine 0.25% and Depo-Medrol 40 mg was incrementally injected into the sacroiliac joint.~ The patient tolerated the procedure well with no complications.~ The patient was observed in the Pain Clinic for a period of 30-45 minutes, then discharged home neurologically intact.~ Plan and Disposition:: Patient was discharged without incident.
[2024-06-13 13:31] VITALS: BP 119/79; PULSE 66; RESP 18; O2SAT 98
== END 2024-06-13 13:31 | disposition home or self-care (01) ==
PROVIDERS: PCP Nurse Practitioner Family; Visit Provider Nurse Anesthetist, Certified Registered
DX: M46.1 Sacroiliitis, not elsewhere classified (principal)
CPT/HCPCS: 27096; G0260

== ENCOUNTER 2024-06-28 15:19 | Outpatient (POV) | payer OTHER, SELFPAY ==
[2024-06-28 15:29] VITALS: BP 123/63; PULSE 88; RESP 14; O2SAT 98; BMI 29.5
--- NOTE | 2024-06-28 15:37 | A.OFFVIS_ITS ---
[facility] Disclaimer: The information contained in this section may have been updated after the patient was seen, as this information can be updated by other users. Medical History long term use of drug Recurrent major depression resistant to treatment Colon cancer Anxiety Cancer HLD (hyperlipidemia) TAM (dyspnea on exertion) Surgical History History of section History of cholecystectomy Family History Other No significant family history Social History Smoking Status: Former smoker second hand exposure: No alcohol intake: never counseling provided: none substance use type: denies use current occupational status: other Travel in the last 8 weeks: None household members: none housing: apartment lives independently: Yes marital status: single number of children: 1 number of grandchildren: 0 education level: high school current occupation: [employer] current occupational exposures/hazards: No caffeine: No working smoke detector in home: Yes fire extinguisher in home: No carbon monox detector in home: No firearms in home: No do you feel safe at home: Yes victim of physical abuse: No victim of emotional abuse: No victim of sexual abuse: No would you like helpful sources: No PM Subjective & Objective Subjective Subjective:: Patient is a pleasant 49-year-old female who presents today for follow-up of left SI injection on 06/13/2024. She does write improvement of 80% however does state that she is having worsening pain now on the right side. She does write this a 4 or 5 out of 10 and states that it is fairly constant with prolonged positioning. She states that it is that same pain she has experienced in the past and would like to get scheduled for an injection to help ease this down. Patient states the pain is interfering with her ability perform activities of daily living such as cooking and cleaning. Patient is currently managed with Flexeril 5 mg at bedtime and Raloxifene 60 mg daily for osteoporosis from our office. She denies any side effects and states she does not need refills. Her Jason has been reviewed and is appropriate. Review of Systems: General: No recent weight changes, no fever, no sleep disturbances Respiratory: No cough, no shortness of air, no recurring pulmonary infections Cardiovascular/peripheral vascular: No chest pain, no palpitations, no edema, no shortness of breath Gastrointestinal: No new onset incontinence, normal bowel movements reported Genitourinary: No new onset incontinence Musculoskeletal: Right-sided low back pain, right hip pain Psychiatric: [Normal mood/affect] Neurological: [Denies weakness in extremities], [denies balance issues] Pain at rest (0-10 scale): 5 Objective Objective:: Physical Exam: General: Alert and oriented x3, no acute distress, pleasant and cooperative Lungs: Respirations even and unlabored, symmetrical chest expansion Eyes: PERRL Musculoskeletal: Flexion and extension of lumbar [spine] somewhat guarded secondary to pain, [antalgic gait noted] point tenderness along right SI with p ositive right Shailesh's, Zachary's, Gaenslen's, compression and distraction exam Neurological: Speech clear, no gross sensory deficit Has patient had previous pain injection?: Yes Percent improvement in pain since last injection: 80% Conservative treatment options previously tried: Home exercise plan Length of treatment: Longer than 12 weeks Meds Home Medications and Allergies Home Medications ?Medication ?Instructions ?Recorded ?Confirmed ?Type medroxyprogesterone 150 mg/mL 150 mg IM [id number] #1 mL 08/13/23 06/28/24 Rx intramuscular suspension cyclobenzaprine 5 mg tablet 5 mg PO HS PRN muscle spasm #30 02/02/24 06/28/24 Rx tabs raloxifene 60 mg tablet 60 mg PO DAILY #30 tabs 03/06/24 06/28/24 Rx atorvastatin 10 mg tablet See Rx Instructions .Route 03/07/24 06/28/24 Rx .COMPLEX #90 tabs alprazolam 0.5 mg tablet 0.5 mg PO DAILY #30 tabs 03/15/24 06/28/24 Rx cefdinir 300 mg capsule 300 mg PO BID #20 caps 05/06/24 06/28/24 Rx lidocaine 5 % topical patch 1 patch topical DAILY #30 ea 05/09/24 06/28/24 Rx methocarbamol 750 mg tablet 750 mg PO Q6H PRN muscle spasm #20 05/09/24 06/28/24 Rx tabs prednisone 50 mg tablet 50 mg PO DAILY 5 days #5 tabs 05/09/24 06/28/24 Rx bupropion HCl 150 mg 24 hr tablet, 150 mg PO DAILY #90 tabs 06/20/24 06/28/24 Rx extended release New Prescriptions to Start Prescriptions: Allergies Allergy/AdvReac Type Severity Reaction Status Date / Time No Known Allergies Allergy Verified 05/05/24 11:25 Assessment and Plan *Assessment and plan (1) Sacroiliitis: Status: Acute Category: Medical Code(s): M46.1 - Sacroiliitis, not elsewhere classified Plan Patient has had significant improvement following her left SI injection however is having worsening pain on the right side. Patient did have limited range of motion of her lumbar spine with point tenderness along her right SI and positive right Shailesh's, Zachary's, Gaenslen's, compression and distraction exam. I did review over risk and benefits of repeat right SI injection and she would like to proceed forward with this plan of care. Patient has tried and failed conservative therapy including continued at home stretching exercise for longer than 12 weeks between injections with no additional improvement. Patient did have her last right SI injection in February that did provide 80% improvement and has lasted up until last week. Patient will be scheduled for a right SI injection under fluoroscopy. Patient has been instructed to contact the clinic with any concerns before the next appointment. Dr. Flood has reviewed this note and agrees with this plan of care. This note was dictated using voice recognition software and make contain errors or omissions. All injections are used with Lidocaine, Bupivacaine and Depo Medrol. Occasionally urine drug screen is needed to verify patient's compliance with our office pain contract. This is ordered based off specific treatments related to chronic pain with the potential to abuse certain medications.
== END 2024-06-28 23:59 | disposition home or self-care (01) ==
LOC: SC.PAIN 15:19
PROVIDERS: PCP Nurse Practitioner Family; Visit Provider Nurse Practitioner Family
DX: M46.1 Sacroiliitis, not elsewhere classified (principal); Z87.891 Personal history of nicotine dependence; Z73.89 Other problems related to life management difficulty
CPT/HCPCS: 99212; G0463

== ENCOUNTER 2024-07-11 15:55 | Outpatient (CLI) | payer OTHER, SELFPAY ==
[2024-07-11 16:24] LABS: Basophils % 0.7 % (0.1-2.0); Eosinophils # 0.1 K/mm3 (0.0-0.4); Eosinophils % 1.5 % (0.1-12.0); Hematocrit 40.2 % (37.0-47.0); Hemoglobin 13.5 g/dL (12.2-16.2); Lymphocytes # 1.2 K/mm3 (0.7-4.5); Lymphocytes % 19.9 % (10-50); Mean Corpuscular HGB Conc 33.6 g/dL (31.8-35.4); Mean Corpuscular Hemoglobin 31.6 pg (27.0-31.2); Mean Corpuscular Volume 94.1 fl (81-99); Mean Platelet Volume 10.1 fl (7.4-10.4); Monocytes # 0.5 K/mm3 (0.1-1.0); Neutrophils # 4.1 K/mm3 (1.8-7.8); Neutrophils % 69.7 % (37.0-80.0); Platelet Count 276 K/mm3 (142-424); Red Blood Count 4.27 M/mm3 (4.20-5.40); Red Cell Distribution Width 12.3 % (11.5-17.5); White Blood Count 5.8 K/mm3 (4.8-10.8)
[2024-07-11 16:52] LABS: Albumin Level 4.3 g/dl (3.5-5.0); Chloride 108 mmol/L (98-107); Sodium 141 mmol/L (136-145)
[2024-07-11 16:54] LABS: Blood Urea Nitrogen 16 mg/dl (7-17); Estimated Glomerular Filt Rate 67 ml/min (>60); GFR (African American) 81 ML/MIN (>60)
[2024-07-11 16:55] LABS: Alanine Aminotransferase 27 U/L (12-78); Albumin/Globulin Ratio 1.7 (1.1-1.8); Alkaline Phosphatase 67 U/L (38-126); Aspartate Amino Transferase 31 U/L (14-36); Bilirubin,Total 0.2 mg/dl (0.2-1.3); Calcium 9.4 mg/dl (8.4-10.2); Carbon Dioxide 27 mmol/L (22.0-30.0); Chol/HDL Ratio 3.5 (1-3.5); Cholesterol 186 mg/dl (140-200); Globulin 2.5 g/dL (1.3-3.2); Glucose 92 mg/dl (74-100); HDL Cholesterol 53 mg/dl (40-60); Total Protein,Serum 6.8 g/dl (6.3-8.2); Triglycerides 65 mg/dl (30-150); VLDL Cholesterol 13 mg/dL (0-40)
[2024-07-11 17:06] LABS: Direct LDL Cholesterol 109.85 mg/dL (100-129)
[2024-07-11 17:13] LABS: Free T4 (Free Thyroxine) 0.77 ng/dl (0.78-2.19)
[2024-07-11 17:26] LABS: Thyroid Stimulating Hormone 4.23 uIU/mL (0.465-4.68)
[2024-07-11 17:28] LABS: Hemoglobin A1C 5.3 % (4.0-6.0)
[2024-07-11 18:58] LABS: 25-OH Vitamin D, Total < 12.8 ng/mL (30-100)
== END 2024-07-11 23:59 | disposition home or self-care (01) ==
LOC: LAB 15:56
PROVIDERS: PCP Nurse Practitioner Family; Visit Provider Nurse Practitioner Family
DX: R55 Syncope and collapse (principal); E78.5 Hyperlipidemia, unspecified; E03.9 Hypothyroidism, unspecified; E66.09 Other obesity due to excess calories; Z68.30 Body mass index [BMI] 30.0-30.9, adult
CPT/HCPCS: 36415; 80053; 80061; 82306; 83036; 84439; 84443; 85025

== ENCOUNTER 2024-07-18 13:51 | Day surgery (SDC) | payer OTHER, SELFPAY ==
[2024-07-18 13:50] VITALS: BP 115/70; PULSE 65; RESP 16; TEMP 36.6; O2SAT 100; BMI 29.9
[2024-07-18 13:54] VITALS: BP 126/72; PULSE 102; PULSE 96; RESP 18; O2SAT 100; O2SAT 99
[2024-07-18] MEDS: BUPIVACAINE 0.25% 10ML INJ 25 MG IJ (13:55)
[2024-07-18] MEDS: LIDOCAINE 1% 5ML PF VIAL 5 ML (13:55)
[2024-07-18] MEDS: methylPREDNISolone ACETATE 80MG/ML VIAL 80 MG (13:55)
[2024-07-18 14:10] VITALS: BP 115/70; PULSE 89; RESP 16; O2SAT 99
--- NOTE | 2024-07-18 14:18 | EXP.PAIN.PRO ---
Procedure Date: 07/18/24 Time: 13:45 Anesthesiologist:: Bryan Borrego CRNA Complications:: None Pre-procedure Diagnosis:: Right sacroiliitis Post-procedure Diagnosis:: Same Indications for Procedure:: Is a very pleasant 49-year-old female comes our clinic today for right sacroiliac joint injection cortisone and local anesthetic. Patient describes right low lumbar back pain off the midline. Right posterior hip pain. Difficulty transitioning from sitting to standing. Difficulty with ambulation. She rates her pain 7/10. Procedure Details:: Procedure: Right sacroliliac joint injection under fluoroscopy Informed consent was obtained and the risk and benefits of the procedure were explained to the patient.~ The patient was taken to the procedure room and noninvasive monitors were placed including noninvasive blood pressure cuff and pulse oximeter.~ The patient was placed prone on the procedure table.~ The~ right hip was cleansed using Betadine as a cleansing solution.~ C-arm fluorosocpy was used to view the right SI joint.~ The skin and subcutaneous tissues were anesthetized using Lidocaine 1.5% and a 25-gauge needle.~ After this, a 22-gauge spinal needle was inserted under fluoroscopic guidance into the inferior aspect of the right SI joint.~ Omnipaque dye was injected and a good spread was seen throughout the joint.~ After this, approximately 5 mL of bupivacaine 0.25% and Depo-Medrol 40 mg was incrementally injected into the sacroiliac joint.~ The patient tolerated the procedure well with no complications.~ The patient was observed in the Pain Clinic, then discharged home neurologically intact.~ Plan and Disposition:: Patient was discharged without incident.
== END 2024-07-18 14:10 | disposition home or self-care (01) ==
LOC: SC.PAINP 13:52
PROVIDERS: PCP Nurse Practitioner Family; Visit Provider Nurse Anesthetist, Certified Registered
DX: M46.1 Sacroiliitis, not elsewhere classified (principal)
CPT/HCPCS: 27096; G0260; J1010

== ENCOUNTER 2024-08-04 14:29 | Outpatient (POV) | payer OTHER, SELFPAY ==
--- NOTE | 2024-08-04 14:33 | EXP.PAIN.SOA ---
[facility] Disclaimer: The information contained in this section may have been updated after the patient was seen, as this information can be updated by other users. 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 Recurrent major depression resistant to treatment Colon cancer Anxiety Cancer HLD (hyperlipidemia) TAM (dyspnea on exertion) Surgical History (Updated 08/04/24 @ 13:22 by GEORGINA [place]) History of heart surgery History of back surgery History of section History of cholecystectomy Family History Other No significant family history Social History Smoking Status: Former smoker second hand exposure: No alcohol intake: never counseling provided: none substance use type: denies use current occupational status: other Travel in the last 8 weeks: None household members: none housing: apartment lives independently: Yes marital status: single number of children: 1 number of grandchildren: 0 education level: high school current occupation: [employer] current occupational exposures/hazards: No caffeine: No working smoke detector in home: Yes fire extinguisher in home: No carbon monox detector in home: No firearms in home: No do you feel safe at home: Yes victim of physical abuse: No victim of emotional abuse: No victim of sexual abuse: No would you like helpful sources: No PM Subjective & Objective Subjective Subjective:: Patient is a pleasant 49-year-old female who presents today for follow-up of right SI injections on 07/18/2024. Today she rates her pain a 4 out of 10. She denies any new injuries or falls from her last appointment. She does state that she did get approximately 90% improvement. She states overall she is doing much better. She does state that the left side she has noticed a little increased however it is still manageable. Patient had the left SI injection back in May that did provide 80% relief. Patient is managed with Flexeril 5 mg at bedtime and Raloxifene 60 mg daily for osteoporosis. Patient denies any side effects from these medications. Patient does state that she has gone over to [facility] and that they are talking about doing a uterine ablation for her continued bleeding and that they do believe that her continuously being on the Depo-Medrol injection for longer than 10 years has played a role in her osteoporosis. Patient does not have a specific date yet for this procedure. Her Jason has been reviewed and is appropriate. Review of Systems: General: No recent weight changes, no fever, no sleep disturbances Respiratory: No cough, no shortness of air, no recurring pulmonary infections Cardiovascular/peripheral vascular: No chest pain, no palpitations, no edema, no shortness of breath Gastrointestinal: No new onset incontinence, normal bowel movements reported Genitourinary: No new onset incontinence Musculoskeletal: Low back pain Psychiatric: [Normal mood/affect] Neurological: [Denies weakness in extremities], [denies balance issues] Pain at rest (0-10 scale): 4 Objective Objective:: Physical Exam: General: Alert and oriented x3, no acute distress, pleasant and cooperative Lungs: Respirations even and unlabored, symmetrical chest expansion Eyes: PERRL Musculoskeletal: Flexion and extension of lumbar [spine] somewhat guarded secondary to pain, [antalgic gait noted] Neurological: Speech clear, no gross sensory deficit Has patient had previous pain injection?: Yes Percent improvement in pain since last injection: 90% Conservative treatment options previously tried: Home exercise plan Length of treatment: Longer than 12 weeks Meds Home Medications and Allergies Home Medications ?Medication ?Instructions ?Recorded ?Confirmed ?Type raloxifene 60 mg tablet 60 mg PO DAILY #30 tabs 03/06/24 08/04/24 Rx atorvastatin 10 mg tablet See Rx Instructions .Route 03/07/24 08/04/24 Rx .COMPLEX #90 tabs lidocaine 5 % topical patch 1 patch topical DAILY #30 ea 05/09/24 08/04/24 Rx methocarbamol 750 mg tablet 750 mg PO Q6H PRN muscle spasm #20 05/09/24 08/04/24 Rx tabs bupropion HCl 150 mg 24 hr tablet, 150 mg PO DAILY #90 tabs 06/20/24 08/04/24 Rx extended release cholecalciferol (vitamin D3) 1,250 1,250 mcg PO QWEEK #7 caps 07/15/24 08/04/24 Rx mcg (50,000 unit) capsule cholecalciferol (vitamin D3) 50 50 mcg PO DAILY #30 caps 07/15/24 08/04/24 Rx mcg (2,000 unit) capsule alprazolam 0.5 mg tablet 0.5 mg PO DAILY #30 tabs 07/25/24 08/04/24 Rx ketoconazole 2 % topical cream 1 applic topical BID #30 grams 07/25/24 08/04/24 Rx medroxyprogesterone 150 mg/mL 150 mg IM [id number] #1 mL 08/04/24 08/04/24 Rx intramuscular suspension New Prescriptions to Start Prescriptions: Allergies Allergy/AdvReac Type Severity Reaction Status Date / Time No Known Allergies Allergy Unverified 08/04/24 13:10 Assessment and Plan *Assessment and plan (1) Sacroiliitis: Status: Acute Category: Medical Code(s): M46.1 - Sacroiliitis, not elsewhere classified (2) Degenerative disc disease, lumbar: Status: Acute Category: Medical Code(s): M51.369 - Other intervertebral disc degeneration, lumbar region without mention of lumbar back pain or lower extremity pain Plan Patient has had significant improvement and does not require any additional injection therapy at this time. Patient will be refilled on her Flexeril and her osteoporosis medication. Patient will return to clinic in 1 month. Patient has been instructed to contact the clinic with any concerns before the next appointment. Dr. Flood has reviewed this note and agrees with this plan of care. This note was dictated using voice recognition software and make contain errors or omissions. All injections are used with Lidocaine, Bupivacaine and Depo Medrol. Occasionally urine drug screen is needed to verify patient's compliance with our office pain contract. This is ordered based off specific treatments related to chronic pain with the potential to abuse certain medications.
[2024-08-04 14:56] VITALS: BP 113/87; PULSE 102; RESP 16; O2SAT 98; BMI 29.9
== END 2024-08-04 23:59 | disposition home or self-care (01) ==
PROVIDERS: PCP Nurse Practitioner Family; Visit Provider Nurse Practitioner Family
DX: M46.1 Sacroiliitis, not elsewhere classified (principal); M51.369 Other intervertebral disc degeneration, lumbar region without mention of lumbar back pain or lower extremity pain
CPT/HCPCS: 99212; G0463

== ENCOUNTER 2024-09-04 14:42 | Outpatient (POV) | payer OTHER, SELFPAY ==
--- NOTE | 2024-09-04 15:19 | EXP.PAIN.SOA ---
[facility] Disclaimer: The information contained in this section may have been updated after the patient was seen, as this information can be updated by other users. 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 Recurrent major depression resistant to treatment Colon cancer Anxiety Cancer HLD (hyperlipidemia) TAM (dyspnea on exertion) Surgical History History of heart surgery History of back surgery History of section History of cholecystectomy Family History Other No significant family history Social History Smoking Status: Former smoker second hand exposure: No alcohol intake: never counseling provided: none substance use type: denies use current occupational status: other Travel in the last 8 weeks: None household members: none housing: apartment lives independently: Yes marital status: single number of children: 1 number of grandchildren: 0 education level: high school current occupation: [employer] current occupational exposures/hazards: No caffeine: No working smoke detector in home: Yes fire extinguisher in home: No carbon monox detector in home: No firearms in home: No do you feel safe at home: Yes victim of physical abuse: No victim of emotional abuse: No victim of sexual abuse: No would you like helpful sources: No PM Subjective & Objective Subjective Subjective:: Patient is a pleasant 49-year-old female who presents today for follow-up. Today she rates her pain a 6 out of 10. Patient denies any new trauma or injury. She does state overall she is doing still pretty well. Patient is currently managed with Flexeril 5 mg at bedtime and raloxifene 60 mg daily for osteoporosis. She denies any side effects. Patient does state that she does not need any additional refills as we did just put in her prescription medications at one of her last visit with additional refills. Patient does have additional questions regarding additional pharmacologist for possible IUDs or uterine ablation. Her Jason has been reviewed and is appropriate. Review of Systems: General: No recent weight changes, no fever, no sleep disturbances Respiratory: No cough, no shortness of air, no recurring pulmonary infections Cardiovascular/peripheral vascular: No chest pain, no palpitations, no edema, no shortness of breath Gastrointestinal: No new onset incontinence, normal bowel movements reported Genitourinary: No new onset incontinence Musculoskeletal: Low back pain Psychiatric: [Normal mood/affect] Neurological: [Denies weakness in extremities], [denies balance issues] Pain at rest (0-10 scale): 6 Objective Objective:: Physical Exam: General: Alert and oriented x3, no acute distress, pleasant and cooperative Lungs: Respirations even and unlabored, symmetrical chest expansion Eyes: PERRL Musculoskeletal: Flexion and extension of lumbar [spine] somewhat guarded secondary to pain, [antalgic gait noted] Neurological: Speech clear, no gross sensory deficit Has patient had previous pain injection?: No Conservative treatment options previously tried: Home exercise plan Length of treatment: Longer than 12 weeks Meds Home Medications and Allergies Home Medications ?Medication ?Instructions ?Recorded ?Confirmed ?Type atorvastatin 10 mg tablet See Rx Instructions .Route 03/07/24 08/04/24 Rx .COMPLEX #90 tabs lidocaine 5 % topical patch 1 patch topical DAILY #30 ea 05/09/24 08/04/24 Rx methocarbamol 750 mg tablet 750 mg PO Q6H PRN muscle spasm #20 05/09/24 08/04/24 Rx tabs bupropion HCl 150 mg 24 hr tablet, 150 mg PO DAILY #90 tabs 06/20/24 08/04/24 Rx extended release cholecalciferol (vitamin D3) 1,250 1,250 mcg PO QWEEK #7 caps 07/15/24 08/04/24 Rx mcg (50,000 unit) capsule cholecalciferol (vitamin D3) 50 50 mcg PO DAILY #30 caps 07/15/24 08/04/24 Rx mcg (2,000 unit) capsule alprazolam 0.5 mg tablet 0.5 mg PO DAILY #30 tabs 07/25/24 08/04/24 Rx ketoconazole 2 % topical cream 1 applic topical BID #30 grams 07/25/24 08/04/24 Rx medroxyprogesterone 150 mg/mL 150 mg IM [id number] #1 mL 08/04/24 08/04/24 Rx intramuscular suspension raloxifene 60 mg tablet 60 mg PO DAILY #30 tabs 08/04/24 Rx New Prescriptions to Start Prescriptions: Allergies Allergy/AdvReac Type Severity Reaction Status Date / Time No Known Allergies Allergy Unverified 08/04/24 13:10 Assessment and Plan *Assessment and plan (1) Sacroiliitis: Status: Acute Category: Medical Code(s): M46.1 - Sacroiliitis, not elsewhere classified Plan I did discuss with the patient regarding IUDs or uterine ablation due to her continued problems bleeding. Patient did state that she currently sees Dr. Aggarwal however from our last conversation about the uterine ablation possibly in office with certain providers she would like additional information regarding this. Patient states that she has never been given any information regarding Dr. Aggarwal's office doing this procedure or Dr. Santos. Patient does have a previous history of cancer and states that her current doctor that she sees with this is talking about retiring and did want to make sure that she was with a provider that would closely monitor her progression. I did give her Dr. Heredia's Yordan name there at [place] who does or at least had done the uterine ablations in the office with anesthesia that does come in and give of IV sedation. Patient will return to clinic at the end of this month for additional evaluation of her chronic low back pain. Patient agrees with this plan of care. Patient has been instructed to contact the clinic with any concerns before the next appointment. Dr. Flood has reviewed this note and agrees with this plan of care. This note was dictated using voice recognition software and make contain errors or omissions. All injections are used with Lidocaine, Bupivacaine and Depo Medrol. Occasionally urine drug screen is needed to verify patient's compliance with our office pain contract. This is ordered based off specific treatments related to chronic pain with the potential to abuse certain medications.
[2024-09-04 15:56] VITALS: BP 96/70; PULSE 100; RESP 18; O2SAT 97; BMI 29.7
== END 2024-09-04 23:59 | disposition home or self-care (01) ==
LOC: SC.PAIN 14:43
PROVIDERS: PCP Nurse Practitioner Family; Visit Provider Nurse Practitioner Family
DX: M46.1 Sacroiliitis, not elsewhere classified (principal); Z87.891 Personal history of nicotine dependence
CPT/HCPCS: 99212; G0463

== ENCOUNTER 2024-09-21 15:04 | Outpatient (POV) | payer OTHER, SELFPAY ==
[2024-09-21 15:40] VITALS: BP 114/61; PULSE 100; RESP 14; O2SAT 96; BMI 29.7
--- NOTE | 2024-09-21 15:47 | A.OFFVIS_ITS ---
[facility] Disclaimer: The information contained in this section may have been updated after the patient was seen, as this information can be updated by other users. 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 Recurrent major depression resistant to treatment Colon cancer Anxiety Cancer HLD (hyperlipidemia) TAM (dyspnea on exertion) Surgical History History of heart surgery History of back surgery History of section History of cholecystectomy Family History Other No significant family history Social History Smoking Status: Former smoker second hand exposure: No alcohol intake: never counseling provided: none substance use type: denies use current occupational status: other Travel in the last 8 weeks?: None household members: none housing: apartment lives independently: Yes marital status: single number of children: 1 number of grandchildren: 0 education level: high school current occupation: [employer] current occupational exposures/hazards: No caffeine: No working smoke detector in home: Yes fire extinguisher in home: No carbon monox detector in home: No firearms in home: No do you feel safe at home: Yes victim of physical abuse: No victim of emotional abuse: No victim of sexual abuse: No would you like helpful sources: No PM Subjective & Objective Subjective Subjective:: Patient is a pleasant 49-year-old female who presents today for follow-up. Patient is experiencing worsening pain all across to her low back and bilateral hips. Patient does state it is primarily the left side that is worse however she does also have it in the right. Patient denies any new falls. Patient does state that it does seem to be the same pain she has been experiencing that she has been getting injections for. Patient does get significant relief with these injections and would like to go ahead and get on our schedule to repeat those prior injections. Patient does state the pain is interfering with her ability perform activities of daily living such as cooking and cleaning. Patient is currently managed with Flexeril 5 mg at bedtime and osteoporosis medication 60 mg daily. Patient denies any side effects and does not need refills at this time. Her Jason has been reviewed and is appropriate. Review of Systems: General: No recent weight changes, no fever, no sleep disturbances Respiratory: No cough, no shortness of air, no recurring pulmonary infections Cardiovascular/peripheral vascular: No chest pain, no palpitations, no edema, no shortness of breath Gastrointestinal: No new onset incontinence, normal bowel movements reported Genitourinary: No new onset incontinence Musculoskeletal: Low back pain, bilateral hip pain Psychiatric: [Normal mood/affect] Neurological: [Denies weakness in extremities], [denies balance issues] Pain at rest (0-10 scale): 5 Objective Objective:: Physical Exam: General: Alert and oriented x3, no acute distress, pleasant and cooperative Lungs: Respirations even and unlabored, symmetrical chest expansion Eyes: PERRL Musculoskeletal: Flexion and extension of lumbar [spine] somewhat guarded secondary to pain, [antalgic gait noted] point tenderness along bilateral SIs with positive bilateral Shailesh's, Zachary's, Gaenslen's, compression and distraction exam Neurological: Speech clear, no gross sensory deficit Has patient had previous pain injection?: No Conservative treatment options previously tried: Home exercise plan Length of treatment: Longer than 12 weeks Meds Home Medications and Allergies Home Medications ?Medication ?Instructions ?Recorded ?Confirmed ?Type atorvastatin 10 mg tablet See Rx Instructions .Route 03/07/24 09/21/24 Rx .COMPLEX #90 tabs lidocaine 5 % topical patch 1 patch topical DAILY #30 ea 05/09/24 09/21/24 Rx methocarbamol 750 mg tablet 750 mg PO Q6H PRN muscle spasm #20 05/09/24 09/21/24 Rx tabs bupropion HCl 150 mg 24 hr tablet, 150 mg PO DAILY #90 tabs 06/20/24 09/21/24 Rx extended release cholecalciferol (vitamin D3) 1,250 1,250 mcg PO QWEEK #7 caps 07/15/24 09/21/24 Rx mcg (50,000 unit) capsule cholecalciferol (vitamin D3) 50 50 mcg PO DAILY #30 caps 07/15/24 09/21/24 Rx mcg (2,000 unit) capsule alprazolam 0.5 mg tablet 0.5 mg PO DAILY #30 tabs 07/25/24 09/21/24 Rx ketoconazole 2 % topical cream 1 applic topical BID #30 grams 07/25/24 09/21/24 Rx medroxyprogesterone 150 mg/mL 150 mg IM [id number] #1 mL 08/04/24 09/21/24 Rx intramuscular suspension raloxifene 60 mg tablet 60 mg PO DAILY #30 tabs 08/04/24 09/21/24 Rx New Prescriptions to Start Prescriptions: Allergies Allergy/AdvReac Type Severity Reaction Status Date / Time No Known Allergies Allergy Unverified 08/04/24 13:10 Assessment and Plan *Assessment and plan (1) Sacroiliitis: Status: Acute Category: Medical Code(s): M46.1 - Sacroiliitis, not elsewhere classified Plan Patient is experiencing worsening pain along the low back and bilateral hips. They did have limited range of motion of the lumbar spine along with point tenderness along bilateral SI joints and a positive bilateral Shailesh's, Zachary's, Gaenslen's, compression and distraction exam. I did discuss with the patient that I do believe they would benefit from bilateral SI injections. Risk and benefits were discussed with the patient and they would like to proceed forward with this option. Patient has tried and failed conservative therapy including continued at home stretching exercise for longer than 12 weeks. Patient has had chronic sacroiliitis for longer than 6 months and does get significant relief with these injections. Her last injections were in June and did provide 80% relief and have lasted overall up until the last week or so. This will be a therapeutic injection with less than 1 mL of solution to be injected. Patient is not a candidate for the SI fusion due to her history of osteoporosis. Patient will be scheduled for bilateral SI injections under fluoroscopy. Patient has been instructed to contact the clinic with any concerns before the next appointment. Dr. Flood has reviewed this note and agrees with this plan of care. This note was dictated using voice recognition software and make contain errors or omissions. All injections are used with Lidocaine or Bupivacaine and dexamethasone.
== END 2024-09-21 23:59 | disposition home or self-care (01) ==
LOC: SC.PAIN 15:04
PROVIDERS: PCP Nurse Practitioner Family; Visit Provider Nurse Practitioner Family
DX: M46.1 Sacroiliitis, not elsewhere classified (principal); Z87.891 Personal history of nicotine dependence; Z73.89 Other problems related to life management difficulty
CPT/HCPCS: 99212; G0463

== ENCOUNTER 2024-10-25 14:13 | Outpatient (POV) | payer OTHER, SELFPAY ==
--- NOTE | 2024-10-25 14:54 | EXP.PAIN.SOA ---
[facility] Disclaimer: The information contained in this section may have been updated after the patient was seen, as this information can be updated by other users. Medical History exterminator use of drug Recurrent major depression resistant to treatment Colon cancer Anxiety Cancer HLD (hyperlipidemia) TAM (dyspnea on exertion) Surgical History History of heart surgery History of back surgery History of section History of cholecystectomy Family History Other No significant family history Social History Smoking Status: Former smoker second hand exposure: No alcohol intake: never counseling provided: none substance use type: denies use current occupational status: other Travel in the last 8 weeks?: None household members: none housing: apartment lives independently: Yes marital status: single number of children: 1 number of grandchildren: 0 education level: high school current occupation: [employer] current occupational exposures/hazards: No caffeine: No working smoke detector in home: Yes fire extinguisher in home: No carbon monox detector in home: No firearms in home: No do you feel safe at home: Yes victim of physical abuse: No victim of emotional abuse: No victim of sexual abuse: No would you like helpful sources: No PM Subjective & Objective Subjective Subjective:: Patient is a pleasant 49-year-old female who presents today for insurance denial of SI injections. Today she rates her pain a 5 out of 10. She denies any new trauma or injury. She does state that she still having the same pain there and across her low back and hips. Patient does state that she did end up calling Dr. Farr office regarding the ablation and they would not be able to get her in until January. Patient does state that she is going to try here locally and see what they can do once she comes back from vacation in November. Patient is currently managed with Flexeril 5 mg at bedtime and methocarbamol 750 mg during the day as needed along with raloxifene 60 mg daily for osteoporosis from our office. She denies any side effects. Her Jason has been reviewed and is appropriate. Review of Systems: General: No recent weight changes, no fever, no sleep disturbances Respiratory: No cough, no shortness of air, no recurring pulmonary infections Cardiovascular/peripheral vascular: No chest pain, no palpitations, no edema, no shortness of breath Gastrointestinal: No new onset incontinence, normal bowel movements reported Genitourinary: No new onset incontinence Musculoskeletal: Low back pain Psychiatric: [Normal mood/affect] Neurological: [Denies weakness in extremities], [denies balance issues] Pain at rest (0-10 scale): 5 Objective Objective:: Physical Exam: General: Alert and oriented x3, no acute distress, pleasant and cooperative Lungs: Respirations even and unlabored, symmetrical chest expansion Eyes: PERRL Musculoskeletal: Flexion and extension of lumbar [spine] somewhat guarded secondary to pain, [antalgic gait noted] Neurological: Speech clear, no gross sensory deficit Has patient had previous pain injection?: No Conservative treatment options previously tried: Home exercise plan Length of treatment: Longer than 12 weeks Meds Home Medications and Allergies Home Medications ?Medication ?Instructions ?Recorded ?Confirmed ?Type atorvastatin 10 mg tablet See Rx Instructions .Route 03/07/24 09/21/24 Rx .COMPLEX #90 tabs lidocaine 5 % topical patch 1 patch topical DAILY #30 ea 05/09/24 09/21/24 Rx methocarbamol 750 mg tablet 750 mg PO Q6H PRN muscle spasm #20 05/09/24 09/21/24 Rx tabs bupropion HCl 150 mg 24 hr tablet, 150 mg PO DAILY #90 tabs 06/20/24 09/21/24 Rx extended release cholecalciferol (vitamin D3) 1,250 1,250 mcg PO QWEEK #7 caps 07/15/24 09/21/24 Rx mcg (50,000 unit) capsule cholecalciferol (vitamin D3) 50 50 mcg PO DAILY #30 caps 07/15/24 09/21/24 Rx mcg (2,000 unit) capsule ketoconazole 2 % topical cream 1 applic topical BID #30 grams 07/25/24 09/21/24 Rx medroxyprogesterone 150 mg/mL 150 mg IM [id number] #1 mL 08/04/24 09/21/24 Rx intramuscular suspension raloxifene 60 mg tablet 60 mg PO DAILY #30 tabs 08/04/24 09/21/24 Rx alprazolam 0.5 mg tablet 0.5 mg PO DAILY #30 tabs 10/10/24 Rx New Prescriptions to Start Prescriptions: Allergies Allergy/AdvReac Type Severity Reaction Status Date / Time No Known Allergies Allergy Unverified 08/04/24 13:10 Assessment and Plan *Assessment and plan (1) Sacroiliitis: Status: Acute Category: Medical Code(s): M46.1 - Sacroiliitis, not elsewhere classified Plan I did discuss with the patient regarding the denial stating that she had had the extent of the SI injections she could have within a year's timeframe. We did discuss that once the timeframe has passed that we can always try and resubmit if she is still having this chronic pain. We will follow-up with her in 6 weeks for reevaluation of symptoms and plan of care. Patient has been instructed to contact the clinic with any concerns before the next appointment. Dr. Flood has reviewed this note and agrees with this plan of care. This note was dictated using voice recognition software and make contain errors or omissions. All injections are used with Lidocaine, Bupivacaine and dexamethasone. Occasionally urine drug screen is needed to verify patient's compliance with our office pain contract. This is ordered based off specific treatments related to chronic pain with the potential to abuse certain medications.
[2024-10-25 14:59] VITALS: BP 104/69; PULSE 98; RESP 14; O2SAT 98; BMI 29.7
== END 2024-10-25 23:59 | disposition home or self-care (01) ==
LOC: SC.PAIN 14:14
PROVIDERS: PCP Nurse Practitioner Family; Visit Provider Nurse Practitioner Family
DX: M46.1 Sacroiliitis, not elsewhere classified (principal); Z79.899 Other long term (current) drug therapy; Z98.890 Other specified postprocedural states
CPT/HCPCS: 99212; G0463

== ENCOUNTER 2024-10-26 17:25 | Outpatient (CLI) | payer OTHER, SELFPAY ==
--- OUTSIDE RECORDS SUMMARY | 2024-10-27 12:33 | XMS_ITS | Clinical Summary ---
Author Organization Healthcare Address [address] [place] [address] Care Team Providers Care Boiler Plant Operator Name Role Phone Campos Obregon MD Unavailable [phone] Pcp, No Primary Care Provider Unavailabl e Allergies No known active allergies Medications ALPRAZolam (Xanax) 0.5 MG tablet 03/08/20 20 Active atorvastatin (Lipitor) 10 MG tablet 1 tab(s) orally once a day Active buPROPion XL (Wellbutrin XL) 150 MG 24 hr tablet 10/29/19 21 Active medroxyPROGEST ERone (Depo-Provera) 150 MG/ML injection INJECT 1ML INTRAMUSCULARLY ONCE EVERY 3 MONTHS DIRECTED 10/29/19 21 Active raloxifene (Evista) 60 MG tablet 1 tablet (60 mg). 06/02/19 24 Active cyclobenzaprin e (Flexeril) 5 MG tablet 02/02/20 24 Active Encounters Date Type Department Care Team Description 08/15/2024 9:45 AM EDT Office Visit [facility] [address] [place] [address] Campos Obregon MD Rectal cancer (CMS/HCC) (Primary Dx) 08/15/2024 6:45 AM EDT - 08/15/2024 11:59 PM EDT Hospital Encounter [facility] [address] [place] [address] Rectal cancer (CMS/HCC) Discharge Disposition: Home or Self Care 08/15/2024 Orders Only [facility] [address] [place] [id number] Campos Obregon MD Rectal cancer (CMS/HCC) (Primary Dx) 08/15/2024 Orders Only [facility] [address] [place] [address] Campos Obregon MD Rectal cancer (CMS/HCC) (Primary Dx) 08/15/2024 Travel from Last 3 Months Family History Medical History Relation Name Comments Lung cancer Father Family history of lung cancer Liver cancer Other 1 Family history of liver cancer Lung cancer Other 2 Family history of lung cancer Relation Name Status Comments Father Other 1 Other 2 Social History Tobacco Use Types Packs/Day Years Used Date Smoking Tobacco: Never Smokeless Tobacco: Never Tobacco Cessation:Counseling Given: Not Answered Alcohol Use Standard Drinks/Week Comments Never 0 (1 standard drink = 0.6 oz pur e alcohol) PHQ-2 Answer Date Recorded Patient Health Questionnaire-2 Score 0 08/15/2024 Comments No Sex and Gender Information Value Date Recorded Sex Assigned at Not on file Legal Sex Female 7:49 PM EDT Gender Identity Not on file Sexual Orientation Not on file Last Filed Vital Signs Vital Sign Reading Time Taken Comments Blood Pressure 116/83 08/15/2024 9:32 AM EDT Pulse 92 08/15/2024 9:32 AM EDT Temperature 36.9 C (98.4 F) 08/15/2024 9:32 AM EDT Respiratory Rate 16 08/15/2024 9:32 AM EDT Oxygen Saturation 99% 08/15/2024 9:32 AM EDT Inhaled Oxygen Concentration - - Weight 60.3 kg (132 lb 15 oz) 08/15/2024 9:32 AM EDT Height 139.7 cm (4' 7 ) 08/15/2024 9:32 AM EDT Body Mass Index 30.9 08/15/2024 9:32 AM EDT Plan of Treatment Upcoming Encounters Date Type Department Care Team (Late st Contact Info) Description 12/25/2024 9:50 AM EDT Appointment [facility] [address] [place] [phone] Campos Obregon MD [address] [place] [address] Health Maintenance Due Date Last Done Comments [facility]-HIV Screening 1977 [facility]-Hepatitis C Screening 1977 [facility]-Infant/Child/Adol SDOH Screenings 1977 [facility]- SDOH Screenings 1995 [facility]-Adult SDOH Screenings 1995 [facility]-Hepatitis B Vaccines (1 of 3 - 19+ 3-dose series) 02/12/1996 [facility]-Pneumococcal Vaccine: Pediatrics (0 to 5 Years) and At-Risk Patients (6 to 49 Years) (1 of 2 - PCV) 02/12/1996 [facility]-Zoster Vaccines (1 of 2) 02/12/1996 [facility]-Pap Smear 1998 [facility]-Cervical Cancer Screening 2007 [facility]-HPV/Cotest 2007 [facility]-DTaP,Tdap,and Td Vaccine s (2 - Td or Tdap) 07/06/2016 07/06/2006 [id number] Vaccine (3 - Pfizer risk series) 06/11/2021 05/14/2021, 04/23/2021 CT Colonography 2022 FIT-DNA 2022 FIT 2022 FOBT 2022 [facility]-Influenza Vaccine (Seaso n Ended) 2025 [facility]-Depression Screening 08/15/2025 025, 03/17/2022 Sigmoidoscopy 08/01/2028 08/02/2023, 08/03/2022, 03/31/2021 Colonoscopy 02/08/2033 02/08/2023, 02/02/2022 [facility]-Colorectal Cancer Screening 02/08/2033 [facility]-Obesity Intervention Completed 025, 08/10/2023, 03/17/2022 HPV Vaccines Aged Out No longer eligi ble based on patient's age to complete this topic [facility]-HIB Vaccines Aged Out No longer e ligible based on patient's age to complete this topic [facility]-Hepatitis A Vaccines Aged Out No longer eligible based on patient's age to complete this topic [facility]-IPV Vaccines Aged Out No longer e ligible based on patient's age to complete this topic [facility]-Rotavirus Vaccines Aged Out No lo nger eligible based on patient's age to complete this topic Goals Goal Patient Goal Type Associated Problems Recent Progress Patient-Stated? Author Autogenerat ed Goal Care Plan Autogenerated Problem No Kat Mariscal Procedures Procedure Name Priority Date/Time Associated Diagnosis Comments EXTRA TUBE LAVENDER TOP Routine 08/15/2024 9:36 AM EDT Rectal cancer (CMS/HCC) EXTRA TUBES Routine 08/15/2024 9:36 AM EDT Rectal cancer (CMS/HCC) CEA, SERUM Routine 08/15/2024 9:36 AM EDT Rectal cancer (CMS/HCC) CT ABDOMEN PELVIS W IV CONTRAST Routine 08/15/2024 7:46 AM EDT Rectal cancer (CMS/HCC) CT CHEST W IV CONTRAST Routine 5 7:46 AM EDT Rectal cancer (CMS/HCC) FLEXIBLE SIGMOIDOSCOPY Routine 4 12:17 PM EDT Rectal cancer (CMS/HCC) COLONOSCOPY Routine 02/08/2023 8:30 AM EDT Rectal cancer (CMS/HCC) from Last 3 Months or Most Recently Relevant to Health Maintenance Results * Lavender Top (08/15/2024 9:36 AM EDT) Extra Hold for add-ons 08/15/2024 1:01 PM EDT [facility] Comment:Auto resulted. Blood Venous blood specimen / Unknown Venipuncture / Unknown 08/15/2024 9:36 AM EDT 08/15/2024 10:10 AM EDT us Campos Obregon MD LAB BLOOD ORDERABLES Final Res ult [facility] [address] [place] [address] * CEA (08/15/2024 9:36 AM EDT) CEA, Serum 2.2 <4.0 ng/mL 08/15/2024 10:42 AM EDT [facility] Blood Venous blood specimen / Unknown Venipuncture / Unknown 08/15/2024 9:36 AM EDT 08/15/2024 10:05 AM EDT Narrative [facility] - 08/15/2024 10:42 AM EDT Normal range for smokers: < 5.5 ng/ml Normal range for non-smokers: <=4.0 ng/ml Performed by [employer] electrochemiluminescent immunoassay. Results obtained with different test methods or kits cannot be used interchangeably. us Campos Obregon MD LAB BLOOD ORDERABLES Final Res ult [facility] [address] [place] [address] * CT Abdomen Pelvis w IV Contrast (08/15/2024 7:46 AM EDT) Anatomical Region Laterality Modality Abdomen, Pelvis Computed Tomogra phy Impressions 08/15/2024 9:37 AM EDT Chest: No evidence of metastatic disease. Abdomen/Pelvis: No definite evidence of local or metastatic recurrence. Nonspecific increased thickening of the endometrium for age that is new when compared to January 2023 and can be correlated with symptomatology and/or dedicated pelvic ultrasound. CRITICAL RESULT: No. COMMUNICATION: Per this written report. Drafted by Kiera Moncada MD on 08/15/2024 9:27 AM Final report signed by Kiera Moncada MD on 08/15/2024 9:37 AM Narrative 08/15/2024 9:37 AM EDT CLINICAL INDICATION: Rectal cancer, staging Wait and watch surveillance in this patient with rectal cancer diagnosed in 2019 achieving complete response after chemoradiation TECHNIQUE: Multiple axial CT images were obtained from thoracic inlet through pubic symphysis following administration of IV contrast, Omnipaque 300, 100 mL. Reformatted images of the abdomen and pelvis in the coronal and sagittal planes were generated from the axial data set to facilitate diagnostic accuracy. Total DLP (Dose-Length Product): 684.29 mGy.cm (accession [id number]), 684.29 mGy.cm (accession [id number]). Please note: The reported value represents the total of one or more individual components during the CT acquisition on this date and at this time, and as such, the same value may appear in more than one CT report depending on the interpreting/reporting physicians. COMPARISON: CT chest, abdomen and pelvis 02/15/2023 FINDINGS: Chest: Lymph Nodes and Mediastinum: Unremarkable thyroid. No thoracic adenopathy. Cardiovascular: Borderline cardiac size. Patent central thoracic great vessels. No pericardial effusion. Lungs and Pleura: Patent central airways. No suspicious sizable pulmonary nodules or focal consolidations. No suspicious enhancing nodular pleural thickening or pleural effusions. Musculoskeletal and Body Wall: No clearly aggressive lytic/blastic osseous lesions or chest wall soft tissue masses. Moderate shoulder osteoarthrosis. Mild multilevel spondylosis. Abdomen/Pelvis: Solid Abdominal Organs: Noncirrhotic liver morphology without suspicious hepatic focal lesions. Mild central intrahepatic and extrahepatic ectasia of the biliary tree postcholecystectomy is similar to prior. Unremarkable pancreas, spleen, adrenal glands and kidneys. Lymph Nodes: No suspicious adenopathy. Vasculature: No large vessel occlusions or aneurysms. GI Tract/Mesentery/Peritoneum: Mild formed fecal burden within the colon that may represent a degree of constipation. No obvious recurrent mass within the rectum. No evidence of GI tract obstruction, perforation or obvious focal inflammation. No suspicious sizable mesenteric/peritoneal masses to suggest overt carcinomatosis. Pelvic Viscera: Unremarkable under distended urinary bladder. There is nonspecific increase endometrial thickness when compared to January 2023, measuring 11 mm in sagittal on 5:88 compared to 7 mm previously on attempted remeasurement of the prior. No adnexal masses. Free Fluid: No ascites. Musculoskeletal and body wall: No clearly aggressive new lytic/blastic osseous lesions or body wall soft tissue masses. Unchanged appearance of L2 vertebral body status post vertebroplasty. 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 Procedure Note Kiera Moncada MD - 08/15/2024 CLINICAL INDICATION: Rectal cancer, staging Wait and watch surveillance in this patient with rectal cancer diagnosedin 2019 achieving complete response after chemoradiation TECHNIQUE: Multiple axial CT images were obtained from thoracic inlet through pubicsymphysis following administration of IV contrast, Omnipaque 300, 100 mL.Reformatted images of the abdomen and pelvis in the coronal and sagittalplanes were generated from the axial data set to facilitate diagnosticaccuracy. Total DLP (Dose-Length Product): 684.29 mGy.cm (accession [id number]),684.29 mGy.cm (accession [id number]). Please note: The reported valuerepresents the total of one or more individual components during the CTacquisition on this date and at this time, and as such, the same value mayappear in more than one CT report depending on the interpreting/reportingphysicians. COMPARISON: CT chest, abdomen and pelvis 02/15/2023 FINDINGS: Chest: Lymph Nodes and Mediastinum: Unremarkable thyroid. No thoracicadenopathy. Cardiovascular: Borderline cardiac size. Patent central thoracic greatvessels. No pericardial effusion. Lungs and Pleura: Patent central airways. No suspicious sizable pulmonarynodules or focal consolidations. No suspicious enhancing nodular pleuralthickening or pleural effusions. Musculoskeletal and Body Wall: No clearly aggressive lytic/blastic osseouslesions or chest wall soft tissue masses. Moderate shoulderosteoarthrosis. Mild multilevel spondylosis. Abdomen/Pelvis: Solid Abdominal Organs: Noncirrhotic liver morphology without suspicioushepatic focal lesions. Mild central intrahepatic and extrahepatic ectasiaof the biliary tree postcholecystectomy is similar to prior. Unremarkablepancreas, spleen, adrenal glands and kidneys. Lymph Nodes: No suspicious adenopathy. Vasculature: No large vessel occlusions or aneurysms. GI Tract/Mesentery/Peritoneum: Mild formed fecal burden within the colonthat may represent a degree of constipation. No obvious recurrent masswithin the rectum. No evidence of GI tract obstruction, perforation orobvious focal inflammation. No suspicious sizable mesenteric/peritonealmasses to suggest overt carcinomatosis. Pelvic Viscera: Unremarkable under distended urinary bladder. There isnonspecific increase endometrial thickness when compared to January2023, measuring 11 mm in sagittal on 5:88 compared to 7 mm previously onattempted remeasurement of the prior. No adnexal masses. Free Fluid: No ascites. Musculoskeletal and body wall: No clearly aggressive new lytic/blasticosseous lesions or body wall soft tissue masses. Unchanged appearance ofL2 vertebral body status post vertebroplasty. Redemonstration of thechronic pars defects at L3. IMPRESSION: Chest: No evidence of metastatic disease. Abdomen/Pelvis: No definite evidence of local or metastatic recurrence.Nonspecific increased thickening of the endometrium for age that is newwhen compared to January 2023 and can be correlated with symptomatologyand/or dedicated pelvic ultrasound. CRITICAL RESULT: No. COMMUNICATION: Per this written report. Drafted by Kiera Moncada MD on 08/15/2024 9:27 AM Final report signed by Kiera Moncada MD on 08/15/2024 9:37 AM us Campos Obregon MD IMG CT PROCEDURES Final Result * CT Chest w IV Contrast (08/15/2024 7:46 AM EDT) Anatomical Region Laterality Modality Chest Computed Tomogra phy Impressions 08/15/2024 9:37 AM EDT Chest: No evidence of metastatic disease. Abdomen/Pelvis: No definite evidence of local or metastatic recurrence. Nonspecific increased thickening of the endometrium for age that is new when compared to January 2023 and can be correlated with symptomatology and/or dedicated pelvic ultrasound. CRITICAL RESULT: No. COMMUNICATION: Per this written report. Drafted by Kiera Moncada MD on 08/15/2024 9:27 AM Final report signed by Kiera Moncada MD on 08/15/2024 9:37 AM Narrative 08/15/2024 9:37 AM EDT CLINICAL INDICATION: Rectal cancer, staging Wait and watch surveillance in this patient with rectal cancer diagnosed in 2019 achieving complete response after chemoradiation TECHNIQUE: Multiple axial CT images were obtained from thoracic inlet through pubic symphysis following administration of IV contrast, Omnipaque 300, 100 mL. Reformatted images of the abdomen and pelvis in the coronal and sagittal planes were generated from the axial data set to facilitate diagnostic accuracy. Total DLP (Dose-Length Product): 684.29 mGy.cm (accession [id number]), 684.29 mGy.cm (accession [id number]). Please note: The reported value represents the total of one or more individual components during the CT acquisition on this date and at this time, and as such, the same value may appear in more than one CT report depending on the interpreting/reporting physicians. COMPARISON: CT chest, abdomen and pelvis 02/15/2023 FINDINGS: Chest: Lymph Nodes and Mediastinum: Unremarkable thyroid. No thoracic adenopathy. Cardiovascular: Borderline cardiac size. Patent central thoracic great vessels. No pericardial effusion. Lungs and Pleura: Patent central airways. No suspicious sizable pulmonary nodules or focal consolidations. No suspicious enhancing nodular pleural thickening or pleural effusions. Musculoskeletal and Body Wall: No clearly aggressive lytic/blastic osseous lesions or chest wall soft tissue masses. Moderate shoulder osteoarthrosis. Mild multilevel spondylosis. Abdomen/Pelvis: Solid Abdominal Organs: Noncirrhotic liver morphology without suspicious hepatic focal lesions. Mild central intrahepatic and extrahepatic ectasia of the biliary tree postcholecystectomy is similar to prior. Unremarkable pancreas, spleen, adrenal glands and kidneys. Lymph Nodes: No suspicious adenopathy. Vasculature: No large vessel occlusions or aneurysms. GI Tract/Mesentery/Peritoneum: Mild formed fecal burden within the colon that may represent a degree of constipation. No obvious recurrent mass within the rectum. No evidence of GI tract obstruction, perforation or obvious focal inflammation. No suspicious sizable mesenteric/peritoneal masses to suggest overt carcinomatosis. Pelvic Viscera: Unremarkable under distended urinary bladder. There is nonspecific increase endometrial thickness when compared to January 2023, measuring 11 mm in sagittal on 5:88 compared to 7 mm previously on attempted remeasurement of the prior. No adnexal masses. Free Fluid: No ascites. Musculoskeletal and body wall: No clearly aggressive new lytic/blastic osseous lesions or body wall soft tissue masses. Unchanged appearance of L2 vertebral body status post vertebroplasty. 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 Procedure Note Kiera Moncada MD - 08/15/2024 CLINICAL INDICATION: Rectal cancer, staging Wait and watch surveillance in this patient with rectal cancer diagnosedin 2019 achieving complete response after chemoradiation TECHNIQUE: Multiple axial CT images were obtained from thoracic inlet through pubicsymphysis following administration of IV contrast, Omnipaque 300, 100 mL.Reformatted images of the abdomen and pelvis in the coronal and sagittalplanes were generated from the axial data set to facilitate diagnosticaccuracy. Total DLP (Dose-Length Product): 684.29 mGy.cm (accession [id number]),684.29 mGy.cm (accession [id number]). Please note: The reported valuerepresents the total of one or more individual components during the CTacquisition on this date and at this time, and as such, the same value mayappear in more than one CT report depending on the interpreting/reportingphysicians. COMPARISON: CT chest, abdomen and pelvis 02/15/2023 FINDINGS: Chest: Lymph Nodes and Mediastinum: Unremarkable thyroid. No thoracicadenopathy. Cardiovascular: Borderline cardiac size. Patent central thoracic greatvessels. No pericardial effusion. Lungs and Pleura: Patent central airways. No suspicious sizable pulmonarynodules or focal consolidations. No suspicious enhancing nodular pleuralthickening or pleural effusions. Musculoskeletal and Body Wall: No clearly aggressive lytic/blastic osseouslesions or chest wall soft tissue masses. Moderate shoulderosteoarthrosis. Mild multilevel spondylosis. Abdomen/Pelvis: Solid Abdominal Organs: Noncirrhotic liver morphology without suspicioushepatic focal lesions. Mild central intrahepatic and extrahepatic ectasiaof the biliary tree postcholecystectomy is similar to prior. Unremarkablepancreas, spleen, adrenal glands and kidneys. Lymph Nodes: No suspicious adenopathy. Vasculature: No large vessel occlusions or aneurysms. GI Tract/Mesentery/Peritoneum: Mild formed fecal burden within the colonthat may represent a degree of constipation. No obvious recurrent masswithin the rectum. No evidence of GI tract obstruction, perforation orobvious focal inflammation. No suspicious sizable mesenteric/peritonealmasses to suggest overt carcinomatosis. Pelvic Viscera: Unremarkable under distended urinary bladder. There isnonspecific increase endometrial thickness when compared to January2023, measuring 11 mm in sagittal on 5:88 compared to 7 mm previously onattempted remeasurement of the prior. No adnexal masses. Free Fluid: No ascites. Musculoskeletal and body wall: No clearly aggressive new lytic/blasticosseous lesions or body wall soft tissue masses. Unchanged appearance ofL2 vertebral body status post vertebroplasty. Redemonstration of thechronic pars defects at L3. IMPRESSION: Chest: No evidence of metastatic disease. Abdomen/Pelvis: No definite evidence of local or metastatic recurrence.Nonspecific increased thickening of the endometrium for age that is newwhen compared to January 2023 and can be correlated with symptomatologyand/or dedicated pelvic ultrasound. CRITICAL RESULT: No. COMMUNICATION: Per this written report. Drafted by Kiera Moncada MD on 08/15/2024 9:27 AM Final report signed by Kiera Moncada MD on 08/15/2024 9:37 AM Campos Obregon MD IMG CT PROCEDURES Final Result * Flexible Sigmoidoscopy (08/02/2023 12:17 PM EDT) Anatomical Region Laterality Modality Endoscopy Narrative 08/02/2023 12:28 PM EDT Table formatting from the original result was not included. Impression: Mild scarred mucosa in the rectum; bleeding occurred after intervention; performed cold forceps biopsy Flexible sigmoidoscopy performed in the setting of rectal cancer. Complete response after neoadjuvant therapy. No evidence of recurrence today. Surveillance flexible sigmoidoscopy demonstrates scar in the anterior midline position. Overall, healthy appearing. Biopsies obtained. No evidence of intraluminal recurrence. Recommendations Await pathology results Indication Rectal cancer (CMS/HCC) Medications See anesthesia record for anesthesia administered medications. Staff Staff Role Lori Gastelum CRNA CRNA Hansberry, Jolynn Endo Clerical Supervisor Jolene Aguila RN Endo Nurse Campos Obregon MD Proceduralist Marshall De Jesus DO Resident - Assisting Maribel Peña MD Anesthesiologist Preprocedure A history and physical has been performed, and patient medication allergies have been reviewed. The patient's tolerance of previous anesthesia has been reviewed. The risks and benefits of the procedure and the sedation options and risks were discussed with the patient. All questions were answered and informed consent obtained. Details of the Procedure The patient underwent monitored anesthesia care, which was administered by an anesthesia professional. The patient's blood pressure, heart rate, level of consciousness, oxygen and respirations were monitored throughout the procedure. A digital rectal exam was performed. A perianal exam was performed. The scope was introduced through the anus and advanced to the sigmoid colon. Retroflexion was performed in the rectum. The quality of bowel preparation was evaluated using the De Ruyter Bowel Preparation Scale with scores of: left colon = 2. Bowel prep was adequate. The patient experienced no blood loss. The procedure was not difficult. The patient tolerated the procedure well. There were no apparent adverse events. Attestation I personally performed the entire procedure Specimens ID Type Source Tests Collected by Time A : bx Tissue Rectum SURGICAL PATHOLOGY EXAM Marshall De Jesus DO 08/02/2023 1212 Findings Mild, localized scarred mucosa in the rectum; bleeding occurred after intervention; performed cold forceps biopsy us Campos Obregon MD GI PROCEDURE ORDERABLES Final Result * Colonoscopy (02/08/2023 8:30 AM EDT) Anatomical Region Laterality Modality Endoscopy Narrative 02/08/2023 8:35 AM EDT Table formatting from the original result was not included. Impression: Normal. Mild, localized scarred mucosa in the rectum Surveillance colonoscopy performed in the setting of rectal cancer with complete response after neoadjuvant chemoradiation. Colonoscopy normal. Residual scar noted in the rectum. Similar appearance to prior endoscopic evaluations. No evidence of mucosal growth. No evidence recurrence. No other polyps, masses, or lesions. Recommend flexible sigmoidoscopy in 6 months. Repeat colonoscopy in 3 years. Recommendation Follow up with me in clinic Indication Order Indication: Rectal cancer (CMS/HCC) Medications midazolam (Versed) injection 6 mg fentaNYL (Sublimaze) injection 150 mcg (Totals for administrations occurring from 0659 to 0828 on 02/08/23) Staff Staff Role Lilia Melo, RN Endo Nurse Ying Mena Endo Clerical Supervisor Campos Obregon MD Proceduralist Marshall De Jesus DO Resident - Assisting Karen Dill RN Endo Nurse Preprocedure A history and physical has been performed, and patient medication allergies have been reviewed. The patient's tolerance of previous anesthesia has been reviewed. The risks and benefits of the procedure and the sedation options and risks were discussed with the patient. All questions were answered and informed consent obtained. Details of the Procedure Sedation was administered by the procedural nurse. The patient's blood pressure, heart rate, level of consciousness, oxygen and respirations were monitored throughout the procedure. A digital rectal exam was performed. A perianal exam was performed. The scope was introduced through the anus and advanced to the cecum. Retroflexion was performed in the rectum. The quality of bowel preparation was evaluated using the De Ruyter Bowel Preparation Scale with scores of: right colon = 2, transverse colon = 2, left colon = 2. The total BBPS score was 6. Bowel prep was adequate. The patient experienced no blood loss. The procedure was not difficult. The patient tolerated the procedure well. There were no apparent adverse events. Conscious sedation administered by myself, NATHALY Obregon MD; monitored and without complication. Lilia Melo RN was independent observer. See nursing notes for details. Attestation I personally performed the entire procedure Events Procedure Events Event Event Time ENDO SCOPE IN TIME 02/08/2023 8:08 AM ENDO CECUM REACHED 02/08/2023 8:23 AM ENDO SCOPE OUT TIME 02/08/2023 8:28 AM Specimens No specimens were documented in this log. Findings All observed locations appeared normal. Mild, localized scarred mucosa in the rectum; no bleeding was identified us Campos Obregon MD GI PROCEDURE ORDERABLES Final Result from Last 3 Months or Most Recently Relevant to Health Maintenance Additional Health Concerns Active Problems Noted Date Diagnosed Date Autogenerated Problem 08/15/2024 Insurance [employer] Care Teams Boiler Plant Operator Relationship Specialty Start Date End Date Pcp, No [address] [place] [address] PCP - General Family Medicine 08/02/23 Campos Obregon MD [address] [place] [address] Surgeon Colon and Rectal Surgery 03/17/22
== END 2024-10-26 23:59 | disposition home or self-care (01) ==
LOC: LAB.DROPOF 10-27 12:31
PROVIDERS: PCP Student in an Organized Health Care Education/Training Program; Visit Provider Student in an Organized Health Care Education/Training Program
DX: N30.01 Acute cystitis with hematuria (principal)
CPT/HCPCS: 87086

== ENCOUNTER 2024-12-13 15:06 | Outpatient (POV) | payer SELFPAY ==
--- OUTSIDE RECORDS SUMMARY | 2024-12-13 15:10 | XMS_ITS | Encounter Summary ---
Author Organization Healthcare Address [address] [place] [address] Care Team Providers Care Vocational Director Name Role Phone Campos Obregon MD Unavailable [phone] Pcp, No Primary Care Provider Unavailabl e Encounter Details Date Type Department Care Team (Late Contact Info) Description 12/04/2024 Orders Only [facility] [address] [place] [phone] Campos Obregon MD [address] [address] Social History Tobacco Use Types Packs/Day Years Used Date Smoking Tobacco: Never Smokeless Tobacco: Never Alcohol Use Standard Drinks/Week Comments Never 0 (1 standard drink = 0.6 oz pur e alcohol) PHQ-2 Answer Date Recorded Patient Health Questionnaire-2 Score 0 08/15/2024 Comments No Sex and Gender Information Value Date Recorded Sex Assigned at Not on file Legal Sex Female 7:49 PM EDT Gender Identity Not on file Sexual Orientation Not on file documented as of this encounter Plan of Treatment Upcoming Encounters Date Type Department Care Team (Late Contact Info) Description 12/25/2024 9:50 AM EDT Appointment [facility] Endoscopy [address] [place] [phone] Campos Obregon MD [id number] [place] [phone] documented as of this encounter Goals Goal Patient Goal Type Associated Problems Recent Progress Patient-Stated? Author Autogenerat ed Goal Care Plan Autogenerated Problem Leticia Loida Kat Jackie documented as of this encounter Visit Diagnoses Not on filedocumented in this encounter Additional Health Concerns Active Problems Noted Date Diagnosed Date Autogenerated Problem 08/15/2024 Assessment Noted Time A fall risk assessment has been complete d for the patient 08/15/2024 9:31 AM EDT A Body Mass Index follow-up plan has been documented for the patient 08/18/2024 11:09 AM EDT documented as of this encounter Care Teams Vocational Director Relationship Specialty Start Date End Date Pcp, No [address] [place] [address] PCP - General Family Medicine 08/02/23 Campos Obregon MD [address] [place] [address] Surgeon Colon and Rectal Surgery 03/17/22 documented as of this encounter
--- OUTSIDE RECORDS SUMMARY | 2024-12-13 15:10 | XMS_ITS | Encounter Summary ---
Author Organization Healthcare Address [address] [place] [address] Care Team Providers Care Rn Office Name Role Phone Campos Obregon MD Unavailable [phone] Pcp, No Primary Care Provider Unavailabl e Encounter Details Date Type Department Care Team (Late st Contact Info) Description 12/01/[address] [facility] General Surgery [address], [address] [place] [address] Campos Obregon MD [address] [facility] [address] [place] [address] Social History Tobacco Use Types Packs/Day [...] on file documented as of this encounter Miscellaneous Notes * Telephone Encounter - Kerry Randall RN - 12/04/2024 10:04 AM EDT Prescriptions for bisacodyl/Miralax bowel prep sent to patient's pharmacy. documented in this encounter Plan of Treatment Upcoming Encounters Date Type Department Care Team (Late st Contact Info) Description 12/25/2024 9:50 AM EDT Appointment [facility] Endoscopy [address] [place] [address] Campos Obregon MD [address] [address] documented as of this encounter Goals Goal Patient Goal Type Associated Problems Recent Progress Patient-Stated? Author Autogenerat ed Goal Care Plan Autogenerated Problem No Kat Mariscal documented as of this encounter Visit Diagnoses [...] documented as of this encounter Care Teams Rn Office Relationship Specialty Start Date End Date Pcp, No [address] [place] [address] PCP - General Family Medicine 08/02/23 Campos Obregon MD [address] [address] Surgeon Colon and Rectal Surgery 03/17/22 documented as of this encounter
--- OUTSIDE RECORDS SUMMARY | 2024-12-13 15:10 | XMS_ITS | Clinical Summary ---
Author Organization Healthcare Address [address] [place] [address] Care Team Providers Care Manager Disaster Recovery Name Role Phone Campos Obregon MD Unavailable [phone] Pcp, No Primary Care Provider Unavailabl [...] (Flexeril) 5 MG tablet 02/02/20 24 Active bisacodyl (Dulcolax) 5 MG EC tablet Day before procedure at 4pm take 4 tablets with 8 oz of clear liquid. SSICOLON 4 tablet 12/05/19 25 Active polyethylene glycol (MiraLax) 17 GM/SCOOP powder At 6pm day BEFORE surgery, mix Miralax (polyethylene glycol) powder with 64 oz sports drink. Stir to dissolve. Drink one cup (8oz) every 15 minutes until completed finished. SSICOLON 238 g 12/05/19 25 Active Encounters Date Type Department Care Team Description 12/04/2024 Orders Only [facility] [address] [place] [phone] Campos Obregon MD 12/01/2024 Telephone [facility] General Surgery [address] [place] [address] Campos Obregon MD from Last 3 Months Family History Medical [...] EDT Appointment [facility] Endoscopy [address] [place] [phone] Campos Obregon MD [address] [place] [address] Health Maintenance Due Date Last Done Comments [facility]-HIV Screening 1977 [facility]-Hepatitis C Screening 1977 [facility]-/Child/Adol SDOH Screenings 1977 [facility]- SDOH Screenings 1995 [...] (2 - Td or Tdap) 07/06/2016 07/06/2006 [id number] Vaccine (3 - Pfizer risk series) 06/11/2021 05/14/2021, 04/23/2021 CT Colonography 2022 FIT-DNA 2022 FIT 2022 FOBT 2022 [facility]-Influenza Vaccine (#1) 2025 [facility]-Depression Screening 08/15/2025 025, 03/17/2022 Sigmoidoscopy [...] Autogenerat ed Goal Care Plan Autogenerated Problem Kat Clemons Procedures Procedure Name Priority Date/Time Associated Diagnosis Comments FLEXIBLE SIGMOIDOSCOPY Routine 12:17 PM EDT Rectal cancer (CMS/HCC) COLONOSCOPY Routine 02/08/2023 8:30 AM EDT Rectal cancer (CMS/HCC) from Last 3 Months or Most Recently Relevant to Health Maintenance Results * Flexible Sigmoidoscopy (08/02/2023 12:17 PM EDT) [...] Lori Gastelum CRNA CRNA Hansberry, Jolynn Endo Diabetes Physician Jolene Aguila RN Endo Nurse Campos Obregon [...] of bowel preparation was evaluated using the [place] Bowel Preparation Scale with scores of: left [...] 0828 on 02/08/23) Staff Staff Role Lilia Melo RN Endo Nurse Ying Mena Endo Diabetes Physician Campos Obregon MD Proceduralist Marshall De Jesus [...] of bowel preparation was evaluated using the [place] Bowel Preparation Scale with scores of: right [...] Noted Date Diagnosed Date Autogenerated Problem 08/15/2024 Care Teams Manager Disaster Recovery Relationship Specialty Start Date End Date Pcp, Leticia [address] [place] [address] PCP - General Family Medicine 08/02/23 Campos Obregon MD [address] [place] [address] Surgeon Colon and Rectal Surgery 03/17/22
[2024-12-13 15:27] VITALS: BP 114/67; PULSE 100; RESP 14; O2SAT 100; BMI 30.2
--- NOTE | 2024-12-13 15:35 | EXP.PAIN.SOA ---
[facility] Disclaimer: The information contained in this section may have been updated after the patient was seen, as this information can be updated by other users. 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 Recurrent major depression resistant to treatment Colon cancer Anxiety Cancer HLD (hyperlipidemia) TAM (dyspnea on exertion) Surgical History History of heart surgery History of back surgery History of section History of cholecystectomy Family History Other No significant family history Social History Smoking Status: Former smoker second hand exposure: No alcohol intake: never counseling provided: none substance use type: denies use current occupational status: other Travel in the last 8 weeks?: None household members: none housing: apartment lives independently: Yes marital status: single number of children: 1 number of grandchildren: 0 education level: high school current occupation: [employer] current occupational exposures/hazards: No caffeine: No working smoke detector in home: Yes fire extinguisher in home: No carbon monox detector in home: No firearms in home: No do you feel safe at home: Yes victim of physical abuse: No victim of emotional abuse: No victim of sexual abuse: No would you like helpful sources: No PM Subjective & Objective Subjective Subjective:: Patient is a pleasant 49-year-old female who presents today for follow-up. Today she rates her pain a 4 out of 10. She denies any new trauma or injury. She states overall she still has low back pain that will come and go and does still seem to be all in her SI joints. Patient does state that she ended up getting the control implant in her arm. Patient is prescribed Flexeril 5 mg at bedtime, methocarbamol 750 mg during the day and raloxifene 60 mg daily from our office. She denies any side effects. She does not need refills at this time. Her Jason has been reviewed and is appropriate. Review of Systems: General: No recent weight changes, no fever, no sleep disturbances Respiratory: No cough, no shortness of air, no recurring pulmonary infections Cardiovascular/peripheral vascular: No chest pain, no palpitations, no edema, no shortness of breath Gastrointestinal: No new onset incontinence, normal bowel movements reported Genitourinary: No new onset incontinence Musculoskeletal: Low back pain Psychiatric: [Normal mood/affect] Neurological: [Denies weakness in extremities], [denies balance issues] Pain at rest (0-10 scale): 4 Objective Objective:: Physical Exam: General: Alert and oriented x3, no acute distress, pleasant and cooperative Lungs: Respirations even and unlabored, symmetrical chest expansion Eyes: PERRL Musculoskeletal: Flexion and extension of lumbar [spine] somewhat guarded secondary to pain, [antalgic gait noted] Neurological: Speech clear, no gross sensory deficit Has patient had previous pain injection?: No Conservative treatment options previously tried: Home exercise plan Length of treatment: Longer than 12 weeks Meds Home Medications and Allergies Home Medications ?Medication ?Instructions ?Recorded ?Confirmed ?Type atorvastatin 10 mg tablet See Rx Instructions .Route 03/07/24 12/13/24 Rx .COMPLEX #90 tabs lidocaine 5 % topical patch 1 patch topical DAILY #30 ea 05/09/24 12/13/24 Rx bupropion HCl 150 mg 24 hr tablet, 150 mg PO DAILY #90 tabs 06/20/24 12/13/24 Rx extended release ketoconazole 2 % topical cream 1 applic topical BID #30 grams 07/25/24 12/13/24 Rx raloxifene 60 mg tablet 60 mg PO DAILY #30 tabs 08/04/24 12/13/24 Rx alprazolam 0.5 mg tablet 0.5 mg PO DAILY #30 tabs 10/25/24 12/13/24 Rx New Prescriptions to Start Prescriptions: Allergies Allergy/AdvReac Type Severity Reaction Status Date / Time cefdinir AdvReac Unknown gi upset Verified 12/11/24 14:20 Assessment and Plan *Assessment and plan (1) Sacroiliitis: Status: Acute Category: Medical Code(s): M46.1 - Sacroiliitis, not elsewhere classified Plan I did discuss with the patient that she is may still benefit from additional SI injections however we will wait and see how she does over the next month. Patient will return to clinic in 1 month for reevaluation of symptoms and plan of care. Patient has been instructed to contact the clinic with any concerns before the next appointment. Dr. Flood has reviewed this note and agrees with this plan of care. This note was dictated using voice recognition software and make contain errors or omissions. All injections are used with Lidocaine, Bupivacaine and dexamethasone. Occasionally urine drug screen is needed to verify patient's compliance with our office pain contract. This is ordered based off specific treatments related to chronic pain with the potential to abuse certain medications.
== END 2024-12-13 23:59 | disposition home or self-care (01) ==
PROVIDERS: PCP Nurse Practitioner Family; Visit Provider Nurse Practitioner Family
DX: M46.1 Sacroiliitis, not elsewhere classified (principal); Z79.899 Other long term (current) drug therapy
CPT/HCPCS: 99212; G0463

== ENCOUNTER 2024-12-30 13:55 | Emergency (ER) | payer OTHER, SELFPAY ==
[2024-12-30 13:56] VITALS: BP 149/89; PULSE 104; RESP 20; TEMP 37; O2SAT 98; BMI 29.9
--- NOTE | 2024-12-30 13:59 | ECG_ITS ---
APPROVED REPORT Exam: Resting ECG HR:99 bpm ECG Measurements Heart Rate 99 AXES NC 144 P 54 QRSd 77 QRS -10 QT 345 T 63 QTc 401 Conclusion SINUS RHYTHM LOW QRS VOLTAGE IN PRECORDIAL LEADS [QRS DEFLECTION < 1.0 mV IN CHEST LEADS] BORDERLINE ECG UNCONFIRMED REPORT Normal sinus rhythm. No ST elevation or depression. QTc normal at 401 Electronically signed by : WINSTON SELBY, 12/31/2024 07:18:11
--- OUTSIDE RECORDS SUMMARY | 2024-12-30 14:05 | XMS_ITS | Encounter Summary ---
Author Organization Healthcare Address [address] [place] [address] Care Team Providers Care Sandwich Hand Name Role Phone Campos Obregon MD Unavailable [phone] Pcp, No Primary Care Provider Unavailabl e Encounter Details Date Type Department Care Team (Late st Contact Info) Description 12/04/2024 Orders Only [facility] [address] [place] [address] Campos Obregon MD [address] [facility] [address] [place] [address] Social History Tobacco Use Types [...] as of this encounter Plan of Treatment Not on file documented as of this encounter Visit Diagnoses Not on filedocumented in this encounter Additional Health Concerns Assessment Noted Time A fall risk assessment has been complete d for the patient 08/15/2024 9:31 AM EDT A Body Mass Index follow-up plan has been documented for the patient 08/18/2024 11:09 AM EDT documented as of this encounter Care Teams Sandwich Hand Relationship Specialty Start Date End Date Pcp, No [address] [place] [address] PCP - General Family Medicine 08/02/23 Campos Obregon MD [address] [place] [address] Surgeon Colon and Rectal Surgery 03/17/22 documented as of this encounter
--- OUTSIDE RECORDS SUMMARY | 2024-12-30 14:05 | XMS_ITS | Clinical Summary ---
Author Organization Healthcare Address [address] [place] [address] Care Team Providers Care Director Of Provider Relations Name Role Phone Campos Obregon MD Unavailable [phone] Pcp, No Primary Care Provider Unavailabl [...] Encounters Date Type Department Care Team Description 12/18/2024 Telephone [facility] General Surgery [address], [address] [place] [address] Campos Obregon MD [facility] Clinical Concern/Question 12/04/2024 Orders Only [facility] [address] [address] Campos Obregon MD 12/01/2024 Telephone [facility] General Surgery [address], [address] [place] [address] Campos Obregon MD from Last 3 Months [...] 08/15/2024 9:32 AM EDT Plan of Treatment Health Maintenance Due Date Last Done Comments [...] (2 - Td or Tdap) 07/06/2016 07/06/2006 [id number] Vaccine (3 - Pfizer risk series) 06/11/2021 [...] on patient's age to complete this topic Procedures Procedure Name Priority Date/Time Associated Diagnosis Comments FLEXIBLE SIGMOIDOSCOPY Routine 4 12:17 PM EDT [...] Lori Gastelum CRNA CRNA Hansberry, Jolynn Endo Policy Change Clerk Jolene Aguila RN Endo Nurse Campos Obregon [...] of bowel preparation was evaluated using the [place] Bowel Preparation Scale with scores of: left colon = 2. Bowel prep was adequate. The patient experienced no blood loss. The procedure was not difficult. The patient tolerated the procedure well. There were no apparent adverse events. Attestation I personally performed the entire procedure Specimens ID Type Source Tests Collected by Time A : bx Tissue Rectum SURGICAL PATHOLOGY EXAM Menning, Marshall Z, DO 08/02/2023 1212 Findings Mild, localized scarred [...] Melo, RN Endo Nurse Ying Mena Endo Policy Change Clerk Campos Obregon MD Proceduralist Marshall De Jesus [...] of bowel preparation was evaluated using the [place] Bowel Preparation Scale with scores of: right [...] or Most Recently Relevant to Health Maintenance Care Teams Director Of Provider Relations Relationship Specialty Start Date End Date Pcp, No [address] [place] [address] PCP - General Family Medicine 08/02/23 Campos Obregon MD [address] [facility] [address] [place] [address] Surgeon Colon and Rectal Surgery 03/17/22
--- OUTSIDE RECORDS SUMMARY | 2024-12-30 14:05 | XMS_ITS | Encounter Summary ---
Author Organization Healthcare Address [address] [place] [address] Care Team Providers Care Farm Agent Name Role Phone Campos Obregon MD Unavailable [phone] Pcp, No Primary Care Provider Unavailabl e Encounter Details Date Type Department Care Team (Late st Contact Info) Description 12/01/2024 Telephone [facility] General Surgery [address] [place] [address] Campos Obregon MD [address] [facility] [address] [place] [address] Social History Tobacco Use Types [...] documented in this encounter Plan of Treatment Not on [...] documented as of this encounter Care Teams Farm Agent Relationship Specialty Start Date End Date Pcp, Leticia [address] [place] [address] PCP - General Family Medicine 08/02/23 Campos Obregon MD [address] [facility] [address] [place] [address] Surgeon Colon and Rectal Surgery 03/17/22 documented as of this encounter
--- OUTSIDE RECORDS SUMMARY | 2024-12-30 14:05 | XMS_ITS | Encounter Summary ---
Author Organization Healthcare Address [address] [place] [address] Care Team Providers Care Refrigeration Operator Name Role Phone Campos Obregon MD Unavailable [phone] Pcp, No Primary Care Provider Unavailabl e Reason for Visit * Reason Onset Date Comments [facility] Clinical Concern/Question 12/18/2024 Encounter Details Date Type Department Care Team (Late st Contact Info) Description 12/18/2024 Telephone [facility] General Surgery [address] [place] [address] Campos Obregon MD [address] [facility] [address] [place] [address] [facility] Clinical Concern/Question Social History Tobacco Use Types Packs/Day Years [...] Telephone Encounter - Kerry Randall RN - 12/18/2024 12:01 PM EDT Patient scheduled for colonoscopy 12/25 but currently w/o insurance and waiting on new insurance card. When she calls us with info we will reschedule colonoscopy. * Telephone Encounter - Johanny Lowery - 12/18/2024 9:44 AM EDT Clinical Concern/Question Reason for Call: Patient asking to r/s colonoscopy due to no insurance Best contact number: Other: [phone] Optimal time of day to reach caller: ANYTIME Additional comments/information from caller: None Note: Please do not reply to this message. Follow-up communication and further actions as a result of this message need to be communicated with the patient directly, if the patient is not active onMyChart. If the patient is active on MyChart, they will receive notification of the communication/outcome via [employer]. documented in this encounter Plan of Treatment [...] documented as of this encounter Care Teams Refrigeration Operator Relationship Specialty Start Date End Date Pcp, [place] [address] PCP - General Family Medicine 08/02/23 Campos Obregon MD [address] [place] [address] Surgeon Colon and Rectal Surgery 03/17/22 documented as of this encounter
--- NOTE | 2024-12-30 14:11 | XR_ITS ---
PROCEDURE INFORMATION: Exam: XR Chest Exam date and time: 12/30/2024 2:23 PM Age: 49 years old Clinical indication: Other: Palpitations TECHNIQUE: Imaging protocol: Radiologic exam of the chest. Views: 1 view. COMPARISON: CT CHEST W CON 10/20/2022 10:51 AM FINDINGS: Lungs: The lungs are clear. Pleural spaces: No pneumothorax or pleural effusion. Heart/Mediastinum: Heart size is enlarged. Mediastinal contours unremarkable. Bones/joints: No acute osseous or soft tissue abnormality. IMPRESSION: 1. The lungs are clear. 2. Cardiomegaly.
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
[2024-12-30 14:29] LABS: Coronavirus 19, PCR Not Detected (NotDetected); Influenza A, PCR Not Detected (NotDetected); Influenza B, PCR Not Detected (NotDetected)
[2024-12-30] MEDS: 0.9 % SODIUM CHLORIDE 1000ML 1,000 ML 999 ML IV (14:42)
[2024-12-30] MEDS: FAMOTIDINE 20MG/2ML VIAL 20 MG IV (14:43)
[2024-12-30] MEDS: MECLIZINE 25MG TABLET 25 MG PO (14:43)
[2024-12-30] MEDS: SODIUM CHLORIDE 0.9% 10ML VIAL 8 ML IV (14:43)
[2024-12-30 14:52] VITALS: BP 136/82; PULSE 88; RESP 20; O2SAT 100
[2024-12-30 15:00] VITALS: BP 134/90; PULSE 90; RESP 14; O2SAT 100
[2024-12-30 15:01] LABS: Hematocrit 38.8 % (37.0-47.0); Hemoglobin 13.3 g/dL (12.2-16.2); Immature Granulocytes % 0.1 %; Mean Corpuscular HGB Conc 34.3 g/dL (31.8-35.4); Mean Corpuscular Hemoglobin 32.1 pg (27.0-31.2); Mean Corpuscular Volume 93.7 fl (81-99); Nucleated Red Blood Cells % 0 %; Platelet Count 268 K/mm3 (142-424); Red Blood Count 4.14 M/mm3 (4.20-5.40); Red Cell Distribution Width-SD 41.7 fL; White Blood Count 7.1 K/mm3 (4.8-10.8)
[2024-12-30 15:09] LABS: Albumin Level 4.3 g/dl (3.5-5.0); Chloride 106 mmol/L (98-107); Potassium 3.7 mmoL/L (3.5-5.1); Sodium 137 mmol/L (136-145)
[2024-12-30 15:12] LABS: Alanine Aminotransferase 20 U/L (12-78); Albumin/Globulin Ratio 1.5 (1.1-1.8); Alkaline Phosphatase 83 U/L (38-126); Anion Gap 10.7 mEq/L (5-15); Aspartate Amino Transferase 29 U/L (14-36); Bilirubin,Total 0.5 mg/dl (0.2-1.3); Blood Urea Nitrogen 10 mg/dl (7-17); Calcium 9.2 mg/dl (8.4-10.2); Carbon Dioxide 24 mmol/L (22.0-30.0); Creatinine Clearance Estimated 80 mL/min (50-200); Creatinine,Serum 0.80 mg/dl (0.52-1.04); Estimated Glomerular Filt Rate 77 ml/min (>60); GFR (African American) 93 ML/MIN (>60); Globulin 2.8 g/dL (1.3-3.2); Glucose 98 mg/dl (74-100); Lipase 51 U/L (23-300); Total Protein,Serum 7.1 g/dl (6.3-8.2)
[2024-12-30 15:13] LABS: Magnesium 1.9 mg/dl (1.6-2.3)
[2024-12-30 15:27] LABS: Troponin I < 0.01 ng/ml (0.00-0.034)
[2024-12-30 15:30] VITALS: BP 137/93; PULSE 88; RESP 19; O2SAT 100
--- NOTE | 2024-12-30 15:42 | PC.NURSE ---
Called RT for holter monitor at this time.
--- NOTE | 2024-12-30 15:48 | PC.NURSE ---
RT Gosia called to report patient is self-pay and she is unable to place holter monitor on today but patient could return wednesday and be placed on a payment plan or discuss payment for holter monitor at that time. KARIN Alfonso updated.
[2024-12-30 15:49] VITALS: BP 137/93; PULSE 78; RESP 20; TEMP 36.7; O2SAT 100
== END 2024-12-30 16:00 | disposition home or self-care (01) ==
PROVIDERS: Nurse Practitioner; Emergency Provider Student in an Organized Health Care Education/Training Program
DX: R00.2 Palpitations (principal); H81.10 Benign paroxysmal vertigo, unspecified ear
CPT/HCPCS: 71045; 80053; 83690; 83735; 84484; 85025; 87636; 93005; 96361; 96374; 99284; J7030

== ENCOUNTER 2025-01-15 14:05 | Outpatient (POV) | payer OTHER, MEDICAID, SELFPAY ==
--- OUTSIDE RECORDS SUMMARY | 2025-01-15 14:09 | XMS_ITS | Encounter Summary ---
Author Organization Healthcare Address [address] [place] [address] Care Team Providers Care Cosmetic Chemist Name Role Phone Campos Obregon MD Unavailable [phone] Pcp, No Primary Care Provider Unavailabl e Reason for Visit * Reason Onset Date Comments HCN Clinical Concern/Question 12/18/2024 Encounter Details Date Type Department Care Team (Late st Contact Info) Description 12/18/2024 Telephone [facility] General Surgery [address] [place] [address] Campos Obregon MD [address] [facility] [address] [place] [address] HCN Clinical Concern/Question Social History [...] to no insurance Best contact number: Other: [phone] Optimal time of day to reach caller: ANYTIME Additional comments/information from caller: None Note: Please do not reply to this message. Follow-up communication and further actions as a result of this message need to be communicated with the patient directly, if the patient is not active onMyChart. If the patient is active on MyChart, they will receive notification of the communication/outcome via Drimkihart. documented in this encounter Plan of Treatment [...] documented as of this encounter Care Teams Cosmetic Chemist Relationship Specialty Start Date End Date Pcp, [place] [address] PCP - General Family Medicine 08/02/23 Campos Obregon MD [address] [place] [address] Surgeon Colon and Rectal Surgery 03/17/22 documented as of this encounter
--- OUTSIDE RECORDS SUMMARY | 2025-01-15 14:09 | XMS_ITS | Encounter Summary ---
Author Organization Healthcare Address [address] [place] [address] Care Team Providers Care Night Time Babysitter Name Role Phone Campos Obregon MD Unavailable [phone] Pcp, No Primary Care Provider Unavailabl e Encounter Details Date Type Department Care Team (Late st Contact Info) Description 12/04/2024 Orders Only [facility] [address] [place] [address] Campos Obregon MD [address] [facility] [address] [place] [address] Social History Tobacco Use Types [...] documented as of this encounter Care Teams Night Time Babysitter Relationship Specialty Start Date End Date Pcp, No [address] [place] [address] PCP - General Family Medicine 08/02/23 Campos Obregon MD [address] [place] [address] Surgeon Colon and Rectal Surgery 03/17/22 documented as of this encounter
--- OUTSIDE RECORDS SUMMARY | 2025-01-15 14:09 | XMS_ITS | Clinical Summary ---
Author Organization Healthcare Address [address] [place] [address] Care Team Providers Care Material Handling Supervisor Name Role Phone Campos Obregon MD Unavailable [phone] Pcp, No Primary Care Provider Unavailabl [...] Type Department Care Team Description 12/18/[address] [facility] General Surgery [address] [place] [address] Campos Obregon MD HCN Clinical Concern/Question 12/04/2024 Orders Only [facility] [address] [place] [address] Campos Obregon MD 12/01/[address] [facility] General Surgery [address] [place] [address] Campos Obregon MD from Last 3 Months [...] (2 - Td or Tdap) 07/06/2016 07/06/2006 [id number] Vaccine (3 - Pfizer risk series) 06/11/2021 [...] Lori Gastelum CRNA CRNA [place], Jolynn Endo Knitted Goods Shaper Jolene Aguila RN Endo Nurse Campos Obregon [...] of bowel preparation was evaluated using the [place] Bowel Preparation Scale with scores of: left [...] Melo, RN Endo Nurse Ying Mena Endo Knitted Goods Shaper Campos Obregon MD Proceduralist Marshall De Jesus [...] of bowel preparation was evaluated using the [place] Bowel Preparation Scale with scores of: right [...] Recently Relevant to Health Maintenance Care Teams Material Handling Supervisor Relationship Specialty Start Date End Date Pcp, No [address] [place] [address] PCP - General Family Medicine 08/02/23 Campos Obregon MD [address] [facility] [address] [place] [address] Surgeon Colon and Rectal Surgery 03/17/22
--- OUTSIDE RECORDS SUMMARY | 2025-01-15 14:09 | XMS_ITS | Encounter Summary ---
Author Organization Healthcare Address [address] [place] [address] Care Team Providers Care Wellness Specialist Name Role Phone Campos Obregon MD Unavailable [phone] Pcp, No Primary Care Provider Unavailabl e Encounter Details Date Type Department Care Team (Late st Contact Info) Description 12/01/[address] [facility] General Surgery [address] [place] [address] Campos Obregon MD [address] [facility] [address] [place] [address] Social History Tobacco Use Types [...] documented as of this encounter Care Teams Wellness Specialist Relationship Specialty Start Date End Date Pcp, Leticia [address] [place] [address] PCP - General Family Medicine 08/02/23 Campos Obregon MD [address] [facility] [address] [place] [address] Surgeon Colon and Rectal Surgery 03/17/22 documented as of this encounter
[2025-01-15 14:18] VITALS: BP 122/72; PULSE 104; RESP 14; O2SAT 98; BMI 29.9
--- NOTE | 2025-01-15 14:28 | EXP.PAIN.SOA ---
[facility] Disclaimer: The information contained in this section may have been updated after the patient was seen, as this information can be updated by other users. 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 Recurrent major depression resistant to treatment Colon cancer Anxiety Cancer HLD (hyperlipidemia) TAM (dyspnea on exertion) Surgical History History of heart surgery History of back surgery History of section History of cholecystectomy Family History Other No significant family history Social History Smoking Status: Never smoker second hand exposure: No alcohol intake: never counseling provided: none substance use type: denies use current occupational status: other Travel in the last 8 weeks?: None household members: none housing: apartment lives independently: Yes marital status: single number of children: 1 number of grandchildren: 0 education level: high school current occupation: [employer] current occupational exposures/hazards: No caffeine: No working smoke detector in home: Yes fire extinguisher in home: No carbon monox detector in home: No firearms in home: No do you feel safe at home: Yes victim of physical abuse: No victim of emotional abuse: No victim of sexual abuse: No would you like helpful sources: No PM Subjective & Objective Subjective Subjective:: Patient is a pleasant 49-year-old female who presents today for worsening low back pain and hip pain. She rates her pain currently not as bad however does state the pain will go to at least a 6 out of 10 when she is working or in prolonged positioning such as sitting or laying down. She does state that this is still that same pain that we have been treating of the SI joint pain and that she would like to see about getting in for additional injections as the pain is interfering with her ability to perform activities of daily living such as cooking and cleaning. Patient had her last injections in June that did provide 90% improvement and lasted longer than 3 months. At that injection it was just for her right side. Patient does state that the right side has always been the worst side. Patient has continued conservative treatment with no additional improvement. Patient is prescribed Flexeril 5 mg at bedtime, methocarbamol 750 mg during the day and osteoporosis medication 60 mg daily from our office. She denies any side effects. Her Jason has been reviewed and is appropriate.\ Review of Systems: General: No recent weight changes, no fever, no sleep disturbances Respiratory: No cough, no shortness of air, no recurring pulmonary infections Cardiovascular/peripheral vascular: No chest pain, no palpitations, no edema, no shortness of breath Gastrointestinal: No new onset incontinence, normal bowel movements reported Genitourinary: No new onset incontinence Musculoskeletal: Low back pain, hip pain Psychiatric: [Normal mood/affect] Neurological: [Denies weakness in extremities], [denies balance issues] Pain at rest (0-10 scale): 6 Objective Objective:: Physical Exam: General: Alert and oriented x3, no acute distress, pleasant and cooperative Lungs: Respirations even and unlabored, symmetrical chest expansion Eyes: PERRL Musculoskeletal: Flexion and extension of lumbar [spine] somewhat guarded secondary to pain, [antalgic gait noted] point tenderness along bilateral SIs with positive bilateral Shailesh's, Zachary's, Gaenslen's, compression and distraction exam Neurological: Speech clear, no gross sensory deficit Has patient had previous pain injection?: No Conservative treatment options previously tried: Home exercise plan Length of treatment: Longer than 12 weeks Meds Home Medications and Allergies Home Medications ?Medication ?Instructions ?Recorded ?Confirmed ?Type atorvastatin 10 mg tablet See Rx Instructions .Route 03/07/24 01/15/25 Rx .COMPLEX #90 tabs lidocaine 5 % topical patch 1 patch topical DAILY #30 ea 05/09/24 01/15/25 Rx bupropion HCl 150 mg 24 hr tablet, 150 mg PO DAILY #90 tabs 06/20/24 01/15/25 Rx extended release ketoconazole 2 % topical cream 1 applic topical BID #30 grams 07/25/24 01/15/25 Rx raloxifene 60 mg tablet 60 mg PO DAILY #30 tabs 08/04/24 01/15/25 Rx alprazolam 0.5 mg tablet 0.5 mg PO DAILY #30 tabs 10/25/24 01/15/25 Rx meclizine 25 mg tablet 25 mg PO BID PRN dizziness #20 tabs 12/30/24 01/15/25 Rx New Prescriptions to Start Prescriptions: Allergies Allergy/AdvReac Type Severity Reaction Status Date / Time cefdinir AdvReac Unknown gi upset Verified 12/11/24 14:20 Assessment and Plan *Assessment and plan (1) Sacroiliitis: Status: Acute Category: Medical Code(s): M46.1 - Sacroiliitis, not elsewhere classified Plan Patient is experiencing worsening pain along the low back and bilateral hips. They did have limited range of motion of the lumbar spine along with point tenderness along bilateral SI joints and a positive bilateral Shailesh's, Zachary's, Gaenslen's, compression and distraction exam. I did discuss with the patient that I do believe they would benefit from bilateral SI injections. Risk and benefits were discussed with the patient and they would like to proceed forward with this option. Patient has tried and failed conservative therapy. Patient has been actively doing conservative treatment including oral medication, heat and ice, topicals, at home exercising and stretching for longer than 12 weeks. Patient is having to adjust their activity based off the increased pain resulting in activity modification. I do believe the patient would benefit from SI injection. Patient has gotten significant relief in the past with her last SI injections providing 90% relief and lasting longer than 3 months. Patient has had this chronic pain for longer than a year. Patient is not a candidate for SI fusion due to severe osteoporosis. This will be a therapeutic injection with less than 1.5 mL solution to be injected. Patient will be scheduled for bilateral SI injections under fluoroscopy. Patient has been instructed to contact the clinic with any concerns before the next appointment. Dr. Flood has reviewed this note and agrees with this plan of care. This note was dictated using voice recognition software and make contain errors or omissions. All injections are used with Lidocaine or Bupivacaine and dexamethasone unless diagnostic in which no steroids were injected.
== END 2025-01-15 23:59 | disposition home or self-care (01) ==
PROVIDERS: PCP Nurse Practitioner Family; Visit Provider Nurse Practitioner Family
DX: M46.1 Sacroiliitis, not elsewhere classified (principal); Z79.899 Other long term (current) drug therapy
CPT/HCPCS: 99212; G0463

== ENCOUNTER 2025-02-14 19:35 | Emergency (ER) | payer OTHER, SELFPAY ==
[2025-02-14 19:53] VITALS: BP 132/78; PULSE 104; RESP 20; TEMP 36.8; O2SAT 100; BMI 29.5
--- OUTSIDE RECORDS SUMMARY | 2025-02-14 20:02 | XMS_ITS | Clinical Summary ---
Author Organization Healthcare Address [address] [place] [address] Care Team Providers Care Ramp Manager Name Role Phone Campos Obregon MD Unavailable Pcp, No Primary Care Provider Unavailabl e [...] Department Care Team Description 12/18/[address] [facility] General Surgery [address] [place] [address] Campos Obregon MD HCN Clinical Concern/Question 12/04/2024 Orders Only [facility] [address] [place] [address] Campos Obregon MD 12/01/[address] [facility] General Surgery [address] [place] [address] Campos Obregon MD from Last 3 Months [...] (2 - Td or Tdap) 07/06/2016 07/06/2006 [id number] Vaccine (3 - Pfizer risk series) 06/11/2021 [...] Lori Gastelum CRNA CRNA Hansberry, Jolynn Endo Workforce Management Manager Jolene Aguila RN Endo Nurse Campos Obregon [...] of bowel preparation was evaluated using the [place] Bowel Preparation Scale with scores of: left [...] Melo, RN Endo Nurse Ying Mena Endo Workforce Management Manager Campos Obregon MD Proceduralist Marshall De Jesus [...] of bowel preparation was evaluated using the [place] Bowel Preparation Scale with scores of: right [...] Recently Relevant to Health Maintenance Care Teams Ramp Manager Relationship Specialty Start Date End Date Pcp, No [address] [place] [address] PCP - General Family Medicine 08/02/23 Campos Obregon MD [address] [facility] [address] [place] [address] Surgeon Colon and Rectal Surgery 03/17/22
--- OUTSIDE RECORDS SUMMARY | 2025-02-14 20:02 | XMS_ITS | Encounter Summary ---
Author Organization Healthcare Address [address] [place] [address] Care Team Providers Care Certified Ethical Hacker Name Role Phone Campos Obregon MD Unavailable [phone] Pcp, No Primary Care Provider Unavailabl e Reason for Visit * Reason Onset Date Comments HCN Clinical Concern/Question 12/18/2024 Encounter Details Date Type Department Care Team (Late st Contact Info) Description 12/18/[address] [facility] General Surgery [address] [place] [address] Campos Obregon MD [address] [facility] [address] [place] [address] HCN Clinical Concern/Question Social History [...] to no insurance Best contact number: Other: [phone] Optimal time of day to reach caller: ANYTIME Additional comments/information from caller: None Note: Please do not reply to this message. Follow-up communication and further actions as a result of this message need to be communicated with the patient directly, if the patient is not active onMyChart. If the patient is active on MyChart, they will receive notification of the communication/outcome via [employer]. documented in this encounter Plan of Treatment [...] documented as of this encounter Care Teams Certified Ethical Hacker Relationship Specialty Start Date End Date Pcp, [place] [address] PCP - General Family Medicine 08/02/23 Campos Obregon MD [address] [place] [address] Surgeon Colon and Rectal Surgery 03/17/22 documented as of this encounter
--- NOTE | 2025-02-14 20:42 | HMH.EDGENADL ---
Discharge Plan Disposition Patient Disposition: Home, Self-Care Condition: Good Prescriptions Prescriptions: New methocarbamol 500 mg tablet 500 mg PO BID Qty: 30 0RF lidocaine 5 % adhesive patch,medicated 1 patch topical DAILY Qty: 15 0RF Rx Instructions: leave on most painful area for up to 12 hrs No Action alprazolam 0.5 mg tablet 0.5 mg PO DAILY Qty: 30 2RF Nexplanon 68 mg implant subdermal benzonatate 100 mg capsule 100 mg PO BID PRN (Reason: cough) Qty: 20 0RF ketoconazole 2 % cream 1 applic topical BID Qty: 30 0RF atorvastatin 10 mg tablet See Rx Instructions .ROUTE .COMPLEX Qty: 90 3RF Dose Instruction: TAKE ONE TABLET BY MOUTH ONCE A DAY Rx Instructions: TAKE ONE TABLET BY MOUTH ONCE A DAY bupropion HCl 150 mg tablet extended release 24 hr 150 mg PO DAILY Qty: 90 2RF raloxifene 60 mg tablet See Rx Instructions .ROUTE .COMPLEX Qty: 30 5RF Dose Instruction: TAKE ONE TABLET BY MOUTH ONCE A DAY Rx Instructions: TAKE ONE TABLET BY MOUTH ONCE A DAY meclizine 25 mg tablet 25 mg PO BID PRN (Reason: dizziness) Qty: 20 0RF Referrals Follow up/Referrals: Reynaldo Saldivar APRN [Primary Care Provider, Family Practice] - See instructions Activity Restrictions/Add. Instructions Additional Instructions/Restrictions: I would like you to take Tylenol and Motrin as well as the muscle relaxer and lidocaine patch before bed alleviate your symptoms in the morning. Try to stretch the muscles in your neck daily to help with musculoskeletal symptoms. You can use heat and ice as needed. Follow-up with your primary care provider or return to the emergency department for any acute or worsening symptoms such as inability to swallow, troubles breathing or any other acute concerns. Clinical Impressions Clinical Impression: Musculoskeletal pain Instructions Patient Instructions: DI for Neck Pain Print Language Print Language: Serbian Discharge ED Provider: Pennie Orr Adult [facility] General Chief complaint: Neck Pain/Injury Stated complaint: neck pain,sore throat Time Seen by Provider: 02/14/25 20:42 Mode of Arrival: Ambulatory Source of Information: Patient Description of Symptoms (Recalled from ER Triage Doc. by RN): patient presents to the ED for right sided neck pain. Patient states its been going on for a while . range of motion if good for her. patinet also complains of sore throat, seen today at [facility] for it adn tested negative. History of Present Illness HPI narrative: Patient is a 50-year-old female who is presenting to the emergency department with right sided neck pain for the last couple weeks. Patient states that her pain is worse when she wakes up in the morning. Patient states that she was seen by urgent care and she had a strep screen and a respiratory swab that was negative. She does have a mild sore throat but has had no difficulty swallowing, no difficulties breathing. Patient states that she has had otherwise no new physical activities. Patient has not had any fevers. Patient has not had any swelling to the right side of the neck. Patient states that the pain is throbbing in nature worse when waking up in the morning. Patient states that she has not tried any significant medications at home for pain relief. Patient has not had any trauma. Related Data Home Medications ?Medication ?Instructions ?Recorded ?Confirmed etonogestrel 68 mg subdermal subdermal 02/14/25 02/14/25 implant (Nexplanon) Previous Rx's ?Medication ?Instructions ?Recorded atorvastatin 10 mg tablet See Rx Instructions .Route 03/07/24 .COMPLEX #90 tabs bupropion HCl 150 mg 24 hr tablet, 150 mg PO DAILY #90 tabs 06/20/24 extended release ketoconazole 2 % topical cream 1 applic topical BID #30 grams 07/25/24 meclizine 25 mg tablet 25 mg PO BID PRN dizziness #20 tabs 12/30/24 raloxifene 60 mg tablet See Rx Instructions .Route 02/05/25 .COMPLEX #30 tabs alprazolam 0.5 mg tablet 0.5 mg PO DAILY #30 tabs 02/13/25 benzonatate 100 mg capsule 100 mg PO BID PRN cough #20 caps 02/14/25 lidocaine 5 % topical patch 1 patch topical DAILY #15 ea 02/14/25 methocarbamol 500 mg tablet 500 mg PO BID #30 tabs 02/14/25 Allergies Allergy/AdvReac Type Severity Reaction Status Date / Time cefdinir AdvReac Unknown gi upset Verified 02/14/25 18:03 [facility] Disclaimer: The information contained in this section may have been updated after the patient was seen, as this information can be updated by other users. Medical History alf use of drug Recurrent major depression resistant to treatment Colon cancer Anxiety Cancer HLD (hyperlipidemia) TAM (dyspnea on exertion) Surgical History History of heart surgery History of back surgery History of section History of cholecystectomy Family History Other No significant family history Social History Smoking Status: Never smoker second hand exposure: No alcohol intake: never counseling provided: none substance use type: denies use current occupational status: other Travel in the last 8 weeks?: None household members: none housing: apartment lives independently: Yes marital status: single number of children: 1 number of grandchildren: 0 education level: high school current occupation: [employer] current occupational exposures/hazards: No caffeine: No working smoke detector in home: Yes fire extinguisher in home: No carbon monox detector in home: No firearms in home: No do you feel safe at home: Yes victim of physical abuse: No victim of emotional abuse: No victim of sexual abuse: No would you like helpful sources: No Have you lived/traveled outside US in past 30 days?: No Contact w/someone who lives/traveled outside US past 30 days?: No Exposure to someone with infectious disease in past 14 days?: No Do you have a fever (greater than 100.4 F or 38 C)?: No Have you tested positive for COVID-19?: No Exposed to someone with COVID-19 in past 14 days?: No Do you have a sore throat?: No Do you have a cough?: No Do you have any weakness?: No Do you have any diarrhea?: No Are you experiencing any unusual bleeding?: No Do you have any muscle aches/pain?: No Do you have any abdominal pain?: No Are you experiencing loss of taste or smell?: No Other Medical History Have you received the Flu Vaccine for this season: Yes Have you received the Pneumonia Vaccine: No ROS Obtained: Yes All systems reviewed & no additional complaints except as documented and Yes Systems reviewed as appropriate & no additional complaints except as documented Physical Exam General General appearance: alert and in no apparent distress Head Head exam: atraumatic, normocephalic and normal inspection Eye Eye exam: Present normal appearance, PERRL and EOMI; Absent scleral icterus ENT ENT exam: Present normal exam and normal external ear exam Neck Neck exam: Present normal inspection, full ROM and other (Trapezius tenderness on the right, mild paraspinal tenderness, no midline cervical spine tenderness); Absent meningismus or lymphadenopathy Chest Chest inspection: Present normal inspection and symmetric chest wall rise Respiratory Respiratory exam: Present normal lung sounds bilaterally; Absent respiratory distress or wheezes Cardiovascular Cardiovascular exam: Present regular rate, normal rhythm and normal heart sounds Abdominal Exam Abdominal exam: Present soft and distention; Absent tenderness, guarding or rebound Extremities Exam Extremities exam: Present normal inspection and full ROM Back Exam Back exam: Present normal inspection and full ROM Neurological Exam Neurological exam: Present alert and oriented X3 Psychiatric Psychiatric exam: Present normal affect and normal mood Skin Skin exam: Present warm and dry Medical Decision Making Medical Records Medical records reviewed: Yes I reviewed the patient's medical records. Screening: Per USPSTF and CDC recommendations, given the prevalence of disease in our region, it is our hospital?s policy to screen for HIV and viral Hepatitis for all patients aged 18 and over and those with ongoing risk factors. Jason Inquiry Pt receiving controlled substance: No Vital Signs: 02/14/25 19:53 02/14/25 21:38 Temperature 98.2 F 98.3 F Temperature Source Temporal Artery Scan Temporal Artery Scan Pulse Rate 75 Pulse Rate [Right Radial] 104 H Respiratory Rate 20 18 Blood Pressure 121/84 Blood Pressure [Right Arm] 132/78 Blood Pressure Mean [Right Arm] 96 Blood Pressure Source [Right Arm] Automatic Cuff Blood Pressure Position [Right Arm] Sitting 02 Sat by Pulse Oximetry 100 Oxygen Delivery Method Room Air Room Air Orders (Tests/Meds): ED MEDICATIONS Discontinued Medications Generic Name Dose Route Start Last Admin Trade Name Freq PRN Reason Stop Dose Admin Acetaminophen 1,000 mg 02/14/25 20:59 02/14/25 21:29 Acetaminophen 500mg Tab PO 02/14/25 21:00 1,000 mg ONCE ONE Administration Ketorolac Tromethamine 30 mg 02/14/25 20:59 02/14/25 21:30 Ketorolac 30mg/Ml Vial IM 02/14/25 21:00 30 mg ONCE ONE Administration Lidocaine 1 each 02/14/25 20:59 02/14/25 21:30 Lidocaine 5% Transdermal Patch TD 02/14/25 21:00 1 each ONCE ONE Administration Methocarbamol 500 mg 02/14/25 20:59 02/14/25 21:30 Methocarbamol 500mg Tablet PO 02/14/25 21:00 500 mg ONCE ONE Administration ORDERS Category Date Time Status Strep Screen Confirmation Routine Micro 02/14/25 18:05 Completed Medical Decision Narrative: Patient is an otherwise healthy 50-year-old female who presented to the emergency department with right-sided neck pain. On arrival, patient was hemodynamically stable with unremarkable vital signs. Differential includes but not limited to: Musculoskeletal sprain versus strain, lymphadenopathy, viral pharyngitis, strep pharyngitis, amongst others. On exam, patient had trapezius tenderness, patient had very mild paraspinal tenderness. Patient had no midline cervical spine tenderness. Patient had full range of motion of her neck. Patient had no lymphadenopathy. Patient had no facial swelling. Patient's oropharynx was unremarkable. Given the patient's symptoms are worse in the morning musculoskeletal seems less likely given that patient's pain resolved. A spinal and trapezius administered. Patient already had a respiratory swab and strep screen negative at the urgent care center. Patient was given symptomatic relief in the emergency department the patient was sent home with similar. Patient was advised to continue to stretch, use heat and ice as needed. Return precautions were discussed for any development of neurologic symptoms numbness weakness difficulty moving her neck or if she had any other acute concerns. Patient was otherwise discharged home in stable condition. Patient had no trauma, no midline cervical spine tenderness therefore imaging was not felt to be indicated at this time. Critical Care Critical Care Time Critical Care Time: No
[2025-02-14] MEDS: ACETAMINOPHEN 500MG TAB 1000 MG PO (21:29)
[2025-02-14] MEDS: KETOROLAC 30MG/ML VIAL 30 MG IM (21:30)
[2025-02-14] MEDS: METHOCARBAMOL 500MG TABLET 500 MG PO (21:30)
[2025-02-14] MEDS: LIDOCAINE 5% TRANSDERMAL PATCH 1 EACH TD (21:30)
[2025-02-14 21:38] VITALS: BP 121/84; PULSE 75; RESP 18; TEMP 36.8; O2SAT 98
== END 2025-02-14 21:37 | disposition home or self-care (01) ==
PROVIDERS: Emergency Provider Student in an Organized Health Care Education/Training Program; PCP Nurse Practitioner Family
DX: M54.2 Cervicalgia (principal); R07.0 Pain in throat
CPT/HCPCS: 96372; 99283; J1885

== ENCOUNTER 2025-02-17 17:23 | Emergency (ER) | payer OTHER, SELFPAY ==
[2025-02-17 18:50] VITALS: BP 126/78; PULSE 94; RESP 16; TEMP 37.1; O2SAT 97; BMI 29.5
--- OUTSIDE RECORDS SUMMARY | 2025-02-17 18:58 | XMS_ITS | Clinical Summary ---
Author Organization Healthcare Address [address] [place] [address] Care Team Providers Care Debt Management Counselor Name Role Phone Campos Obregon MD Unavailable [phone] Pcp, No Primary Care Provider Unavailabl [...] Type Department Care Team Description 12/18/2024 Telephone [facility] General Surgery [address], [address] [place] [address] Campos Obregon MD HCN Clinical Concern/Question 12/04/2024 Orders Only [facility] [address] [place] [address] Campos Obregon MD 12/01/2024 Telephone [facility] General Surgery [address], [address] [place] [address] Campos Obregon MD from Last 3 Months [...] (2 - Td or Tdap) 07/06/2016 07/06/2006 [id number] Vaccine (3 - Pfizer risk series) 06/11/2021 [...] Lori Gastelum CRNA CRNA Hansberry, Jolynn Endo Abap Developer Jolene Aguila RN Endo Nurse Campos Obregon [...] of bowel preparation was evaluated using the [place] Bowel Preparation Scale with scores of: left [...] Melo, RN Endo Nurse Ying Mena Endo Abap Developer Campos Obregon MD Proceduralist Marshall De Jesus [...] of bowel preparation was evaluated using the [place] Bowel Preparation Scale with scores of: right [...] Recently Relevant to Health Maintenance Care Teams Debt Management Counselor Relationship Specialty Start Date End Date Pcp, No [address] [place] [address] PCP - General Family Medicine 08/02/23 Campos Obregon MD [address] [facility] [address] [place] [address] Surgeon Colon and Rectal Surgery 03/17/22
[2025-02-17 19:42] LABS: Coronavirus 19, PCR Not Detected (NotDetected); Influenza A, PCR Not Detected (NotDetected); Influenza B, PCR Not Detected (NotDetected)
[2025-02-17] MEDS: ACETAMINOPHEN 500MG TAB 1000 MG PO (19:43)
[2025-02-17] MEDS: guaiFENesin 200MG/10ML SYRUP UDC 200 MG PO (19:43)
[2025-02-17 19:49] LABS: Strep Scrn Group A (Rapid) Negative (Negative)
--- NOTE | 2025-02-17 20:06 | ED_ITS ---
<Statement entered by Pennie Orr DO - 02/18/25 01:06> I was consulted by the NORMAN, and we discussed the complexity of problems being addressed. I approve the treatment and management plan for this patient's care in the emergency department, thus performing a substantial portion of the medical decision making. Pennie Orr DO Discharge Plan Disposition Patient Disposition: Home, Self-Care Prescriptions Prescriptions: No Action alprazolam 0.5 mg tablet 0.5 mg PO DAILY Qty: 30 2RF Nexplanon 68 mg implant subdermal benzonatate 100 mg capsule 100 mg PO BID PRN (Reason: cough) Qty: 20 0RF ketoconazole 2 % cream 1 applic topical BID Qty: 30 0RF atorvastatin 10 mg tablet See Rx Instructions .ROUTE .COMPLEX Qty: 90 3RF Dose Instruction: TAKE ONE TABLET BY MOUTH ONCE A DAY Rx Instructions: TAKE ONE TABLET BY MOUTH ONCE A DAY bupropion HCl 150 mg tablet extended release 24 hr 150 mg PO DAILY Qty: 90 2RF raloxifene 60 mg tablet See Rx Instructions .ROUTE .COMPLEX Qty: 30 5RF Dose Instruction: TAKE ONE TABLET BY MOUTH ONCE A DAY Rx Instructions: TAKE ONE TABLET BY MOUTH ONCE A DAY meclizine 25 mg tablet 25 mg PO BID PRN (Reason: dizziness) Qty: 20 0RF methocarbamol 500 mg tablet 500 mg PO BID Qty: 30 0RF lidocaine 5 % adhesive patch,medicated 1 patch topical DAILY Qty: 15 0RF Rx Instructions: leave on most painful area for up to 12 hrs Referrals Follow up/Referrals: Reynaldo Saldivar APRN [Primary Care Provider, Family Practice] - See instructions Activity Restrictions/Add. Instructions Additional Instructions/Restrictions: Today you were evaluated in the emergency department and diagnosed with a viral URI. Your strep was negative. Your COVID and influenza were negative. Please use anti-mmk-mnnokue Chloraseptic spray, you can use warm salt water gargles, please follow-up with your PCP within 1 week. Please return to the ED for worsening of condition. Clinical Impressions Clinical Impression: Viral upper respiratory infection, Hoarse Instructions Patient Instructions: DI for Viral Upper Respiratory Infection -- Adult Print Language Print Language: [place]i Discharge ED Provider: Pennie Orr General Adult HPI General Chief complaint: Sore Throat Stated complaint: cough, sore throat, losing voice Time Seen by Provider: 02/17/25 19:01 Mode of Arrival: Ambulatory Source of Information: Patient Description of Symptoms (Recalled from ER Triage Doc. by RN): Pt presents for evaluation of cough and sore throat that began approx 3 days ago with at home covid test - and recent strep swab at PCP -. Pt reports associated chills with no temp check at home. History of Present Illness HPI narrative: patient is a 50-year-old female PMHx vertigo, HLD who presents to the ED for complaints of sore throat, congestion, hoarseness. Patient states the symptoms has been present for several days, she has been evaluated for this before, has been seen at [facility] and tested negative for COVID and influenza. Patient has taken Advil, which has provided her with minimal symptomatic relief. Related Data Home Medications ?Medication ?Instructions ?Recorded ?Confirmed etonogestrel 68 mg subdermal subdermal 02/14/25 implant (Nexplanon) Previous Rx's ?Medication ?Instructions ?Recorded atorvastatin 10 mg tablet See Rx Instructions .Route 1 .COMPLEX #90 tabs bupropion HCl 150 mg 24 hr tablet, 150 mg PO DAILY #90 tabs 06/20/24 extended release ketoconazole 2 % topical cream 1 applic topical BID #3 0 grams 07/25/24 meclizine 25 mg tablet 25 mg PO BID PRN dizziness # 20 tabs 12/30/24 raloxifene 60 mg tablet See Rx Instructions .Route 0 02/05/25 .COMPLEX #30 tabs alprazolam 0.5 mg tablet 0.5 mg PO DAILY #30 tabs benzonatate 100 mg capsule 100 mg PO BID PRN cough #20 caps 02/14/25 lidocaine 5 % topical patch 1 patch topical DAILY #15 ea 02/14/25 methocarbamol 500 mg tablet 500 mg PO BID #30 tabs Allergies Allergy/AdvReac Type Severity Reaction Status Date / Time cefdinir AdvReac Unknown gi upset Verified 02/14/25 18:03 [facility] Disclaimer: The information contained in this section may have been updated after the patient was seen, as this information can be updated by other users. Medical History USP use of drug Recurrent major depression resistant to treatment Colon cancer Anxiety Cancer HLD (hyperlipidemia) TAM (dyspnea on exertion) Surgical History History of heart surgery History of back surgery History of section History of cholecystectomy Family History Other No significant family history Social History Smoking Status: Never smoker second hand exposure: No alcohol intake: never counseling provided: none substance use type: denies use current occupational status: other Travel in the last 8 weeks?: None household members: none housing: apartment lives independently: Yes marital status: single number of children: 1 number of grandchildren: 0 education level: high school current occupation: [employer] current occupational exposures/hazards: No caffeine: No working smoke detector in home: Yes fire extinguisher in home: No carbon monox detector in home: No firearms in home: No do you feel safe at home: Yes victim of physical abuse: No victim of emotional abuse: No victim of sexual abuse: No would you like helpful sources: No Have you lived/traveled outside [place] in past 30 days?: No Contact w/someone who lives/traveled outside US past 30 days?: No Exposure to someone with infectious disease in past 14 days?: No Do you have a fever (greater than 100.4 F or 38 C)?: No Have you tested positive for COVID-19?: No Exposed to someone with COVID-19 in past 14 days?: No Do you have a sore throat?: Yes Do you have a cough?: Yes Do you have any weakness?: Yes Do you have any diarrhea?: No Are you experiencing any unusual bleeding?: No Do you have any muscle aches/pain?: No Do you have any abdominal pain?: No Are you experiencing loss of taste or smell?: No Other Medical History Have you received the Flu Vaccine for this season: Yes Have you received the Pneumonia Vaccine: No ROS Obtained: Yes Systems reviewed as appropriate & no additional complaints except as documented Physical Exam General General appearance: alert Head Head exam: atraumatic Eye Eye exam: Present PERRL and EOMI Neck Neck exam: Present full ROM and tenderness (Anterior cervical lymphadenopathy tenderness ); Absent meningismus Respiratory Respiratory exam: Present normal lung sounds bilaterally Cardiovascular Cardiovascular exam: Present regular rate Abdominal Exam Abdominal exam: Present soft Extremities Exam Extremities exam: Present full ROM Back Exam Back exam: Present full ROM Neurological Exam Neurological exam: Present alert Skin Skin exam: Present dry Medical Decision Making Medical Records Screening: Per USPSTF and CDC recommendations, given the prevalence of disease in our region, it is our hospital?s policy to screen for HIV and viral Hepatitis for all patients aged 18 and over and those with ongoing risk factors. Jason Inquiry Pt receiving controlled substance: No Vital Signs: 02/17/25 18:50 02/17/25 21:05 Temperature 98.8 F 99.1 F Temperature Source Temporal Artery Scan Pulse Rate 88 Pulse Rate [Radial] 94 H Respiratory Rate 16 16 Blood Pressure 118/79 Blood Pressure [Right Arm] 126/78 Blood Pressure Mean [Right Arm] 94 Blood Pressure Position Sitting Blood Pressure Position [Right Arm] Sitting 02 Sat by Pulse Oximetry 97 Oxygen Delivery Method Room Air Room Air Lab Data Lab Results 02/17/25 19:31: SARS-CoV-2 (PCR) Not detected, Influenza A Untype (PCR) Not detected, Influenza Type B (PCR) Not detected, Group A Strep Rapid Negative Orders (Tests/Meds): ED MEDICATIONS Discontinued Medications Generic Name Dose Route Start Last Admin Trade Name Mitulq PRN Reason Stop Dose Admin Acetaminophen 1,000 mg 02/17/25 19:11 02/17/25 19:43 Acetaminophen 500mg Tab PO 02/17/25 19:12 1,000 mg ONCE ONE Administration Guaifenesin 200 mg 02/17/25 19:09 02/17/25 19:43 Guaifenesin 200mg/10ml Syrup Udc PO 02/17/25 19:10 200 mg ONCE ONE Administration ORDERS Category Date Time Status Rapid PCR Covid and Flu A/B Stat Lab 02/17/25 19:31 Completed Rapid Strep Scrn Group A [Strep Scrn Group A (Rapid)] Lab 02/17/25 19:31 Completed Stat Strep Screen Confirmation Stat Micro 02/17/25 19:31 Received Medical Decision Narrative: In summary, patient is a 50-year-old female PMHx vertigo, HLD who presents to the ED for complaints of sore throat, congestion, hoarseness. Patient states the symptoms has been present for several days, she has been evaluated for this before, has been seen at [facility] and tested negative for COVID and influenza. Patient has taken Advil, which has provided her with minimal symptomatic relief. Denies additional complaints. Upon initial evaluation patient is alert, oriented and cooperative. She is stable. She has a hoarse voice, tender cervical anterior lymphadenopathy. Denies fever, headache, visual disturbances, posterior neck pain, chest pain, shortness of breath. Differential diagnosis include viral illness, infectious process, strep, laryngitis, among others. Discussed with patient we will proceed with strep, COVID, influenza, acetaminophen. COVID, influenza negative. Strep swab negative. Upon reassessment, patient states her condition has improved. Discussed viral URI. Advised her to use warm salt water gargles and Chloraseptic throat spray and lozenges. We discussed follow-up. Return to the ED for any worsening of condition. Critical Care Critical Care Time Critical Care Time: No
[2025-02-17 21:05] VITALS: BP 118/79; PULSE 88; RESP 16; TEMP 37.3; O2SAT 97
== END 2025-02-17 21:06 | disposition home or self-care (01) ==
PROVIDERS: Nurse Practitioner; Emergency Provider Student in an Organized Health Care Education/Training Program; PCP Nurse Practitioner Family
DX: R49.0 Dysphonia (principal); R07.0 Pain in throat; J06.9 Acute upper respiratory infection, unspecified; B34.9 Viral infection, unspecified
CPT/HCPCS: 87430; 87636; 99283

== ENCOUNTER 2025-03-06 14:44 | Day surgery (SDC) | payer OTHER, SELFPAY ==
[2025-03-06 14:48] VITALS: BP 117/75; PULSE 96; RESP 16; O2SAT 95; BMI 28.8
--- NOTE | 2025-03-06 15:15 | P.PCN_ITS ---
Procedure Date: 03/06/25 Time: 15:15 Anesthesiologist:: Grayson Borrgeo CRNA Complications:: None Pre-procedure Diagnosis:: Bilateral sacroiliitis Post-procedure Diagnosis:: Same Indications for Procedure:: Patient is a very pleasant 50-year-old female who comes our clinic today for jorden ateral sacroiliac joint injections cortisone local anesthetic. Patient describes low lumbar back pain off the midline bilaterally. Bilateral posterior hip pain. Difficulty transitioning from sitting to standing. Difficulty with ambulation. She rates her pain 7/10. Procedure Details:: Procedure: Bilateral sacroiliac joint injections under fluoroscopy Informed consent was obtained and the risks and benefits of the procedure were explained to the patient.~ The patient was taken to the procedure room and noninvasive monitors were placed including a noninvasive blood pressure cuff and pulse oximeter.~ The patient was placed prone on the procedure table. Both hips were cleansed using Betadine as a cleansing solution. C-arm fluoroscopy was used to view the right sacroiliac joint.~ The skin and subcutaneous tissues were anesthetized using lidocaine 1.5% and a 25-gauge needle.~ After this, a 22-gauge spinal needle was inserted under fluoroscopic guidance into the inferior aspect of the right sacroiliac joint.~ Omnipaque dye was injected and good spread was seen throughout the joint.~ After this, approximately 5 mL of bupivacaine, 0.25% and dexamethasone 5 mg was incrementally injected into the right sacroiliac joint. We then moved to the left sacroiliac joint.~ The skin and subcutaneous tissues were anesthetized using lidocaine 1.5% and a 25-gauge needle.~ After this, a 22- gauge spinal needle was inserted under fluoroscopic guidance into the inferior aspect of the left sacroiliac joint.~ Omnipaque dye was injected and good spread was seen throughout the joint. After this, approximately 5 mL of bupivacaine, 0.25% and dexamethasone 5 mg was incrementally injected into the left sacroiliac joint.~ The patient tolerated the procedure well with no complications. The patient was observed in the Pain Clinic and then was discharged home neurologically intact. Plan and Disposition:: Patient was discharged without incident.
[2025-03-06 15:22] VITALS: BP 109/72; PULSE 93; RESP 16; O2SAT 98
[2025-03-06] MEDS: BUPIVACAINE 0.25% 10ML INJ 25 MG IJ (15:41)
[2025-03-06] MEDS: DEXAMETHASONE 10MG/ML 1ML VIAL 10 MG (15:41)
[2025-03-06 15:43] VITALS: BP 127/71; PULSE 100; RESP 18; O2SAT 99
[2025-03-06 15:44] VITALS: BP 127/71; PULSE 100; RESP 18; O2SAT 99
== END 2025-03-06 15:23 | disposition home or self-care (01) ==
PROVIDERS: PCP Nurse Practitioner Family; Visit Provider Nurse Anesthetist, Certified Registered
DX: M46.1 Sacroiliitis, not elsewhere classified (principal); F41.9 Anxiety disorder, unspecified; E78.5 Hyperlipidemia, unspecified; F33.9 Major depressive disorder, recurrent, unspecified; Z85.038 Personal history of other malignant neoplasm of large intestine; Z98.890 Other specified postprocedural states; Z88.0 Allergy status to penicillin; Z79.899 Other long term (current) drug therapy
CPT/HCPCS: 64450; J0665; J1100

== ENCOUNTER 2025-03-06 23:29 | Emergency (ER) | payer OTHER, SELFPAY ==
[2025-03-06 23:46] VITALS: BP 128/88; PULSE 121; RESP 20; TEMP 36.8; O2SAT 98; BMI 28.8
--- NOTE | 2025-03-06 23:57 | PC.NURSE ---
patient traige complete at this time. patient EKG done, patient sent back to the lobby until a treatment room becomes available. patient educated to let registration staff know if anything changes with her.
--- OUTSIDE RECORDS SUMMARY | 2025-03-06 23:58 | XMS_ITS | Clinical Summary ---
Author Organization Healthcare Address [address] [place] [address] Care Team Providers Care Head Waiter Name Role Phone Campos Obregon MD Unavailable [phone] Pcp, No Primary Care Provider Unavailabl [...] Type Department Care Team Description 12/18/2024 Telephone [facility] General Surgery [address] [place] [address] Campos Obregon MD [facility] Clinical Concern/Question 12/04/2024 Orders Only [facility] [address] [place] [address] Campos Obregon MD from Last 3 Months [...] (2 - Td or Tdap) 07/06/2016 07/06/2006 [id number] Vaccine (3 - Pfizer risk series) 06/11/2021 [...] Recommendations Await pathology results Indication Rectal cancer (CMS/[facility]) Medications See anesthesia record for anesthesia administered medications. Staff Staff Role Lori Gastelum CRNA CRNA [place], Jolynn Endo Office Engineer Jolene Aguila RN Endo Nurse Campos Obregon [...] of bowel preparation was evaluated using the [place] Bowel Preparation Scale with scores of: left [...] Melo RN Endo Nurse Ying Mena Endo Office Engineer Campos Obregon MD Proceduralist Marshall De Jesus, Resident - Assisting Karen Dill RN Endo [...] of bowel preparation was evaluated using the [place] Bowel Preparation Scale with scores of: right [...] Recently Relevant to Health Maintenance Care Teams Head Waiter Relationship Specialty Start Date End Date Pcp, Leticia [address] [place] [address] PCP - General Family Medicine 08/02/23 Campos Obregon MD [address] [facility] [address] [place] [address] Surgeon Colon and Rectal Surgery 03/17/22
[2025-03-07] VITALS (11 sets, daily range): BP systolic 104–124; BP diastolic 64–90; PULSE 96–108; RESP 14–22; TEMP 36.8; O2SAT 96–100
--- NOTE | 2025-03-07 00:20 | XR_ITS ---
PROCEDURE INFORMATION: Exam: XR Chest Exam date and time: 03/07/2025 12:21 AM Age: 50 years old Clinical indication: Other: Palpitations TECHNIQUE: Imaging protocol: Radiologic exam of the chest. Views: 2 views. COMPARISON: CR XR CHEST PORTABLE 12/30/2024 2:23 PM FINDINGS: Lungs: Unremarkable. No consolidation. Pleural spaces: Unremarkable. No pleural effusion. No pneumothorax. Heart/Mediastinum: Unremarkable. No cardiomegaly. Bones/joints: Unremarkable. IMPRESSION: No acute findings.
[2025-03-07 00:35] LABS: Hematocrit 41.3 % (37.0-47.0); Hemoglobin 14.2 g/dL (12.2-16.2); Immature Granulocytes % 0.5 %; Mean Corpuscular HGB Conc 34.4 g/dL (31.8-35.4); Mean Corpuscular Hemoglobin 31.6 pg (27.0-31.2); Mean Corpuscular Volume 91.8 fl (81-99); Nucleated Red Blood Cells % 0 %; Platelet Count 301 K/mm3 (142-424); Red Blood Count 4.50 M/mm3 (4.20-5.40); Red Cell Distribution Width-SD 41.1 fL; White Blood Count 6.6 K/mm3 (4.8-10.8)
[2025-03-07] MEDS: LACTATED RINGERS 1000ML 1,000 ML 999 ML IV (00:36)
[2025-03-07 00:40] LABS: VBG HCO3 22.3 mmol/L (23-30); VBG PCO2 35.3 mmol/L (35-51); VBG PH 7.42 mmol/L (7.31-7.41); VBG PO2 45.7 mmol/L (28-40)
[2025-03-07 00:41] LABS: Lactate Venous 3.5 mmol/L (0.4-2.0)
[2025-03-07 00:43] LABS: Alanine Aminotransferase 37 U/L (12-78); Albumin Level 4.5 g/dl (3.5-5.0); Albumin/Globulin Ratio 1.4 (1.1-1.8); Alkaline Phosphatase 111 U/L (38-126); Anion Gap 17.1 mEq/L (5-15); Aspartate Amino Transferase 38 U/L (14-36); Bilirubin,Total 0.5 mg/dl (0.2-1.3); Blood Urea Nitrogen 18 mg/dl (7-17); Calcium 9.6 mg/dl (8.4-10.2); Carbon Dioxide 21 mmol/L (22.0-30.0); Chloride 104 mmol/L (98-107); Creatinine Clearance Estimated 76 mL/min (50-200); Creatinine,Serum 0.80 mg/dl (0.52-1.04); Estimated Glomerular Filt Rate 77 ml/min (>60); GFR (African American) 93 ML/MIN (>60); Globulin 3.2 g/dL (1.3-3.2); Glucose 269 mg/dl (74-100); Potassium 4.1 mmoL/L (3.5-5.1); Sodium 138 mmol/L (136-145); Total Protein,Serum 7.7 g/dl (6.3-8.2)
[2025-03-07 00:47] LABS: D-Dimer 0.49 ug/mL (0.0-0.5)
[2025-03-07 00:56] LABS: NT Pro Brain Natriuretic Pep. 40.0 pg/mL (0-125); Troponin I < 0.01 ng/ml (0.00-0.034)
[2025-03-07 00:57] LABS: RBC Morphology Normal; Total Cells Counted 100
[2025-03-07 03:10] LABS: Troponin I < 0.01 ng/ml (0.00-0.034)
--- NOTE | 2025-03-07 03:39 | HMH.EDGENADL ---
Discharge Plan Disposition Patient Disposition: Home, Self-Care Condition: Good Prescriptions Prescriptions: No Action alprazolam 0.5 mg tablet 0.5 mg PO DAILY Qty: 30 2RF Nexplanon 68 mg implant 68 mg subdermal . benzonatate 100 mg capsule 100 mg PO BID PRN (Reason: cough) Qty: 20 0RF ketoconazole 2 % cream 1 applic topical BID Qty: 30 0RF atorvastatin 10 mg tablet See Rx Instructions .ROUTE .COMPLEX Qty: 90 3RF Dose Instruction: TAKE ONE TABLET BY MOUTH ONCE A DAY Rx Instructions: TAKE ONE TABLET BY MOUTH ONCE A DAY bupropion HCl 150 mg tablet extended release 24 hr 150 mg PO DAILY Qty: 90 2RF raloxifene 60 mg tablet See Rx Instructions .ROUTE .COMPLEX Qty: 30 5RF Dose Instruction: TAKE ONE TABLET BY MOUTH ONCE A DAY Rx Instructions: TAKE ONE TABLET BY MOUTH ONCE A DAY meclizine 25 mg tablet 25 mg PO BID PRN (Reason: dizziness) Qty: 20 0RF methocarbamol 500 mg tablet 500 mg PO BID Qty: 30 0RF lidocaine 5 % adhesive patch,medicated 1 patch topical DAILY Qty: 15 0RF Rx Instructions: leave on most painful area for up to 12 hrs Referrals Follow up/Referrals: Reynaldo Saldivar APRN [Primary Care Provider, Family Practice] - See instructions Activity Restrictions/Add. Instructions Additional Instructions/Restrictions: You were evaluated in the ER and are believed to be appropriate for discharge at this time. Drink plenty of fluids to stay hydrated. Continue taking any home medications as previously prescribed. Follow-up with cardiology this morning 03/07/2025 at 9 AM. Also make an appointment with your primary care doctor for reevaluation in 2 to 3 days. Return to the ER with any new, worsening, or otherwise concerning symptoms. Clinical Impressions Clinical Impression: Tachycardia Stand Alone Forms Stand Alone Forms: Work/School Release Print Language Print Language: Polish Discharge ED Provider: Komal Harp Adult [facility] General Chief complaint: Arrhythmia/Palpitations Stated complaint: lightheaded, high heart rate Time Seen by Provider: 03/07/25 00:20 Mode of Arrival: Ambulatory Source of Information: Patient Description of Symptoms (Recalled from ER Triage Doc. by RN): patient here for a reaction to injections that she got today with pain mamagement here. patient stated she only takes one normally and today they did 2 and her hear has been racing ever since . History of Present Illness HPI narrative: 50-year-old female presents to the ER concerned with high heart rate and lightheadedness. Patient states she had a procedure with pain management today for injections. Review of records demonstrates she typically gets sacroiliac joint injections with anesthetic and steroid. She states typically they only do 1 side but today they did both sides and reports since that was completed her heart has been racing. Patient denies fevers or chills. She denies chest pain or difficulty breathing. She denies numbness, tingling, or weakness. Patient reports no headache. She states she has not taken any medications prior to arrival. No abdominal complaints, nausea, vomiting, or diarrhea. No dysuria or hematuria. No recent illness. No other complaints or concerns. Related Data Home Medications ?Medication ?Instructions ?Recorded ?Confirmed etonogestrel 68 mg subdermal 68 mg subdermal . 02/14/25 03/06/25 implant (Nexplanon) Previous Rx's ?Medication ?Instructions ?Recorded atorvastatin 10 mg tablet See Rx Instructions .Route 03/07/24 .COMPLEX #90 tabs bupropion HCl 150 mg 24 hr tablet, 150 mg PO DAILY #90 tabs 06/20/24 extended release ketoconazole 2 % topical cream 1 applic topical BID #30 grams 07/25/24 meclizine 25 mg tablet 25 mg PO BID PRN dizziness #20 tabs 12/30/24 raloxifene 60 mg tablet See Rx Instructions .Route 02/05/25 .COMPLEX #30 tabs alprazolam 0.5 mg tablet 0.5 mg PO DAILY #30 tabs 02/13/25 benzonatate 100 mg capsule 100 mg PO BID PRN cough #20 caps 02/14/25 lidocaine 5 % topical patch 1 patch topical DAILY #15 ea 02/14/25 methocarbamol 500 mg tablet 500 mg PO BID #30 tabs 02/14/25 Allergies Allergy/AdvReac Type Severity Reaction Status Date / Time cefdinir AdvReac Unknown gi upset Verified 02/14/25 18:03 [facility] Disclaimer: The information contained in this section may have been updated after the patient was seen, as this information can be updated by other users. Medical History senior care use of drug Recurrent major depression resistant to treatment Colon cancer Anxiety Cancer HLD (hyperlipidemia) TAM (dyspnea on exertion) Surgical History History of heart surgery History of back surgery History of section History of cholecystectomy Family History Other No significant family history Social History Smoking Status: Never smoker second hand exposure: No alcohol intake: never counseling provided: none substance use type: denies use current occupational status: other Travel in the last 8 weeks?: None household members: none housing: apartment lives independently: Yes marital status: single number of children: 1 number of grandchildren: 0 education level: high school current occupation: [employer] current occupational exposures/hazards: No caffeine: No working smoke detector in home: Yes fire extinguisher in home: No carbon monox detector in home: No firearms in home: No do you feel safe at home: Yes victim of physical abuse: No victim of emotional abuse: No victim of sexual abuse: No would you like helpful sources: No Have you lived/traveled outside [place] in past 30 days?: No Contact w/someone who lives/traveled outside US past 30 days?: No Exposure to someone with infectious disease in past 14 days?: No Do you have a fever (greater than 100.4 F or 38 C)?: No Have you tested positive for COVID-19?: No Exposed to someone with COVID-19 in past 14 days?: No Do you have a sore throat?: No Do you have a cough?: No Do you have any weakness?: No Do you have any diarrhea?: No Are you experiencing any unusual bleeding?: No Do you have any muscle aches/pain?: No Do you have any abdominal pain?: No Are you experiencing loss of taste or smell?: No Other Medical History Have you received the Flu Vaccine for this season: No Have you received the Pneumonia Vaccine: No ROS Obtained: Yes Systems reviewed as appropriate & no additional complaints except as documented Per HPI Physical Exam General General appearance: alert and in no apparent distress Head Head exam: atraumatic and normocephalic Eye Eye exam: Present PERRL and EOMI ENT ENT exam: Present mucous membranes moist Neck Neck exam: Present normal inspection and full ROM Chest Chest inspection: Present symmetric chest wall rise; Absent tenderness Respiratory Respiratory exam: Present normal lung sounds bilaterally; Absent respiratory distress, wheezes or stridor Cardiovascular Cardiovascular exam: Present normal rhythm and tachycardia Abdominal Exam Abdominal exam: Present soft; Absent distention, tenderness, guarding or rebound Extremities Exam Extremities exam: Present full ROM and other (SI injection sites well-appearing with Band-Aid covering); Absent tenderness, edema or joint swelling Back Exam Back exam: Absent CVA tenderness (R) or CVA tenderness (L) Neurological Exam Neurological exam: Present alert, oriented X3, CN II-XII intact and normal gait; Absent motor sensory deficit Psychiatric Psychiatric exam: Present normal affect and normal mood Skin Skin exam: Present warm and dry Medical Decision Making Medical Records Medical records reviewed: Yes I reviewed the patient's medical records. Screening: Per USPSTF and CDC recommendations, given the prevalence of disease in our region, it is our hospital?s policy to screen for HIV and viral Hepatitis for all patients aged 18 and over and those with ongoing risk factors. Jason Inquiry Pt receiving controlled substance: No Vital Signs: 03/06/25 23:46 03/07/25 01:00 03/07/25 01:30 Temperature 98.2 F Temperature Source Temporal Artery Scan Pulse Rate 105 H 105 H Pulse Rate [Orthostatic Lying] Pulse Rate [Orthostatic Sitting] Pulse Rate [Orthostatic Standing] Pulse Rate [Right Radial] 121 H Respiratory Rate 20 20 22 Blood Pressure 116/68 113/75 Blood Pressure [Orthostatic Lying Right Arm] Blood Pressure [Orthostatic Sitting] Blood Pressure [Orthostatic Standing] Blood Pressure [Right Arm] 128/88 Blood Pressure Mean 80 82 Blood Pressure Mean [Right Arm] 101 Blood Pressure Source [Right Arm] Automatic Cuff Blood Pressure Position [Right Arm] Sitting 02 Sat by Pulse Oximetry 98 100 100 Oxygen Delivery Method Room Air 03/07/25 02:00 03/07/25 02:05 03/07/25 02:06 Temperature Temperature Source Pulse Rate 107 H 102 H 108 H Pulse Rate [Orthostatic Lying] Pulse Rate [Orthostatic Sitting] Pulse Rate [Orthostatic Standing] Pulse Rate [Right Radial] Respiratory Rate 22 17 16 Blood Pressure 122/78 116/70 112/90 Blood Pressure [Orthostatic Lying Right Arm] Blood Pressure [Orthostatic Sitting] Blood Pressure [Orthostatic Standing] Blood Pressure [Right Arm] Blood Pressure Mean 92 85 94 Blood Pressure Mean [Right Arm] Blood Pressure Source [Right Arm] Blood Pressure Position [Right Arm] 02 Sat by Pulse Oximetry 96 98 98 Oxygen Delivery Method Room Air 03/07/25 02:10 03/07/25 02:11 03/07/25 02:11 Temperature Temperature Source Pulse Rate Pulse Rate [Orthostatic Lying] 102 H Pulse Rate [Orthostatic Sitting] 108 H Pulse Rate [Orthostatic Standing] 104 H Pulse Rate [Right Radial] Respiratory Rate Blood Pressure Blood Pressure [Orthostatic Lying Right Arm] 116/70 Blood Pressure [Orthostatic Sitting] 112/90 Blood Pressure [Orthostatic Standing] 104/75 L Blood Pressure [Right Arm] Blood Pressure Mean Blood Pressure Mean [Right Arm] Blood Pressure Source [Right Arm] Blood Pressure Position [Right Arm] 02 Sat by Pulse Oximetry Oxygen Delivery Method 03/07/25 02:30 03/07/25 03:00 03/07/25 03:30 Temperature Temperature Source Pulse Rate 101 H 99 H 96 H Pulse Rate [Orthostatic Lying] Pulse Rate [Orthostatic Sitting] Pulse Rate [Orthostatic Standing] Pulse Rate [Right Radial] Respiratory Rate 17 20 20 Blood Pressure 124/74 108/64 L 116/65 Blood Pressure [Orthostatic Lying Right Arm] Blood Pressure [Orthostatic Sitting] Blood Pressure [Orthostatic Standing] Blood Pressure [Right Arm] Blood Pressure Mean 85 78 78 Blood Pressure Mean [Right Arm] Blood Pressure Source [Right Arm] Blood Pressure Position [Right Arm] 02 Sat by Pulse Oximetry 97 97 97 Oxygen Delivery Method Lab Data Lab Results 03/07/25 00:27: WBC 6.6, RBC 4.50, Hgb 14.2, Hct 41.3, MCV 91.8, MCH 31.6 H, MCHC 34.4, RDW 12.2, Plt Count 301, MPV 10.4, Neut % (Auto) 91.7 H, Lymph % (Auto) 6.5 L, Bledsoe % (Auto) 1.1 L, Eos % (Auto) 0.0 L, Baso % (Auto) 0.2, Neut # (Auto) 6.0, Lymph # (Auto) 0.4 L, Bledsoe # (Auto) 0.1, Eos # (Auto) 0.0, Baso # (Auto) 0.0, Total Counted 100, Neutrophils % (Manual) 94 H, Lymphocytes % (Manual) 6 L, Platelet Estimate Normal, RBC Morphology Normal, D-Dimer 0.49, VBG pH 7.42 H, VBG pCO2 35.3, VBG pO2 45.7 H, VBG HCO3 22.3 L, VBG Total CO2 23.4, VBG O2 Saturation 83.4 H, VBG Base Excess -2.2, VBG Lactic Acid 3.5 H, Sodium 138, Potassium 4.1, Chloride 104, Carbon Dioxide 21 L, Anion Gap 17.1 H, BUN 18 H, Creatinine 0.80, Estimated Creat Clear 76, Estimated GFR 77, Est GFR ( Amer) 93, Glucose 269 H, Calcium 9.6, Total Bilirubin 0.5, AST 38 H, ALT 37, Alkaline Phosphatase 111, Troponin I < 0.01, NT-Pro-B Natriuret Pep 40.0, Total Protein 7.7, Albumin 4.5, Globulin 3.2, Albumin/Globulin Ratio 1.4 03/07/25 02:06: Troponin I < 0.01 03/07/25 00:27 03/07/25 00:27 Orders (Tests/Meds): ED MEDICATIONS Discontinued Medications Generic Name Dose Route Start Last Admin Trade Name Mitulq PRN Reason Stop Dose Admin Aspirin 324 mg 03/07/25 00:20 03/07/25 00:40 Aspirin 81mg Chewable Tablet PO 03/07/25 00:21 Not Given ONCE ONE Lactated Ringer's 1,000 mls @ 999 mls/hr 03/07/25 00:20 03/07/25 01:47 Lactated Ringer's 1000 Ml Bag IV 03/07/25 01:20 Infused .Q1H1M ONE Infusion ORDERS Category Date Time Status XR chest 2V Stat Exams 03/07/25 00:20 Completed Complete Blood Count Auto Diff Stat Lab 03/07/25 00:27 Completed Comprehensive Metabolic Panel Stat Lab 03/07/25 00:27 Completed D-Dimer Stat Lab 03/07/25 00:27 Completed NT Pro Brain Natriuretic Pep. Stat Lab 03/07/25 00:27 Completed Troponin I Q3H Lab 03/07/25 02:06 Completed Troponin I Q3H Lab 03/07/25 06:30 Ordered Troponin I Stat Lab 03/07/25 00:27 Completed Venous Blood Gas Stat RT 03/07/25 00:27 Completed Medical Decision Narrative: In summary, this 50-year-old female with history of BPPV, palpitations, sacroiliitis, carotid artery stenosis, hyperlipidemia presents to the emergency department today with concerns of lightheadedness and fast heart rate. On initial evaluation patient is only slightly tachycardic but otherwise hemodynamically stable, afebrile, GCS 15, no neurologic deficits, no peripheral edema, cardiac exam demonstrates mild tachycardia but no other abnormality, pulmonary exam benign, abdominal exam benign, injection sites are well-appearing. Differential diagnosis includes but is not limited to arrhythmia, orthostatic hypotension, dehydration, I considered ACS or PE though I have low suspicion for these, I did consider the possibility of medication side effect or local anesthetic toxicity however there is not a note in from pain management indicating what they used or and what quantity review of previous notes demonstrates they typically use lidocaine or bupivacaine and dexamethasone. It appears as though the volume of injection is typically 1.5 mL, even if patient got 2 of these this would only be 3.0 mL so I have low suspicion for local anesthetic toxicity. Based on these concerns, I ordered hematologic and serum labs, cardiac workup, chest x-ray, D-dimer. Patient remains on the surveillance system monitor. ECG personally interpreted demonstrates sinus tachycardia, rate 120, normal axis, normal AL QTc, no STEMI or ischemic changes. Patient received IV fluids, aspirin for treatment. Labs personally reviewed demonstrate no leukocytosis or anemia, normal platelets, D-dimer 0.49 by years criteria PE is excluded, VBG with pH 7.42, no hypercarbia, VBG lactic 3.5 the patient is already receiving IV fluids, mild prerenal azotemia is present supporting dehydration/mild volume depletion as a contributor to patient's symptoms unlikely to the lactic acidosis. Anion gap slightly elevated consistent with mild lactic acidosis as well. Normal creatinine, AST slightly elevated but nonactionable, troponin undetectably low less than 0.01 initially, BNP normal at 40. Chest x-ray personally turbid demonstrates no acute thoracic abnormality, see radiology read for final interpretation. Repeat troponin also undetectably low less than 0.01. Patient states she feels better after completing IV fluids and her heart rate is no longer tachycardic, now in the mid 90s. Orthostatics did not demonstrate hypotension or tachycardia with position changes. She is asymptomatic from the symptoms that brought her in and she has ambulated through the ER independently without developing symptoms. I believe patient is appropriate for discharge at this time. She is comfortable with this plan. I did provide the patient with follow-up appointment with cardiology for today at 9 AM which she states she is able to get to. I gave her a note for work to be off and available for her appointment. Patient was given instructions on symptomatic monitoring and management, follow up instructions, and return precautions for the emergency department. Patient indicated understanding and was discharged in stable condition. Critical Care Critical Care Time Critical Care Time: No
--- NOTE | 2025-03-07 23:55 | ECG_ITS ---
APPROVED REPORT Exam: Resting ECG HR:120 bpm ECG Measurements Heart Rate 120 AXES RI 164 P 59 QRSd 74 QRS 5 QT 319 T 49 QTc 391 Conclusion SINUS TACHYCARDIA ABNORMAL RHYTHM ECG No STEMI Electronically signed by : MARY GASTELUM, 03/07/2025 07:10:04
== END 2025-03-07 03:47 | disposition home or self-care (01) ==
PROVIDERS: Emergency Provider Emergency Medicine; PCP Nurse Practitioner Family
DX: R00.0 Tachycardia, unspecified (principal); R74.02 Elevation of levels of lactic acid dehydrogenase [LDH]; E87.29 Other acidosis; R42 Dizziness and giddiness; R73.9 Hyperglycemia, unspecified
CPT/HCPCS: 71046; 80053; 82803; 83880; 84484; 85007; 85025; 85378; 93005; 96360; 99285; J7120

== ENCOUNTER 2025-03-07 09:53 | Outpatient (CLI) | payer OTHER, SELFPAY ==
--- OUTSIDE RECORDS SUMMARY | 2025-03-07 10:04 | XMS_ITS | Clinical Summary ---
Author Organization Healthcare Address [address] [place] [address] Care Team Providers Care Breaking Machine Operator Name Role Phone Campos Obregon MD Unavailable [phone] Pcp, No Primary Care Provider Unavailabl [...] Type Department Care Team Description 12/18/2024 Telephone [facility] General Surgery [address] [place] [address] Campos Obregon MD [facility] Clinical Concern/Question from Last 3 Months Family History Medical [...] (2 - Td or Tdap) 07/06/2016 07/06/2006 [id number] Vaccine (3 - Pfizer risk series) 06/11/2021 [...] Recommendations Await pathology results Indication Rectal cancer (CMS/[facility]) Medications See anesthesia record for anesthesia administered medications. Staff Staff Role Lori Gastelum CRNA CRNA [place], Jolynn Endo Supervisor [employer] Jolene Aguila RN Endo Nurse Campos Obregon [...] of bowel preparation was evaluated using the [place] Bowel Preparation Scale with scores of: left [...] occurred after intervention; performed cold forceps biopsy Campos Obregon MD GI PROCEDURE ORDERABLES Final [...] (Totals for administrations occurring from 0659 to 08 on 02/08/23) Staff Staff Role Lilia Melo RN Endo Nurse Ying Mena Endo Supervisor [employer] Campos Obregon MD Proceduralist Marshall De Jesus [...] of bowel preparation was evaluated using the [place] Bowel Preparation Scale with scores of: right [...] Recently Relevant to Health Maintenance Care Teams Breaking Machine Operator Relationship Specialty Start Date End Date Pcp, Leticia [address] [place] [address] PCP - General Family Medicine 08/02/23 Campos Obregon MD [address] [facility] [address] [place] [address] Surgeon Colon and Rectal Surgery 03/17/22
== END 2025-03-07 23:59 | disposition home or self-care (01) ==
LOC: RT 09:56
PROVIDERS: PCP Nurse Practitioner Family; Visit Provider Physician Assistant
DX: I49.1 Atrial premature depolarization (principal); I47.10 Supraventricular tachycardia, unspecified
CPT/HCPCS: 93225; 93227